=== PATIENT | female | born 2000 | race Caucasian/White ===

== ENCOUNTER 2024-09-03 05:34 | Inpatient (IN) | payer OTHER, SELFPAY ==
[2024-09-03] VITALS (189 sets, daily range): BP systolic 68–134; BP diastolic 32–85; PULSE 81–154; RESP 14; TEMP 36.2–37.7; O2SAT 88–100; BMI 32.3
--- NOTE | 2024-09-03 05:34 | LDADM ---
This patient, Veena Montalvo, was admitted to Labor/Delivery/Recovery 108 on 09/03/24 at 05:35. Plans for labor, pain management and were discussed with patient. Patient/family oriented to hospital policies and general routines including ID bracelet, bed and alarms, visiting hours, pain management, procedures, bathroom and other care routines, personal items, smoking policy, room service/diet and guest tray routines, security routines, and visiting hours. Patient/Family are encouraged to report perceived risks to care and to ask questions if they do not understand what they are told or what they should do. See OBIX for further documentation.
[2024-09-03] MEDS: LACTATED RINGERS 1,000 ML 125 ML IV CONT ×3 (06:33→13:34)
[2024-09-03 06:49] LABS: Basophils Percent Auto 0.2 % (0.2-1.2); Eosinophils Percent Auto 0.2 % (0-4.4); Hematocrit 36.1 % (37.0-47.0); Hemoglobin 12.1 g/dL (12.0-15.0); Immature Granulocyte Absolute 0.18 K/mm3 (0.00-0.031); Immature Granulocyte Percent A 1.8 % (0-0.5); Lymphocytes Absolute Auto 1.76 K/mm3 (0.9-3.2); Lymphocytes Percent Auto 17.5 % (18.3-44.2); Mean Corpuscular HGB Conc 33.5 g/dl (32-36); Mean Corpuscular Volume 92.6 fl (80-100); Mean Platelet Volume 10.4 fl (7.4-10.4); Monocytes Absolute Auto 0.6 K/mm3 (0.1-0.6); Neutrophils Absolute Auto 7.5 K/mm3 (1.3-6.7); Neutrophils Percent Auto 74.3 % (45.5-73.1); Platelet Count Result 181 k/mm3 (150-375); Red Cell Distribution Width 13.2 % (11.5-14.5); White Blood Count 10.1 K/mm3 (4.5-10.0)
[2024-09-03 07:29] LABS: Glucose 89 mg/dL (65-110)
[2024-09-03 07:57] LABS: Rapid Plasma Reagin Non-Reactive (NonReactive)
--- NOTE | 2024-09-03 08:13 | WPDANESEPP ---
Anes - Eval Pre Procedure Procedure: labor epidural Date/Time: 09/03/24 08:13 Preop Diagnosis: Pain during labor Pre Op Diagnosis: Leaking fluid Patient Data Age: 24 Gender: F Height: 1.65 m Weight: 88 kg Last Vital Signs Temp 36.2 C L 09/03/24 07:13 Pulse 97 09/03/24 08:00 BP 118/78 09/03/24 08:00 Allergies Allergy/AdvReac Type Severity Reaction Status Date / Time No Known Allergies Allergy Unverified 10/09/13 02:34 Home Medications Medication Instructions Recorded Confirmed Type No Home Medications 09/03/24 09/03/24 History Laboratory Tests 09/03/24 09/03/24 06:20 07:13 WBC 10.1 H K/mm3 (4.5-10.0) RBC 3.90 L M/mm3 (4.2-5.4) Hgb 12.1 g/dL (12.0-15.0) Hct 36.1 L % (37.0-47.0) MCV 92.6 fl (80-100) MCH 31.0 pg (26-34) MCHC 33.5 g/dl (32-36) RDW 13.2 % (11.5-14.5) Plt Count 181 k/mm3 (150-375) MPV 10.4 fl (7.4-10.4) Immature Gran % (Auto) 1.8 H % (0-0.5) Neut % (Auto) 74.3 H % (45.5-73.1) Lymph % (Auto) 17.5 L % (18.3-44.2) [place] % (Auto) 6.0 % (2.6-8.5) Eos % (Auto) 0.2 % (0-4.4) Baso % (Auto) 0.2 % (0.2-1.2) Lymph # (Auto) 1.76 K/mm3 (0.9-3.2) [place] # (Auto) 0.6 K/mm3 (0.1-0.6) Eos # (Auto) 0.0 K/mm3 (0-0.3) Baso # (Auto) 0.0 K/mm3 (0.0-0.1) Abs Immat Gran (auto) 0.18 H K/mm3 (0.00-0.031) Absolute Neuts (auto) 7.5 H K/mm3 (1.3-6.7) Absolute Nucleated RBC 0.000 K/mm3 (0.0-0.012) Nucleated RBC % 0.0 % (0.0-0.2) Glucose 89 mg/dL (65-110) RPR Non-reactive (NonReactive) HIV 1&2 Ab/P24 Ag 4thGn Pending Blood Type AB Positive Antibody Screen Negative Patient hx anesthesia problems: none Family hx anesthesia problems: none Results Review: All pre-operative results and documents have been reviewed as part of the pre-operative evaluation. [facility] Past Medical History Medical History History of miscarriage Surgical History Surgical History No history of previous surgery Social History Social History Smoking status: Never smoker Substance use: never Spiritual care concerns: No Exam Day of Procedure 09/03/24 08:13 Patient weight: obese Heart: regular rate and rhythm Lungs: clear to auscultation and normal air movement Airway: Mallampati scale class II Neurological: alert and oriented
[2024-09-03 08:18] LABS: HIV 1/2 Ab P24 Ag Result Negative (Negative)
[2024-09-03] MEDS: TERBUTALINE SULFATE 1 MG/ML VIAL 0.25 MG SUB-Q (09:15)
--- NOTE | 2024-09-03 09:21 | WPDOBADMIT ---
Obstetrics - Admit Note Admission Note: record reviewed. No pertinent additions to the history and/or any subsequent changes in the physical findings that are not consistent with the expected course of the were found. Patient presents for SROM of clear fluid at 0400. Contractions starting soon after. Good movement. Expectant management, patient desires epidural. Additions to the history and/or subsequent changes in the physical findings follow. None.
[2024-09-03 11:36] LABS: Glucose Point of Care 80 mg/dl (65-105)
[2024-09-03 13:37] LABS: Glucose Point of Care 77 mg/dl (65-105)
[2024-09-03 15:48] LABS: Glucose Point of Care 85 mg/dl (65-105)
[2024-09-03] MEDS: OXYTOCIN 30 UNITS/NS 500 ML 30 UNITS/500 ML BAG 999 UNITS IV CONT (17:13)
--- NOTE | 2024-09-03 17:19 | PM.OBPRVD ---
OB - Vaginal Delivery Note Procedure Delivery date: 09/03/24 Delivery monitor: External Uterine and Internal FHT Route of delivery: Episiotomy description: None Laceration Description: Perineal - 2nd Degree Delivery repair: vicryl Specimen: No Quantitative Blood Loss (ml): 100 Anesthesia type: Epidural Disposition: Floor Complications: No immediate complications Narrative: See H&P and notes for details on patient's admission and labor. She progressed to complete cervical dilation and at the appropriate time began pushing. With adequate expulsive efforts by the mother, the baby's head was delivered without difficulty. Nuchal cord was present x1 and was easily reduced. The baby's right shoulder was anterior and delivered under the pubic symphysis without difficulty. The posterior shoulder and the rest of the baby delivered without difficulty. The umbilical cord was doubly clamped and cut after 60 seconds of delayed cord clamping. Care of the infant was then assumed by the nursing staff. Baby Date of : 09/03/24 Gestational Age by Date: 38 gender: Male presentation: vertex position: Left Occiput Anterior Placenta delivery description: Expressed Cord Vessel Description: 3 Vessels, Nuchal Cord, Reduced and Delayed Cord Clamping
[2024-09-03] MEDS: OXYTOCIN 30 UNITS/NS 500 ML 30 UNITS/500 ML BAG 125 UNITS IV CONT (17:40)
[2024-09-03] MEDS: WITCH HAZEL 40 PADS 1 PAD TOPICAL (19:08)
[2024-09-03] MEDS: BENZOCAINE 20% AER SPR (*SP) 56 GM CAN 1 SPRAY TOPICAL (19:09)
[2024-09-03] MEDS: IBUPROFEN 600 MG TABLET PO (21:06)
[2024-09-03] MEDS: ACETAMINOPHEN 325 MG TABLET 650 MG PO (21:06)
[2024-09-04 00:11] VITALS: BP 96/54; PULSE 99; RESP 18; TEMP 36.8; O2SAT 98
[2024-09-04] MEDS: ACETAMINOPHEN 325 MG TABLET 650 MG PO ×3 (03:59→20:02)
[2024-09-04] MEDS: IBUPROFEN 600 MG TABLET PO ×3 (04:00→20:02)
[2024-09-04 04:41] LABS: Hematocrit 31.5 % (37.0-47.0); Hemoglobin 10.4 g/dL (12.0-15.0)
--- NOTE | 2024-09-04 07:20 | PC.NURSE ---
Patient visiting in first floor nursery.
--- NOTE | 2024-09-04 08:44 | P.PNOB_ITS ---
OB - PN: Subj Subjective Date/time seen: 09/04/24 08:44 Interval history: PPD#1 Doing well, pain minimal Tolerating general diet Voiding without issue Baby weaned off CPAP, watching glucose levels OB - PN: Obj Data Labs 09/04/24 03:56 09/03/24 07:13 Labs: Laboratory Results - last 24 hr 09/03/24 09/03/24 09/03/24 11:27 13:32 15:45 Hgb Hct POC Capillary Glucose 80 77 85 09/04/24 03:56 Hgb 10.4 L Hct 31.5 L POC Capillary Glucose OB - PN A/P Assessment and Plan (1) (spontaneous vaginal delivery): Code(s): O80 - Encounter for full-term uncomplicated delivery Status: Acute Plan day: 1 Plan: routine care Time Spent With Patient Time: Total time spent is greater than 50% in coordination of care (as documented) at patient's floor/unit and/or counseling patient: Review of Systems Review of Systems: All systems reviewed & are unremarkable except as noted in HPI and below Exam Const: General: comfortable and no acute distress Orien tation/consciousness: patient oriented x3 Resp: Effort & Inspection: normal respiratory effort
--- NOTE | 2024-09-04 08:45 | PC.NURSE ---
Patient downstairs in level 2 nursery with - will check back with patient once she is back on the unit. ( consult)
[2024-09-04] MEDS: DOCUSATE SODIUM 100 MG CAPSULE PO ×2 (09:59→17:34)
[2024-09-04] MEDS: MULTIVIT/MIN/PREN/FOL AC/IRON TABLET 1 TAB PO (09:59)
[2024-09-04 10:14] VITALS: BP 109/61; PULSE 89; RESP 20; TEMP 36.9; O2SAT 100
[2024-09-04 11:50] VITALS: BP 116/62; PULSE 89; RESP 16; TEMP 36.6; O2SAT 100
--- NOTE | 2024-09-04 13:14 | PC.NURSE ---
1300. Introductions were made, then consulted with patient to assess needs related to . Mother led the conversation with her?plans to feed?her infant and the?experience so far. Mother explains that she is no longer planning to breastfeed infant. She explains she changed her mind because she is going to be going back to work and it will be a lot of work for her. She plans instead to bottle feed with formula. Encouraged mom that it was her choice and we support her decision. Explained to mom to call for assistance with formula feeding if she has questions or concerns. Mom verbalized understanding. Reported to the primary RN.
[2024-09-04 20:05] VITALS: BP 92/56; PULSE 81; RESP 16; TEMP 36.6; O2SAT 99
[2024-09-05 07:25] VITALS: BP 97/54; PULSE 88; RESP 16; TEMP 36.8; O2SAT 100
[2024-09-05] MEDS: ACETAMINOPHEN 325 MG TABLET 650 MG PO (07:41)
[2024-09-05] MEDS: DOCUSATE SODIUM 100 MG CAPSULE PO (07:41)
[2024-09-05] MEDS: IBUPROFEN 600 MG TABLET PO (07:41)
--- NOTE | 2024-09-05 15:57 | PC.NURSE ---
Patient viewed the discharge video Mother & Baby Care, The First Two Weeks . Patient was given the opportunity and encouraged to ask questions. Patient verbalized understanding of information shared and has been given the mother/baby guide for home reference.
[2024-09-06 10:21] VITALS: BP 113/61; PULSE 79; RESP 16; TEMP 36.7; O2SAT 100
--- NOTE | 2024-09-10 07:14 | P.DS_ITS ---
DS: Admitting Diagnosis Discharge Date 09/05/24 Admitting Diagnosis elective induction of labor DS: Discharge Diagnosis Discharge Diagnosis (1) (spontaneous vaginal delivery): Code(s): O80 - Encounter for full-term uncomplicated delivery Status: Acute OB - DS: Summary OB Procedures : None OB Procedures Intrapartum: Spontaneous Vag Delivery OB Procedures: : None Peripartum Data Laceration Description: Perineal - 2nd Degree Episiotomy description: None Time Spent with Patient Time attestation: Total time spent providing and/or coordinating discharge services: Discharge Plan Discharge Attending physician on discharge: Mu Chavez Consulting providers: Allie Torres Discharging Clinician: Mu Chaevz Patient Disposition: Home, Self-Care Activity: may shower, as tolerated and pelvic rest Diet: as tolerated Discharge Instructions: Education: Mom and Baby Guide Given to: Mother Follow-Up: Call your delivering provider's office for an appointment to be seen in: 4 Weeks Mom and baby should come to the [facility] for the follow-up appointment. Appointment Date/Time: September 06, 2024 at 10:00 am What to expect at your follow-up visit: Blood Pressure Check Physical Assessment Call [phone] if you are unable to keep your appointment time. BREAST CARE: * Wear a snug supportive bra. * For engorgement discomfort: Bottle Feeding: * May apply ice packs PERINEAL CARE: * Until bleeding stops, use your willard bottle after urinating * Change your pad frequently throughout the day * You may take sitz baths several times a day (fill your bathtub with warm water and soak for 20 minutes.) Do NOT bathe in the water * No tub baths until seen by your physician - You may shower ACTIVITY: * Rest as much as possible. * Do not exercise or lift anything heavier than your baby (such as laundry or other children.) * Avoid stairs or driving as much as possible. * Do not put anything into the vagina. No douching, tampons, or sexual activity until seen by physician. NOTIFY PHYSICIAN IF YOU HAVE ANY QUESTIONS OR IF ANY OF THE FOLLOWING SYMPTOMS OCCUR: * If your vaginal bleeding becomes foul smelling. * If your vaginal bleeding becomes more heavy than a period or if your bleeding changes from pink to bright red. However, you may pass an occasional walnut- sized clot once or twice for the first week . * If you experience a sharp, shooting pain in your calves. * If you discover a hard, reddened area on your breast or if you experience flu- like symptoms. DIET: * Eat regular, well-balanced meals. * Drink plenty of fluids daily. Stand Alone Forms: General Discharge Information Follow-up/Referrals: Mu Chavez MD [Physician] - 4 Weeks Discharge Medications: New docusate sodium 100 mg Capsule 100 mg PO BID PRN (Reason: Constipation) Qty: 60 0RF ibuprofen 600 mg Tablet 600 mg PO Q6H PRN (Reason: Cramping) Qty: 30 0RF Date of admission: 09/03/24 05:34 Primary Care Provider: PHYSICIAN,CAMPUS COORDINATOR Admitting Provider: Mu Chavez Attending physician on admission: Mu Chavez Condition: Stable
== END 2024-09-05 18:20 | disposition home or self-care (01) | DRG 807 ==
LOC: ANHLDR 06:12 → ANHOBOP 07:33 → ANHLDR 07:34 → ANHOB2 21:35
PROVIDERS: Admitting Provider Obstetrics & Gynecology; Visit Provider Obstetrics & Gynecology
DX: O24.429 Gestational diabetes mellitus in childbirth, unspecified control (principal); Z37.0 Single live birth; O70.1 Second degree perineal laceration during delivery; O69.81X0 Labor and delivery complicated by cord around neck, without compression, not applicable or unspecified; Z3A.37 37 weeks gestation of pregnancy
CPT/HCPCS: 36415; 82947; 82948; 85014; 85018; 85025; 86592; 86703; 86850; 86900; 86901; A9270; G0432; J2590; J2795; J3105; J7120

== ENCOUNTER 2024-10-06 20:27 | Emergency (ER) | payer OTHER, SELFPAY ==
--- NOTE | ~2024-10-06 | CT_ITS ---
CT of the Abdomen and Pelvis: Indication: Gallbladder attack Technique: 2.5 mm axial scans were obtained through the abdomen and pelvis following intravenous adm inistration of 100 cc of Omnipaque 350. Dose reduction technique was used on this scan by utilizing a utomated exposure control and iterative reconstruction technique. The dose-length product (DLP) was 5 31.20 mGy-cm. Findings: Scans through the lung bases are unremarkable. The liver, spleen, pancreas, gallbladder, adrenals and kidneys are within normal limits. No evidence of aortic aneurysm. Left-sided IVC noted. No lymphadenopathy. No bowel obstruction or bowel wall thickening. There is no evidence to suggest acute appendicitis. Images through the pelvis were performed. Urinary bladder unremarkable. No pelvic mass evident. No as cites. Impression: No acute abnormality. Reviewed, dictated and finalized at [facility]. D SAW RUNNER Impression: No acute abnormality.
--- NOTE | 2024-10-06 20:32 | ECG_ITS ---
Test Date: 2024-10-06 20:42:12 Measurements Intervals [place] Rate: 90 P: 13 RI: 165 QRS: 45 QRSD: 78 T: 50 QT: 360 QTc: 441 Interpretive Statements SINUS RHYTHM LOW QRS VOLTAGE IN PRECORDIAL LEADS [QRS DEFLECTION < 1.0 mV IN CHEST LEADS] No previous ECG available for comparison Electronically Signed On 10-07-2024 08:40:54 ARCHITECTURAL REPRESENTATIVE by Sarah Pearson M.D.
[2024-10-06 20:43] VITALS: BP 138/78; PULSE 102; RESP 16; TEMP 36.9; O2SAT 97
[2024-10-06 21:07] LABS: Basophils Percent Auto 0.6 % (0.2-1.2); Eosinophils Absolute Auto 0.1 K/mm3 (0-0.3); Eosinophils Percent Auto 1.4 % (0-4.4); Hematocrit 37.5 % (37.0-47.0); Hemoglobin 12.7 g/dL (12.0-15.0); Immature Granulocyte Absolute 0.05 K/mm3 (0.00-0.031); Immature Granulocyte Percent A 0.7 % (0-0.5); Lymphocytes Absolute Auto 3.02 K/mm3 (0.9-3.2); Lymphocytes Percent Auto 43.5 % (18.3-44.2); Mean Corpuscular HGB Conc 33.9 g/dl (32-36); Mean Corpuscular Hemoglobin 30.2 pg (26-34); Mean Corpuscular Volume 89.3 fl (80-100); Mean Platelet Volume 9.7 fl (7.4-10.4); Monocytes Absolute Auto 0.5 K/mm3 (0.1-0.6); Monocytes Percent Auto 7.8 % (2.6-8.5); Neutrophils Absolute Auto 3.2 K/mm3 (1.3-6.7); Platelet Count Result 204 k/mm3 (150-375); Red Cell Distribution Width 12.7 % (11.5-14.5); White Blood Count 6.9 K/mm3 (4.5-10.0)
[2024-10-06 21:21] LABS: Alanine Aminotransferase 70 U/L (6-35); Albumin Level 4.1 g/dL (3.5-5.1); Alkaline Phosphatase 74 U/L (38-126); Anion Gap 5 mmol/L (4-12); Aspartate Amino Transferase 75 U/L (14-36); Bilirubin,Total 0.5 mg/dL (0.2-1.3); Blood Urea Nitrogen 9 mg/dL (7-17); Calcium 8.8 mg/dL (8.4-10.2); Carbon Dioxide 25 mmol/L (22-30); Chloride 106 mmol/L (98-107); Estimated Glomerular Filt Rate > 60; Glucose 103 mg/dL (65-110); Lipase 258 U/L (23-300); Potassium 4.2 mmol/L (3.4-5.0); Sodium 136 mmol/L (137-145)
--- NOTE | 2024-10-06 21:25 | ED_ITS ---
HPI - Abdominal Pain General Chief Complaint: Abdominal Pain Stated Complaint: severe pain upper abd, under chest Time Seen by Provider: 10/06/24 20:57 History of Present Illness HPI narrative: 24-year-old female who is approximately 1 month presenting to the emergency room with chief complaint of epigastric abdominal pain, back pain. Patient states that she has had 2 episodes where she has excruciating pain that came and no or and then alleviated self shortly thereafter. She states her last episode was approximately 30 minutes prior to arrival while she was in bed not doing anything exertional. Pain is not associated with eating or movement. She endorses nausea vomiting during the 1st episode but no present nauseousness or vomiting or diarrhea. Denies any fever, chills. was uncomplicated and she had normal spontaneous vaginal delivery without any hemorrhage or any concerns during the . Denies any chest pain, shortness a breath, headache, vision changes, trauma, vaginal bleeding, discharge or UTI symptoms. Related Data Allergies Allergy/AdvReac Type Severity Reaction Status Date / Time No Known Allergies Allergy Unverified 10/09/13 02:34 Review of Systems 2 Review of Systems: As reviewed above in HPI PMFSH Past Medical History Medical History History of miscarriage Surgical History Surgical History No history of previous surgery Social History Social History Smoking status: Never smoker Substance use: never Do You Feel Safe in your Home?: Yes Lack of Transportation: No Lack of Food: Never True Current Housing: I Have Housing Concerned About Future Housing: No Difficulty Paying Gas/Electric Bills: No Difficulty Paying for Meds: No Currently Unemployed: No Education: High School Diploma/GED Difficulty w/ Childcare or Family Care: No Spiritual care concerns: No Exam 2 Narrative: GENERAL: [Well-appearing, well-nourished, and in no acute distress.] HEAD: [Normocephalic, atraumatic.] EYES: [PERRLA and EOMI.] ENT: Nares clear, no rhinorrhea or epistaxis. Mucous membranes moist. NECK: Supple. CHEST: [Clear to auscultation. No respiratory distress.] HEART: [Regular rate and rhythm]. No murmur heard. [Normal peripheral pulses.] ABDOMEN: [Soft, nondistended], mild epigastric tenderness but no CVA tenderness, [No rigidity or guarding] EXTREMITIES: Normal range of motion. [No edema.] SKIN: Warm, dry, no rash. NEURO: [No focal deficits]. Alert and oriented [x3.] PSYCH: [Normal mood and affect.] Course Vital Signs Vital signs: Vital Signs Temperature 36.9 C 10/06/24 20:43 Pulse Rate 102 H 10/06/24 20:43 Respiratory Rate 16 10/06/24 20:43 Blood Pressure 138/78 10/06/24 20:43 Pulse Oximetry 97 10/06/24 20:43 Temperature 36.4 C 10/07/24 01:06 Pulse Rate 95 10/07/24 01:06 Respiratory Rate 14 10/07/24 01:06 Blood Pressure 120/65 10/07/24 01:06 Pulse Oximetry 95 10/07/24 01:06 MDM - Abdominal Pain MDM Narrative Medical decision making narrative: 24-year-old female presenting to the emergency department for evaluation of epigastric and back pain. She states that the cane comes and goes in waves and is very short-lived. No history of gallstones or appendicitis or nausea. No abdominal surgeries. She had a normal spontaneous vaginal delivery over 1 month prior without any complications during the or afterwards. Patient states that she did have an episode nausea vomiting or her last flare up of this pain a week ago but has not had any nausea vomiting or diarrhea since. She has some minimal epigastric tenderness with palpation but otherwise is well appearing without any signs of peritonitis. Vital signs are reassuring without any fever, hypoxia, significant tachycardia blood pressure concerns. Differential includes cholelithiasis, cholecystitis, renal colic, renal stones, less likely pancreatitis or urinary infection. CBC, CMP, lipase, urinalysis were obtained as well as a CT scan with IV contrast. Patient presently is feeling okay without any symptoms so will hold off on additional medications unless she has recurrence of her symptoms. Workup shows no leukocytosis or anemia. Normal platelets. Chemistry panel with normal electrolytes and normal renal function panel normal glucose. LFTs have some mild elevations in both ALT and AST but total bilirubin is normal as well as the lipase. Urinalysis has some leukocyte esterase and white blood cells as well as back area however patient has no urinary complaints whatsoever denies any burning, itchiness, discharge her other complaints in the general urinary system. Elected to not treat this as this is likely asymptomatic bacteriuria but did inform the patient that if she has any development of symptoms to seek re-evaluation for this. test negative. Her CT scan shows normal appearing appendix without any bowel findings, no hydronephrosis or nephrolithiasis and bladder appears unremarkable. Gallbladder otherwise appears unremarkable by CT scan without any biliary dilatation. Given patient's elevated LFTs and the classic signs and symptoms of biliary colic I believe she likely passed a gallbladder stone and given her resolution of symptoms without any evidence of gallbladder stones or gallbladder sludge or any acute cholecystitis I believe she can be safe for discharge home at this time. I discussed the findings with the patient as well as the plan of care going forward including low-fat diet and monitoring for any recurrence and she expressed understanding of the instructions and outpatient follow-up. She was given return precautions including any worsening pain, recurrent nausea, vomiting, any other concerns such as fever or urinary infection symptoms. Patient stable for discharge at this time. Medical Records Attestation: I reviewed the patient's medical records. Lab Data Attestation: I reviewed the patient's lab results. 10/06/24 21:01 10/06/24 21:01 Labs: Lab Results 10/06/24 10/06/24 10/06/24 Range/Units 21:01 22:44 22:47 WBC 6.9 (4.5-10.0) K/mm3 RBC 4.20 (4.2-5.4) M/mm3 Hgb 12.7 (12.0-15.0) g/dL Hct 37.5 (37.0-47.0) % MCV 89.3 (80-100) fl MCH 30.2 (26-34) pg MCHC 33.9 (32-36) g/dl RDW 12.7 (11.5-14.5) % Plt Count 204 (150-375) k/mm3 MPV 9.7 (7.4-10.4) fl Immature Gran % (Auto) 0.7 H (0-0.5) % Neut % (Auto) 46.0 (45.5-73.1) % Lymph % (Auto) 43.5 (18.3-44.2) % [place] % (Auto) 7.8 (2.6-8.5) % Eos % (Auto) 1.4 (0-4.4) % Baso % (Auto) 0.6 (0.2-1.2) % Lymph # (Auto) 3.02 (0.9-3.2) K/mm3 [place] # (Auto) 0.5 (0.1-0.6) K/mm3 Eos # (Auto) 0.1 (0-0.3) K/mm3 Baso # (Auto) 0.0 (0.0-0.1) K/mm3 Abs Immat Gran (auto) 0.05 H (0.00-0.031) K/mm3 Absolute Neuts (auto) 3.2 (1.3-6.7) K/mm3 Absolute Nucleated RBC 0.000 (0.0-0.012) K/mm3 Nucleated RBC % 0.0 (0.0-0.2) % Sodium 136 L (137-145) mmol/L Potassium 4.2 (3.4-5.0) mmol/L Chloride 106 (98-107) mmol/L Carbon Dioxide 25 (22-30) mmol/L Anion Gap 5 (4-12) mmol/L BUN 9 (7-17) mg/dL Creatinine 0.70 (0.7-1.0) mg/dL Estim Creat Clear Calc Not Reportable Estimated GFR > 60 (59 - ) Glucose 103 (65-110) mg/dL Calcium 8.8 (8.4-10.2) mg/dL Total Bilirubin 0.5 (0.2-1.3) mg/dL AST 75 H (14-36) U/L ALT 70 H (6-35) U/L Alkaline Phosphatase 74 (38-126) U/L Total Protein 7.0 (6.3-8.2) g/dL Albumin 4.1 (3.5-5.1) g/dL Lipase 258 (23-300) U/L Urine Color Yellow (Yellow) Urine Appearance Cloudy H (Clear) Urine pH 5.5 (5.0-9.0) Ur Specific [place] 1.006 (1.001-1.035) Urine Protein Negative (Negative) mg/dL Urine Glucose (UA) Negative (Negative) mg/dL Urine Ketones Negative (Negative) mg/dL Ur Blood (Man) 2+ H (Negative) Urine Nitrate Negative (Negative) Urine Bilirubin Negative (Negative) Urine Urobilinogen 0.2 (<2.0) mg/dL Add Ur Microanalysis Reviewed Leukocyte Esterase Rfl 2+ H (Negative) ENRIQUE/UL Urine RBC 6-10 H (0-2) /hpf Urine WBC 21-50 H (0-3) /hpf Ur Squamous Epith Cells Few (Few) /hpf Urine Bacteria 3+ H /hpf Urine Casts 0-2 Urine Mucus Present /lpf POC Urine HCG, Qual Negative (Negative) Imaging Data Attestation: I personally reviewed and interpreted this imaging study as follows: Discharge Plan Discharge Clinical Impression: Gallbladder attack, Abnormal LFTs (liver function tests), Asymptomatic bacteriuria Patient Disposition: Home, Self-Care Condition: Stable Instructions: Antibiotic Form, Biliary Colic (ED) Additional Instructions: Your signs and symptoms as well as her labs are very classic for was called biliary colic or gallbladder attack. There are no identifiable stones or signs of a gallbladder that needs to come out emergently and there is no infection actively. If this were to recur constantly or have worsening symptoms like persistent pain that does not go away, intractable nausea or vomiting denied would recommend you get repeat evaluation or follow-up with your regular doctor outpatient to get referred to General surgery however at this time you are safe for discharge home. Patient Language: Azeri Prescriptions: No Action docusate sodium 100 mg Capsule 100 mg PO BID PRN (Reason: Constipation) Qty: 60 0RF ibuprofen 600 mg Tablet 600 mg PO Q6H PRN (Reason: Cramping) Qty: 30 0RF Follow-up/Referrals: PHYSICIAN,MACHINE SET UP OPERATOR [employer] [Primary Care Provider] - Time of Disposition: 02:27
[2024-10-06 22:49] LABS: BEDSIDEPREGUCG Negative (Negative)
[2024-10-06 22:51] VITALS: BP 119/72; PULSE 84; RESP 16; TEMP 36.7; O2SAT 100
[2024-10-06 23:05] LABS: Add Urine Microscopic? YES; Appearance Urine Cloudy (Clear); Bacteria Urine 3+ /hpf; Bilirubin Urine Negative (Negative); Blood Urine 2+ (Negative); Color Urine Yellow (Yellow); Glucose Urine UA Negative (Negative); Ketones Urine Negative (Negative); Leukocyte Esterase Ur 2+ LEU/UL (Negative); Mucus Urine Present /lpf; Need Manual Microscopic Reviewed; Nitrate Urine Negative (Negative); Non Pathogenic Casts 0-2; Protein Urine Negative (Negative); Specific Grav Ur 1.006 (1.001-1.035); Squamous Epithelial Cell Urine Few /hpf (Few); Urobilinogen Urine 0.2 mg/dL (<2.0); WBC Urine 21-50 /hpf (0-3); pH Urine 5.5 (5.0-9.0)
[2024-10-07 01:06] VITALS: BP 120/65; PULSE 95; RESP 14; TEMP 36.4; O2SAT 95
--- OUTSIDE RECORDS SUMMARY | 2024-10-11 05:28 | XMS_ITS | Data Portability ---
Author Organization [facility] [place] Address [address] [place] [place] [address] [place] [address] Assessment No assessment recorded. Plan of Treatment Reminders Order Date Submit Date Provider Last Modified By Organization Details Last Modified Time Details Appointments POST 2024 08:30A M ROSALBA CARLSON MD Not available Not available Not available Lab None recorded . Referral None recorded . Procedures None recorded . Surgeries None recorded . Imaging US, obstetri c, follow-u p 2023 024 [address], [address], [place], [address], 08/03/2024 12:20:53 US, obstetravani c, follow-u p [email or web address] [place] [address] [facility] [address], [place], [address], 08/24/2024 12:55:57 Medication Orders None recorded . Patient TargetsNo targets recorded. Patient InstructionsNo instructions recorded. Reason for Referral None Reported. Results Created Date Observation Date Name Description Value Unit Range Abnormal Flag Note LastModifiedBy Organization Detail LastModifiedTime 07/06/20 24 07/06/2024 HEMAT OCRIT (HCT) HCT 35.9 % (based on docume nted legal sex) 34.0-4 5.0 Not Available [facility] (Lab) [address], [place], [address], 07/07/2024 10:10:44 09/13/20 24 07/06/2024 HEMOG LOBIN (HGB) HGB 11.9 g/dL (based on docume nted legal sex) 11.6-1 5.4 Not Available [facility] (Lab) [address], [place], [address], 07/07/2024 10:10:44 07/06/20 24 07/06/2024 GTT - GESTA AUTUMN L SCREE N, ACOG OB glucose, 1 hour screen 160 mg/dL 70-135 high Not Available [facility] (Lab) [address], [place], [address], 07/07/2024 10:10:45 07/06/20 24 07/06/2024 HIV 1/2 ANTIG EN/AN TIBOD Y, REFLE X CONFI RMATI ON HIV antigen/anti body Nonrea ctive nonrea ctive HIV-1 antig en and HIV-1 /HIV- 2 antib odies were not detec va. No labor atory evide nce of HIV infec tion. Not Available [facility] (Lab) [address], [place], [address], 07/07/2024 10:10:45 07/06/20 24 07/06/2024 RPR SCREE N, REFLE X TITER /CONF IRMAT ION RPR screen Nonrea ctive nonrea ctive Not Available [facility] (Lab) [address], [place], [address], 07/07/2024 10:10:46 07/13/20 24 07/13/2024 GTT - GESTA AUTUMN L, 3 HOUR, ACOG glucose, fasting acog 74 mg/dL 70-94 Fasti ng: Y Not Available [facility] (Lab) [address], [place], [address], 07/14/2024 06:32:16 07/13/20 24 07/13/2024 GTT - GESTA AUTUMN L, 3 HOUR, ACOG glucose, 1 hour acog 166 mg/dL 70-179 Fasti ng: Y Not Available [facility] (Lab) [address], [place], [address], 07/14/2024 06:32:16 07/13/20 24 07/13/2024 GTT - GESTA AUTUMN L, 3 HOUR, ACOG glucose, 2 hour acog 169 mg/dL 70-154 high Fasti ng: Y Not Available [facility] (Lab) [address], [place], [address], 07/14/2024 06:32:16 07/13/20 24 07/13/2024 GTT - GESTA AUTUMN L, 3 HOUR, ACOG glucose, 3 hour acog 148 mg/dL 70-139 high Fasti ng: Y Not Available [facility] (Lab) [address] [place], [address], 07/14/2024 06:32:16 08/31/20 24 08/31/2024 CULTU RE: GROUP B STREP SCREE N, REFLE X SUSCE PTIBI LITY result report SEE RESULT S BELOW Test: Cultu re: Group B Strep , Refle x Susce ptibi lity ([facility] ) Speci men Sourc e: Vagin a/Rec darío Speci men Type: Vagin al/Re ctal Speci men Date: 2023 1606 Resul t Date: 09/03 1404 Resul t Statu s: Final resul t Abnor mal: No Resul ting Lab: [facility] [address] [facility] [address] Tel: CULTU RE ----- ----- ----- --- No Group B strep isola va at 2 days (juanjo ctive broth enhan cemen t) Not Available [facility] (Lab) [address], [place], [address], 09/03/2024 15:07:41 08/03/20 24 08/03/2024 US, obste tric, follo w-up No observ ation record ed. [facility] [address], [place], [address], 08/03/2024 17:17:41 08/03/20 24 08/03/2024 US, obste tric, follo w-up No observ ation record ed. [email or web address] [address], [place], [address], 08/06/2024 15:39:18 08/24/2008/24/2024 US, obste tric, follo w-up No observ ation record ed. [facility] [address], [place], [address], 08/24/2024 13:56:13 08/24/2008/24/2024 US, obste tric, follo w-up No observ ation record ed. JANELL [address], [place], [address], 08/27/2024 10:28:40 Result Notes None recorded. Problems Name Problem SNOMED Code Status Onset Date Resolution Date Notes Provider Name and Address Organization Details Recorded Time Pregnanc y 23542216 Completed 202309/13/2024 Harjeet puga, [facility] 4 16:27:58 Anxiety 15273410 Completed Untreate d, possible panic attacks Nilton Rodríguez MD [address], [place], [address], [facility] 4 13:07:27 Gonorrhe a 39652610 Completed treated Nilton Rodríguez MD [address], [place], [address], [facility] 4 13:07:27 clubfoot 3853028849 9101 Completed 2023 possibly - to see [facility] 06/27 @ 1:45 Level II & OV Eun Dietrich null, [facility] 14:54:27 History of SARS-CoV -2 6203559660 75725549 Active 2023 ROSALBA CARLOSN MD [address], [place], [address], [facility] 4 11:18:44 History of SARS-CoV -2 9344921320 31721059 Completed 2023 ROSALBA CARLSON MD [address], [place], [address], [facility] 11:18:44 Gestatio nal diabetes mellitus 30781207 Completed serial growth , checking bs TINA puga, [facility] 17:55:50 Gestatio nal diabetes mellitus 62177846 Active serial growth , checking bs TINA puga, [facility] 17:55:50 Problem Notes None recorded. Procedures Surgical History None recorded. Imaging Results Imaging Date Name Status LastModified by Organiz ation Details LastModified Time 08/03/2024 US, obstetric, follow-up completed [facility] [address], [place], [address], 08/03/2024 17:17:41 08/03/2024 US, obstetric, follow-up completed [email or web address] [address], [place], [address], 08/06/2024 15:39:18 08/24/2024 US, obstetric, follow-up completed [facility] [address], [place], [address], 08/24/2024 13:56:13 08/24/2024 US, obstetric, follow-up completed JANELL [address], [place], [address], 08/27/2024 10:28:40 Procedure Notes None recorded. Medical Equipment None Reported. Allergies No known drug allergies Medications Name Sig Start Date Stop Date Status Note LastModified by Organization Details LastModified Time Zofran 4 mg tablet Take 1 tablet every 4-6 hours by oral route as needed. 07/06 completed Not Available Not Available Not Available active Not Available Not Avai lable Not Available Nexplanon 68 mg subdermal implant Insert 02/15 completed Prescribe d Elsewhere : No Locati on: [facility] Mo dify By: agustin En counter DateTime: 9 07:41:11 PM Not Available Not Available Not Available Vitals Date Recorded Body height Body mass index (BMI) Body weight Systolic blood pressure Diastolic blood pressure Provider Name and Address Organization Details Last Updated DateTime 08/07/2024 165.1 cm 32.4 kg/m2 82866.51 g 138 mm[Hg] 82 mm[Hg] [facility] 4 14:59:08 Date Recorded Body height Body mass index (BMI) Body weight Systolic blood pressure Diastolic blood pressure Provider Name and Address Organization Details Last Updated DateTime 08/24/2024 165.1 cm 32 kg/m2 44258.74 g 130 mm[Hg] 84 mm[Hg] [facility] 4 12:36:29 Date Recorded Body height Body mass index (BMI) Body weight Systolic blood pressure Diastolic blood pressure Provider Name and Address Organization Details Last Updated DateTime 08/31/2024 165.1 cm 32 kg/m2 43173.74 g 136 mm[Hg] 84 mm[Hg] [facility] 4 16:14:53 Social History Question Answer Notes LastModified by Organizat ion Details LastModified Time What Is Your Level Of Alcohol Consumption? Occasional [email or web address] Information not available 02/16/2024 How Many Years Have You Consumed Alcohol? 5 [email or web address] Information not available 02/16/2024 Are You Blind Or Do You Have Difficulty Seeing? No Information not available 02/16/2024 What Is Your Level Of Caffeine Consumption? Heavy [email or web address] Information not available 02/16/2024 How Much Tobacco Do You Chew? None [email or web address] Information not available 02/16/2024 In The 14 Days Before Symptom Onset, Have You Had Close Contact With A Laboratory-confir med COVID-19 While That Case Was Ill? No [email or web address] Information not available 02/16/2024 In The 14 Days Before Symptom Onset, Have You Had Close Contact With A Person Who Is Under Investigation For COVID-19 While That Person Was Ill? No [email or web address] Information not available 02/16/2024 Have You Been To An Area Known To Be High Risk For COVID-19? No [email or web address] Information not available 02/16/2024 Are You Currently Employed? Yes [email or web address] Information not available 03/15/2024 Are You Deaf Or Do You Have Serious Difficulty Hearing? No [email or web address] Information not available 02/16/2024 What Type Of Diet Are You Following? REGULAR [email or web address] Information not available 02/16/2024 What Is The Highest Grade Or Level Of School You Have Completed Or The Highest Degree You Have Received? HG60485-2 [email or web address] Information not available 02/16/2024 What Is Your Occupation? [employer] [email or web address] Information not available 02/16/2024 Are There Any Guns Present In Your Home? No [email or web address] Information not available 02/16/2024 Do You Use Protection During Sex? No [email or web address] Information not available 02/16/2024 Do You Use Your Seat Belt Or Car Seat Routinely? Yes [email or web address] Information not available 02/16/2024 Are You Sexually Active? Yes Information not available 03/15/2024 Do You Have Smoke And Carbon Monoxide Detectors In Your Home? Yes Information not available 02/16/2024 How Much Tobacco Do You Smoke? No [email or web address] Information not available 02/16/2024 Do You Feel Stressed (tense, Restless, Nervous, Or Anxious, Or Unable To Sleep At Night)? [id number] [email or web address] Information not available 02/16/2024 Do You Use Any Illicit Or Recreational Drugs? Yes [email or web address] Information not available 02/16/2024 Do You Use Sunscreen Routinely? No [email or web address] Information not available 02/16/2024 Have You Used IV Drugs? No [email or web address] Information not available 02/16/2024 Sex: Unknown Functional Status Question Answer Note LastModified by Organizat ion Details LastModified Time Do you have difficulty walking or climbing stairs? No [email or web address] Information not available 03/15/2024 Are you able to walk? YESWOREST [email or web address] Information not available 02/16/2024 Are you able to care for yourself? Yes [email or web address] Information not available 03/15/2024 Do you have difficulty dressing or bathing? No [email or web address] Information not available 03/15/2024 What is your exercise level? Occasional [email or web address] Information not available 02/16/2024 Mental Status None recorded. Family History Nothing Reported. Medical History Condition Response Allergies (Food, seasonal, environmental ) N Other N Drug/Latex Allergies/Reactions N Blood Transfusion N Breast Cancer N Dermatologic Disorders N Lung Disease N Defects or Inherited Disease N Breast Problem N Gestational Diabetes N Hematologic disorders N Anesthesia Complications N History of STI N Deep Vein Thrombosis N Polycystic ovary syndrome N Anxiety Disorder N Autoimmune disease N Arthritis N Polyps N Infertility N Acid Reflux (GERD) N History of abnormal pap N Cancer N Varicosities N Stroke N Neurologic/Epilepsy N Endometriosis N High Cholesterol N Fibromyalgia N Headaches N Kidney Disease N Heart Problems N Thyroid Problems N Kidney or Bladder Problems N GI Problems N Eating Disorder N Anemia N Art (IVF or FET) N Psychiatric Illness N Ovarian Cancer N Diabetes N Pulmonary (TB, Asthma) N Hepatitis/Liver Disease N No Past Medical History N Eczema N Urinary Tract Infection N Abuse/Domestic Violence N Asthma N Trauma/Violence N Depression/ depression N Heart Disease N Pre-Eclampsia N Hypertension N Osteoporosis N Thrombophilias N Gynecological History Statement/Question Response N STIs/STDs N Was last menstrual period normal Y HPV Vaccine N Duration of Flow (days) 4 Current Control Method Frequency of Cycle (Q days) 0 Sexually Active? Y Age of first menstrual cycle 15 Date of Last Pap Smear Sexual Problems? N LMP Unknown N Obstetrics History GPAL:G 3 P 1 0 2 1 Type Value Full Term 1 Spontaneous 2 Living 1 Total 3 Past Encounters Encounter ID Performer Location Encounter Start Date Encounter Closed Date Diagnosis/Indication Diagnosis SNOMED-CT Code Diagnosis ICD10 Code [id number] Lina Ardon [place] [address] [address] 02/16/2024 14:16:31 02/16/2024 14:59:03 screening 948904338 Z36.87 Z3A.08 [id number] Nilton Rodríguez MD [place] [address],[place] [address] 02/16/2024 14:18:49 02/16/2024 16:24:21 Amenorrhea 57462735 N91.2 [id number] Lina Ardon [place] [address],[place] [address] 03/15/2024 11:52:10 03/15/2024 12:37:30 screening 705862740 Z36.82 Z3A.12 [id number] Nilton Rodríguez MD [place] [address],[place] [address] 03/15/2024 11:52:27 03/15/2024 14:55:19 Routine care 637677208 Z34.91 [id number] Nilton Rodríguez MD [place] [address],[place] [address] 04/13/2024 10:24:09 04/13/2024 11:46:23 Routine care 521278270 Z34.91 [id number] [facility] [address],[place] [address] 05/11/2024 11:22:03 05/11/2024 12:25:31 screening for malformation 990555471 Z36.3 Z3A.20 [id number] Nilton Rodríguez MD [place] [address],[place] [address] 05/11/2024 11:22:58 05/11/2024 13:09:20 Routine care 097494048 Z34.91 [id number] [facility] [address] [place] [address] 06/15/2024 10:50:40 06/15/2024 12:21:12 screening 196911203 Z36.2 Z3A.25 [id number] Nilton Rodríguez MD [place] [address],[place] [address] 06/15/2024 10:50:59 06/15/2024 12:49:10 Routine care 805887368 Z34.91 [id number] Rajani Cunningham [facility] [address],[place] [address] 06/20/2024 11:57:10 06/21/2024 09:03:31 08690931 Z33.1 [id number] ROSALBA CARLSON MD [place] [address],[place] [address] 07/06/2024 10:13:34 07/06/2024 11:30:00 History of SARS-CoV-2 9718170869 66653029 Z86.16 Gestation period, 28 weeks 62990163 Z3A.28 [id number] Eun Dietrich [place] [address],[place] [address] 07/20/2024 10:50:29 07/20/2024 14:01:45 Gestational diabetes mellitus 21301779 O24.410 [id number] ROSALBA CARLSON MD [place] [address],[place] [address] 07/20/2024 10:50:58 07/20/2024 15:19:49 Gestational diabetes mellitus 80583921 O24.410 History of SARS-CoV-2 29 94013607 24309226 Z86.16 Gestation period, 30 weeks 92224280 Z3A.30 [id number] [facility] [address],[place] [address] 08/03/2024 10:22:11 08/03/2024 11:26:00 Gestational diabetes mellitus 33564587 O24.410 Z86.16 Z3A.32 [id number] ROSALBA CARLSON MD [place] [address],[place] [address] 08/07/2024 14:44:04 08/07/2024 16:05:05 Gestational diabetes mellitus 61563106 O24.410 Gestation period, 33 weeks 57742309 Z3A.33 [id number] Crissy Claudine [place] [address],[place] [address] 08/24/2024 11:27:16 08/24/2024 12:10:58 Gestational diabetes mellitus 23292333 O24.410 Z86.16 Z3A.35 [id number] ROSALBA CARLSON MD [place] [address],[place] [address] 08/24/2024 11:28:00 08/24/2024 12:53:50 Gestational diabetes mellitus 92460187 O24.410 clubfoot [id number] 1 9101 O35.HXX9 Gestation period, 35 weeks 79517014 Z3A.35 [id number] ROSALBA CARLSON MD [place] [address],[place] [address] 08/31/2024 15:57:31 09/04/2024 02:40:03 Gestational diabetes mellitus 55251389 O24.410 Gestation period, 37 weeks 70474666 Z3A.37 Health Concerns Section Related Observation LastModified by Organization Detai ls LastModified Time None Recorded Concern Status LastModified by Organization Details LastModified Time None Recorded Advance Directives Directive None Recorded Payers Encounter Date Sequence Insurance Name Policy Number Policy Cast Covered Member ID Cast Member ID Guarantor Name 08/03/2024 1 [employer] [id number] [employer] [id number] Veena Hanks 08/07/2024 1 [employer] [id number] Veena Hanks [id number] Veena Hanks 08/24/2024 1 [employer] [id number] Veena Hanks [id number] Veena Hanks 08/24/2024 1 [employer] [id number] [employer] [id number] Veena Hanks 08/31/2024 1 [employer] [id number] [employer] [id number] Veena Hanks OBGyn Episode Ob Episode Information Episode Created Date Number of Fetuses Patient Bloodtype Patient rh Status Prepregnancy Weight lbs Domestic Partner Domestic Partner Phone Father Name Carry All Driver Status 03/15/20 24 1 AB Positive 188 CLOSED Fetus Data First Name Last Name Admitted to NICU Weight (g) Sex Living Outcome Pediatric Complications Fetus ID Race Codes Race Delivery Type 3090.09 55 M true Full Term [email or web address] [id number] Vaginal Delivery Problems Problem Notes failed 1 hr - 3hr gtt 07/13Bo y,MFM Appt: 06/27 145p u/s and ov - no club foot noted on ultrasound.bg,rn Problem Name Start Date End Date Resolution Snomed Code Not e Gestational diabetes mellitus 11332166 serial joe wth , checking bs QID Anxiety 78970419 Untreated, possible panic attacks clubfoot 06/15/2024 27356809127325 possibly - to see [facility] 06/27 @ 1:45 Level II & OV History of SARS-CoV-2 07/06/2024 150014090326817632 Gonorrhea 51007556 treated José Calculation JOSÉ Calculation Method Initial José Date Initial Exam Date Initial Exam Provider Initial Ultrasound Date Last Menstrual Period Date Ultra Sound Weeks Gestation Conception by IVF Embryo Age at Transfer Date of Transfer 09/22/20 24 03/15/20 24 02/16/2024 8 Eighteen To Twenty Week José Update Ultra Sound Date Fundal Height At Umbil Quickening Date Ultra Sound Latest Weeks Gestation Final José Confirmed By Final José Confirmed Date Final José Date Ultra Sound Latest Days Gestation 0 [email or web address] 03/15/2024 09/22/20 24 0 Pre- Flowsheet Flowsheet Date 03/15/2024 Copeland Score Blood Edema Fundus Height Fundus Units Glucose Ketones Leukocytes Nitrite Labor Signs Protein Cervic Dilation Cervic Effacement Cervic Station Type Weight in lbs Pre/Post Dialysis Refused Weight 188.739700124251 BP Diastolic BP Location Tested BP Systolic BP Type 75 L arm 121 sitting Fetus Heart Rate Present A 153 Fetus Movement Comments This patient is a 23-year-ol d 3 para 745070 weeks' gestation who presents for initial care. She has a history of term vaginal births. Her medical, surgical, obstetric history is unremarkable. She is vaccinated. She was given precautions recommendations for . We talked about vaccines in . Talked about care in detail. She is having genetic testing. She had a normal 12 week ultrasound. To begin routine care. Flowsheet Date 04/13/2024 Copeland Score Blood Edema Fundus Height Fundus Units Glucose Ketones Leukocytes Nitrite Labor Signs Protein Cervic Dilation Cervic Effacement Cervic Station neg none Type Weight in lbs Pre/Post Dialysis Refused Weight 190.352579083353 BP Diastolic BP Location Tested BP Systolic BP Type 82 L arm 127 sitting Fetus Heart Rate Present A 145 Fetus Movement A No Comments reports recent chest pain, l kassandra she related to anxiety attack, she was laying down. With the tightness and shortness in her sternum help high. [place] like there was a bubble there was painful. She has had panic attacks in the past. She was offered treatment she wants to observe. Flowsheet Date 05/11/2024 Copeland Score Blood Edema Fundus Height Fundus Units Glucose Ketones Leukocytes Nitrite Labor Signs Protein Cervic Dilation Cervic Effacement Cervic Station Type Weight in lbs Pre/Post Dialysis Refused BP Diastolic BP Location Tested BP Systolic BP Type Fetus Heart Rate Present Fetus Movement Comments Flowsheet Date 05/11/2024 Copeland Score Blood Edema Fundus Height Fundus Units Glucose Ketones Leukocytes Nitrite Labor Signs Protein Cervic Dilation Cervic Effacement Cervic Station Type Weight in lbs Pre/Post Dialysis Refused Weight 190.786591534270 BP Diastolic BP Location Tested BP Systolic BP Type 77 L arm 118 sitting Fetus Heart Rate Present A 139 Fetus Movement Comments no complaints, no problems, routine care, anatomy ultrasound today, incomplete Flowsheet Date 06/15/2024 Copeland Score Blood Edema Fundus Height Fundus Units Glucose Ketones Leukocytes Nitrite Labor Signs Protein Cervic Dilation Cervic Effacement Cervic Station Type Weight in lbs Pre/Post Dialysis Refused BP Diastolic BP Location Tested BP Systolic BP Type Fetus Heart Rate Present Fetus Movement Comments Flowsheet Date 06/15/2024 Copeland Score Blood Edema Fundus Height Fundus Units Glucose Ketones Leukocytes Nitrite Labor Signs Protein Cervic Dilation Cervic Effacement Cervic Station 26 cm Type Weight in lbs Pre/Post Dialysis Refused 195.537503647896 BP Diastolic BP Location Tested BP Systolic BP Type 82 L arm 138 sitting Fetus Heart Rate Present A 141 Fetus Movement A Yes Comments no complaints, no problems, routine care, no contractions, no vaginal bleeding, no loss of fluid, no cramping Discussed possible clubfoot -to see [facility] Flowsheet Date 06/20/2024 Copeland Score Blood Edema Fundus Height Fundus Units Glucose Ketones Leukocytes Nitrite Labor Signs Protein Cervic Dilation Cervic Effacement Cervic Station Type Weight in lbs Pre/Post Dialysis Refused BP Diastolic BP Location Tested BP Systolic BP Type 89 138 Fetus Heart Rate Present Fetus Movement Comments Pt here to doppler hea rt tones due to decreased movement. heart tones 147-164. Pt informed of acceleration noted while listening for full minute. Pt reassured. Rajani Dozier RN Flowsheet Date 07/06/2024 Copeland Score Blood Edema Fundus Height Fundus Units Glucose Ketones Leukocytes Nitrite Labor Signs Protein Cervic Dilation Cervic Effacement Cervic Station neg none trace neg Type Weight in lbs Pre/Post Dialysis Refused Weight 193.532947186446 BP Diastolic BP Location Tested BP Systolic BP Type 83 L arm 125 sitting Fetus Heart Rate Present A 140 Fetus Movement A Yes Comments Doing better, had COVID last week. Still having fatigue. Discussed bASA ppx. Good movement. No cramping or bleeding. Was seen by MFM, no evidence of clubfoot. Will repeat growth US at 32 weeks due to hx of COVID. GCT and labs today. RTC 2 weeks. Flowsheet Date 07/20/2024 Copeland Score Blood Edema Fundus Height Fundus Units Glucose Ketones Leukocytes Nitrite Labor Signs Protein Cervic Dilation Cervic Effacement Cervic Station Type Weight in lbs Pre/Post Dialysis Refused BP Diastolic BP Location Tested BP Systolic BP Type Fetus Heart Rate Present Fetus Movement Comments Flowsheet Date 07/20/2024 Copeland Score Blood Edema Fundus Height Fundus Units Glucose Ketones Leukocytes Nitrite Labor Signs Protein Cervic Dilation Cervic Effacement Cervic Station neg none none trace Type Weight in lbs Pre/Post Dialysis Refused 192.644610184019 BP Diastolic BP Location Tested BP Systolic BP Type 72 L arm 112 sitting Fetus Heart Rate Present A 145 Fetus Movement A Yes Comments Good movement. No cram ping or bleeding. Diet teaching done today. Discussed risks of gestational diabetes for both patient and baby. Discussed trial of diet control, otherwise would recommend insulin as first line treatment. Growth US scheduled for next visit. RTC 2 weeks. Flowsheet Date 08/03/2024 Copeland Score Blood Edema Fundus Height Fundus Units Glucose Ketones Leukocytes Nitrite Labor Signs Protein Cervic Dilation Cervic Effacement Cervic Station Type Weight in lbs Pre/Post Dialysis Refused BP Diastolic BP Location Tested BP Systolic BP Type Fetus Heart Rate Present Fetus Movement Comments Flowsheet Date 08/07/2024 Copeland Score Blood Edema Fundus Height Fundus Units Glucose Ketones Leukocytes Nitrite Labor Signs Protein Cervic Dilation Cervic Effacement Cervic Station neg none none trace Type Weight in lbs Pre/Post Dialysis Refused Weight 195.243413131367 BP Diastolic BP Location Tested BP Systolic BP Type 82 L arm 138 sitting Fetus Heart Rate Present A 130 Fetus Movement A Yes Comments Patient c/o of side pains, u sually in the mornings. Growth US 08/03, EFW 36%. vertex. Patient reports good glycemic control. Good movement. No cramping or bleeding. Some BH contractions. Dsicussed RSV and tdap vaccines. RTC 2 weeks. Flowsheet Date 08/24/2024 Copeland Score Blood Edema Fundus Height Fundus Units Glucose Ketones Leukocytes Nitrite Labor Signs Protein Cervic Dilation Cervic Effacement Cervic Station Type Weight in lbs Pre/Post Dialysis Refused BP Diastolic BP Location Tested BP Systolic BP Type Fetus Heart Rate Present Fetus Movement Comments Flowsheet Date 08/24/2024 Copeland Score Blood Edema Fundus Height Fundus Units Glucose Ketones Leukocytes Nitrite Labor Signs Protein Cervic Dilation Cervic Effacement Cervic Station none neg Type Weight in lbs Pre/Post Dialysis Refused Weight 192.864409989771 BP Diastolic BP Location Tested BP Systolic BP Type 84 L arm 130 sitting Fetus Heart Rate Present A 127 Fetus Movement A Yes Comments Patient c/o of [place] . Good movement. No bleeding or LOF. Discussed MIL vs spontaneous labor, would not want to go past due date per patient. Will discuss next week. EFW 44%, has not been checking sugars, encouraged patient to restart. GBS next visit. RTC 1 week. Flowsheet Date 08/31/2024 Copeland Score Blood Edema Fundus Height Fundus Units Glucose Ketones Leukocytes Nitrite Labor Signs Protein Cervic Dilation Cervic Effacement Cervic Station neg none none trace Type Weight in lbs Pre/Post Dialysis Refused Weight 192.277728866991 BP Diastolic BP Location Tested BP Systolic BP Type 84 L arm 136 sitting Fetus Heart Rate Present A 135 Fetus Movement A Yes Comments Doing well, no issues. Good movement. No cramping or bleeding. GBS collected today. Labor precautions reviewed. RTC 1 week. Menstrual History Last Menstrual Date Menses Monthly On Bcp Conception Prior Menses Frequency Hcg Plus Date Menarche Onset Age Genetic Screening And Infection History Question Response Note Mental Retardation/Autism false Patient's Age Will Be 35 Years Or Older At Estim ated Date of Delivery false Thalassemia (Tamazight, Luxembourgish, Mediterranean, Or Background): MCV < 80 false Neural Tube Defect (Meningomyelocele, Spina Bifi da, Or Anencephaly) false Congenital Heart Defect false Down Syndrome false Boris-Sachs (eg, Restoration, Cajun, Lithuanian-Swiss) f alse Edward Disease false Sickle Cell Disease Or Trait () false Hemophilia Or Other Blood Disorders false Muscular Dystrophy false Cystic Fibrosis false Orwell's Chorea false Intellectual Disability/Autism false If Yes, Was Person Tested For Fragile X? false Other Inherited Genetic Or Chromosomal Disorder false Maternal Metabolic Disorder (eg, Type 1 Diabetes , PKU) false Patient Or Baby's Father Had A Child With Defects Not Listed Above false Recurrent Loss, Or A Stillbirth false Medications (including Suppl ements, Vitamins, Herbs, OTC Drugs), Illicit/Recreational Drugs, Alcohol false If Yes, Agent(s) And Strength/Dosage false Any Other Genetic History false Live With Someone With TB Or Exposed To TB false Patient Or Partner Has History Of Genital Herpes false Rash Or Viral Illness Since Last Menstrual Perio d false History Of STD, Gonorrhea, Chlamydia, HPV, Syphi lis false Other Infection History false History of HIV false History of Hepatitis false Prior GBS-infected child false Hemoglobinopathy Or Carrier false Other Structural Defect false Recent Travel History Outside of Country false Delivery Information Delivery Date Delivery Type Labor Anesthesia Weeks Gestation Incision Type Labor Labor Length Hrs Delivered By Post Complications Tubal Sterilization Discharge Date Comments 4 Sponta neous Regional-Ep idural 37.2 false Rosalba Carlson MD Anxiety,F etal clubfoot, Gestation al diabetes mellitus, Gonorrhea ,History of SARS-CoV- 2 Discharge Information Feeding Method Contraceptive Method Maternal HG B and HCT Levels
--- OUTSIDE RECORDS SUMMARY | 2024-10-11 05:28 | XMS_ITS | Continuity of Care Document ---
Author Organization [facility] [place] Address [address] [place] [address] Assessment No assessment recorded. Plan of Treatment Reminders Order Date Submit Date Provider Last Modified By Organization Details Last Modified Time Details Appointments POST 2024 08:30A M ROSALBA CHAVEZ MD Not available Not available Not available Lab None recorded . Referral None recorded . Procedures None recorded . Surgeries None recorded . Imaging None recorded . Medication Orders None recorded . Patient TargetsNo targets recorded. Patient InstructionsNo instructions recorded. Reason for Referral None Reported. Results Created Date Observation Date Name Description Value Unit Range Abnormal Flag Note LastModifiedBy Organization Detail LastModifiedTime 03/15/20 24 03/15/2024 US, obste tric, nucha l trans lucen cy No observ ation record ed. [email or web address] [place] [address], [place], [address], 03/15/2024 13:14:11 03/15/20 24 03/15/2024 US, obste tric, nucha l trans lucen cy No observ ation record ed. [email or web address] [place] [address], [place], [address], 03/15/2024 19:37:42 05/11/2005/11/2024 US, obste tric, 2nd or 3rd trime ster No observ ation record ed. [email or web address] [address], [place], [address], 05/11/2024 13:43:07 05/11/20 24 05/11/2024 US, obste tric, 2nd or 3rd trime ster No observ ation record ed. [email or web address] [address], [place], [address], 05/14/2024 11:07:43 05/11/20 24 05/11/2024 US, obste tric, 2nd or 3rd trime ster No observ ation record ed. [email or web address] [place] [address], [place], [address], 05/14/2024 11:05:54 06/15/20 24 06/15/2024 US, obste tric, follo w-up No observ ation record ed. [facility] [address], [place], [address], 06/15/2024 17:26:20 06/15/20 24 06/15/2024 US, obste tric, follo w-up No observ ation record ed. JANELL [place] [address], [place], [address], 06/20/2024 10:48:00 06/27/20 24 06/27/2024 US, obste tric, follo w-up No observ ation record ed. [email or web address] [facility] [address] [place], [address], 07/16/2024 17:57:03 08/03/20 24 08/03/2024 US, obste tric, follo w-up No observ ation record ed. [facility] [address], [place], [address], 08/03/2024 17:17:41 08/03/20 24 08/03/2024 US, obste tric, follo w-up No observ ation record ed. [email or web address] [address], [place], [address], 08/06/2024 15:39:18 08/24/20 24 08/24/2024 US, obste tric, follo w-up No observ ation record ed. [email or web address] [place] [address], [place], [address], 08/24/2024 13:56:13 08/24/20 24 08/24/2024 US, obste tric, follo w-up No observ ation record ed. JANELL [address], [place], [address], 08/27/2024 10:28:40 Result Notes None recorded. Problems Name Problem SNOMED Code Status Onset Date Resolution Date Notes Provider Name and Address Organization Details Recorded Time Pregnanc y 08872660 Completed 202309/13/2024 Harjeet puga, [facility] 4 16:27:58 Anxiety 15388858 Completed Untreate d, possible panic attacks Nilton Rodríguez MD [address], [place], [address], [facility] 4 13:07:27 Gonorrhe a 94711802 Completed treated Nilton Rodríguez MD [address], [place], [address], [facility] 4 13:07:27 clubfoot 0465363979 9101 Completed 2023 [facility] - [facility] @ 1:45 Level II & OV Eun puga, [facility] 4 14:54:27 History of SARS-CoV -2 9117221032 33452821 Active 2023 ROSALBA CHAVEZ MD [address], [place], [address], [facility] 4 11:18:44 History of SARS-CoV -2 4827663892 96356314 Completed 2023 ROSALBA CHAVEZ MD [address], [place], [address], [facility] 4 11:18:44 Gestatio nal diabetes mellitus 52094510 Completed serial growth , checking bs TINA Fishman null, [facility] 4 17:55:50 Gestatio nal diabetes mellitus 42061167 Active serial growth , checking bs QID Anu Fishman null, [facility] 4 17:55:50 Problem Notes None recorded. Medical Equipment None Reported. [...] Prescribe d Elsewhere : No Locati on: [facility] Mo keeley By: [email or web address] En counter DateTime: 9 07:41:11 PM Not Available Not Available Not Available Vitals Date Recorded Body height Body mass index (BMI) Body weight Systolic blood pressure Diastolic blood pressure Provider Name and Address Organization Details Last Updated DateTime 08/24/2024 165.1 cm 32 kg/m2 74949.74 g 130 mm[Hg] 84 mm[Hg] Jenny Mccarty [facility] 4 12:36:29 Social History Question Answer Notes LastModified by Organizat ion Details LastModified Time What Is Your Level Of Alcohol Consumption? Occasional [email or web address] Information not available 02/16/2024 How Many Years Have You Consumed Alcohol? 5 [email or web address] Information not available 02/16/2024 Are You Blind Or Do You Have Difficulty Seeing? No [email or web address] Information not available 02/16/2024 What Is Your Level Of Caffeine Consumption? Heavy [email or web address] Information not available 02/16/2024 How Much Tobacco Do You Chew? None [email or web address] Information not available 02/16/2024 In The 14 Days Before Symptom Onset, Have You Had Close Contact With A Laboratory-confir med COVID-19 While That Case Was Ill? No [email or web address] Information not available 02/16/2024 In The 14 Days Before Symptom Onset, Have You Had Close Contact With A Person Who Is Under Investigation For COVID-19 While That Person Was Ill? No [email or web address] Information not available 02/16/2024 Have You Been To An Area Known To Be High Risk For COVID-19? No [email or web address] Information not available 02/16/2024 Are You Currently Employed? Yes Information not available 03/15/2024 Are You Deaf Or Do You Have Serious Difficulty Hearing? No [email or web address] Information not available 02/16/2024 What Type Of Diet Are You Following? REGULAR [email or web address] Information not available 02/16/2024 What Is The Highest Grade Or Level Of School You Have Completed Or The Highest Degree You Have Received? UL40375-3 [email or web address] Information not available 02/16/2024 What Is Your Occupation? [employer] [email or web address] Information not available 02/16/2024 Are There Any Guns Present In Your Home? No [email or web address] Information not available 02/16/2024 Do You Use Protection During Sex? No [email or web address] Information not available 02/16/2024 Do You Use Your Seat Belt Or Car Seat Routinely? Yes [email or web address] Information not available 02/16/2024 Are You Sexually Active? Yes [email or web address] Information not available 03/15/2024 Do You Have Smoke And Carbon Monoxide Detectors In Your Home? Yes Information not available 02/16/2024 How Much Tobacco Do You Smoke? No [email or web address] Information not available 02/16/2024 Do You Feel Stressed (tense, Restless, Nervous, Or Anxious, Or Unable To Sleep At Night)? [id number] [email or web address] Information not available 02/16/2024 Do You Use Any Illicit Or Recreational Drugs? Yes [email or web address] Information not available 02/16/2024 Do You Use Sunscreen Routinely? No Information not available 02/16/2024 Have You Used IV Drugs? No Information not available 02/16/2024 Sex: Unknown Functional Status Question Answer Note LastModified by Organizat ion Details LastModified Time Do you have difficulty walking or climbing stairs? No [email or web address] Information not available 03/15/2024 Are you able to walk? YESWOREST [email or web address] Information not available 02/16/2024 Are you able to care for yourself? Yes Information not available 03/15/2024 Do you have difficulty dressing or bathing? No [email or web address] Information not available 03/15/2024 What is your exercise level? Occasional [email or web address] Information not available 02/16/2024 Mental Status None [...] Diagnosis/Indication Diagnosis SNOMED-CT Code Diagnosis ICD10 Code [id number] [facility] [address],[place] [address] 08/03/2024 10:22:11 08/03/2024 11:26:00 Gestational diabetes mellitus 89747615 O24.410 Z86.16 Z3A.32 [id number] ROSALBA CHAVEZ MD [place] [address],[place] [address] 08/07/2024 14:44:04 08/07/2024 16:05:05 Gestational diabetes mellitus 13122267 O24.410 Gestation period, 33 weeks 81534723 Z3A.33 [id number] Crissy [facility] [address],[place] [address] 08/24/2024 11:27:16 08/24/2024 12:10:58 Gestational diabetes mellitus 54416780 O24.410 Z86.16 Z3A.35 [id number] ROSALBA CHAVEZ MD [place] [address],[place] [address] 08/24/2024 11:28:00 08/24/2024 12:53:50 Gestational diabetes mellitus 70005424 O24.410 clubfoot 900342306 1 9101 O35.HXX9 Gestation period, 35 weeks 69433716 Z3A.35 Health Concerns Section Related Observation LastModified by Organization Detai ls LastModified Time None Recorded Concern Status LastModified by Organization Details LastModified Time None Recorded Payers Encounter Date Sequence Insurance Name Policy Number Policy Cast Covered Member ID Cast Member ID Guarantor Name 08/24/2024 1 [employer] [id number] Veena Montalvo [id number] Veena Montalvo OBGyn Episode Ob Episode Information Episode Created Date Number of Fetuses Patient Bloodtype Patient rh Status Prepregnancy Weight lbs Domestic Partner Domestic Partner Phone Father 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 Status 03/15/20 24 1 AB Positive 188 CLOSED Fetus Data First Name Last Name Admitted to NICU Weight (g) Sex Living Outcome Pediatric Complications Fetus ID Race Codes Race Delivery Type 3090.09 53 M true Full Term [email or web address] [id number] Vaginal Delivery Problems Problem Notes failed 1 hr - 3hr gtt 07/13Bo y,MFM Appt: 06/27 145p u/s and ov - no club foot noted on ultrasound.bg,rn Problem Name Start Date End Date Resolution Snomed Code Not e Gestational diabetes mellitus 88206337 serial joe wth , checking bs QID Anxiety 21370307 Untreated, possible panic attacks clubfoot 06/15/2024 77112028146234 possibly - to see [facility] 06/27 @ 1:45 Level II & OV History of SARS-CoV-2 07/06/2024 498223749755535643 Gonorrhea [id number] treated José Calculation JOSÉ Calculation Method Initial [...] Weight in lbs Pre/Post Dialysis Refused Weight 188.448486310458 BP Diastolic BP Location Tested BP Systolic BP Type 75 L arm 121 sitting Fetus Heart Rate Present A 153 Fetus Movement Comments This patient is a 23-year-ol d 3 para 986876 weeks' gestation who presents for initial care. [...] Weight in lbs Pre/Post Dialysis Refused Weight 190.877512682832 BP Diastolic BP Location Tested BP Systolic BP Type 82 L arm 127 sitting Fetus Heart Rate Present A 145 Fetus Movement A No Comments reports recent chest pain, l ikely she related to anxiety attack, she was laying down. With the tightness and shortness in her sternum help high. [place] like there was a bubble there was [...] Weight in lbs Pre/Post Dialysis Refused Weight 190.918257154173 BP Diastolic BP Location Tested BP Systolic [...] Type Weight in lbs Pre/Post Dialysis Refused 195.724006554919 BP Diastolic BP Location Tested BP Systolic BP Type 82 L arm 138 sitting Fetus Heart Rate Present A 141 Fetus Movement A Yes Comments no complaints, no problems, routine care, no contractions, no vaginal bleeding, no loss of fluid, no cramping Discussed possible clubfoot -to see [facility] Flowsheet Date 06/20/2024 Copeland Score Blood [...] Weight in lbs Pre/Post Dialysis Refused Weight 193.790646751078 BP Diastolic BP Location Tested BP Systolic [...] Type Weight in lbs Pre/Post Dialysis Refused 192.832609204556 BP Diastolic BP Location Tested BP Systolic [...] Weight in lbs Pre/Post Dialysis Refused Weight 195.524717653972 BP Diastolic BP Location Tested BP Systolic [...] Weight in lbs Pre/Post Dialysis Refused Weight 192.071451979911 BP Diastolic BP Location Tested BP Systolic BP Type 84 L arm 130 sitting Fetus Heart Rate Present A 127 Fetus Movement A Yes Comments Patient c/o of [place] Callahan . Good movement. No bleeding or [...] Weight in lbs Pre/Post Dialysis Refused Weight 192.326354443145 BP Diastolic BP Location Tested BP Systolic [...] Estim ated Date of Delivery false Thalassemia (Norwegian, Togolese, Mediterranean, Or Background): MCV < 80 false Neural Tube Defect (Meningomyelocele, Spina Bifi da, Or Anencephaly) false Congenital Heart Defect false Down Syndrome false Boris-Sachs (eg, Zoroastrianism, Cajun, Pakistani-Bahraini) f alse Edward Disease false Sickle Cell Disease Or Trait () false Hemophilia Or Other Blood Disorders false Muscular Dystrophy false Cystic Fibrosis false Roebling's Chorea false Intellectual Disability/Autism false If Yes, [...] Sponta neous Regional-Ep idural 37.2 false Rosalba Chavez MD Anxiety,F etal clubfoot, Gestation al diabetes mellitus, Gonorrhea ,History of SARS-CoV- 2 Discharge Information Feeding Method Contraceptive Method Maternal HG B and HCT Levels
--- OUTSIDE RECORDS SUMMARY | 2024-10-11 05:28 | XMS_ITS | Continuity of Care Document ---
Author Organization [facility] [place] Address [address] [place] [address] [place] [address] Assessment No assessment recorded. Plan of Treatment Reminders Order Date Submit Date Provider Last Modified By Organization Details Last Modified Time Details Appointments POST 2024 08:30A M ROSALBA CARLSON MD Not available Not available Not available Lab None recorded . Referral None recorded . Procedures None recorded . Surgeries None recorded . Imaging US, obstetri c, follow-u p 2023 024 [address], [address], [place], [address], 08/24/2024 12:55:57 Medication Orders None recorded . Patient TargetsNo targets recorded. Patient InstructionsNo instructions recorded. Reason for Referral None Reported. Results Created Date Observation Date Name Description Value Unit Range Abnormal Flag Note LastModifiedBy Organization Detail LastModifiedTime 03/15/2003/15/2024 US, obste tric, nucha l trans lucen cy No observ ation record ed. [email or web address] [facility] [address], [place], [address], 03/15/2024 13:14:11 03/15/20 24 03/15/2024 US, obste tric, nucha l trans lucen cy No observ ation record ed. [email or web address] [address], [place], [address], 03/15/2024 19:37:42 05/11/20 24 05/11/2024 US, obste tric, 2nd or 3rd trime ster No observ ation record ed. [facility] [address], [place], [address], 05/11/2024 13:43:07 05/11/20 24 05/11/2024 US, obste tric, 2nd or 3rd trime ster No observ ation record ed. [email or web address] [address], [place], [address], 05/14/2024 11:07:43 05/11/20 24 05/11/2024 US, obste tric, 2nd or 3rd trime ster No observ ation record ed. [email or web address] [address], [place], [address], 05/14/2024 11:05:54 06/15/20 24 06/15/2024 US, obste tric, follo w-up No observ ation record ed. [facility] [address], [place], [address], 06/15/2024 17:26:20 06/15/20 24 06/15/2024 US, obste tric, follo w-up No observ ation record ed. JANELL [address], [place], [address], 06/20/2024 10:48:00 06/27/20 24 06/27/2024 US, obste tric, follo w-up No observ ation record ed. [email or web address] [facility] [address] [place], [address], 07/16/2024 17:57:03 08/03/20 24 08/03/2024 US, obste tric, follo w-up No observ ation record ed. [facility] [address], [place], [address], 08/03/2024 17:17:41 08/03/2008/03/2024 US, obste tric, follo w-up No observ ation record ed. [email or web address] [address], [place], [address], 08/06/2024 15:39:18 08/24/20 24 08/24/2024 US, obste tric, follo w-up No observ ation record ed. [facility] [address], [place], [address], 08/24/2024 13:56:13 08/24/2008/24/2024 US, obste tric, follo w-up No observ ation record ed. JANELL [address], [place], [address], 08/27/2024 10:28:40 Result Notes None recorded. Problems Name Problem SNOMED Code Status Onset Date Resolution Date Notes Provider Name and Address Organization Details Recorded Time Pregnanc y 81176623 Completed 202309/13/2024 Harjeet puga [facility] 4 16:27:58 Anxiety 99870781 Completed Untreate d, possible panic attacks Nilton Rodríguez MD [address], [place], [address], [facility] 4 13:07:27 Gonorrhe a 07323417 Completed treated Nilton Rodríguez MD [address], [place], [address], [facility] 4 13:07:27 clubfoot 7370000477 9101 Completed 2023 [facility] - [email or web address] 06/27 @ 1:45 Level II & OV Eun puga [facility] 4 14:54:27 History of SARS-CoV -2 8116626976 55970447 Active 2023 ROSALBA CARLSON MD [address], [place], [address], [facility] 4 11:18:44 History of SARS-CoV -2 5872363590 65813199 Completed 2023 ROSALBA CARLSON MD [address], [place], [address], [facility] 4 11:18:44 Gestatio nal diabetes mellitus 92660485 Completed serial growth , checking bs QILionel Fishman null, [facility] 4 17:55:50 Gestatio nal diabetes mellitus 41768354 Active serial growth , checking bs QID Anu Fishman null, [facility] 17:55:50 Problem Notes None recorded. Procedures Surgical History None recorded. Imaging Results Imaging Date Name Status LastModified by Organiz ation Details LastModified Time 08/24/2024 US, obstetric, follow-up completed [facility] [address], [place], [address], 08/24/2024 13:56:13 08/24/2024 US, obstetric, follow-up completed [place] [address] [facility], [place], [address], 08/27/2024 10:28:40 Procedure Notes None recorded. Medical [...] Prescribe d Elsewhere : No Locati on: [facility] Mo dify By: [email or web address] En counter DateTime: 07:41:11 PM Not Available Not Available Not Available Vitals Date Recorded Body height Body mass index (BMI) Body weight Systolic blood pressure Diastolic blood pressure Provider Name and Address Organization Details Last Updated DateTime 08/24/2024 165.1 cm 32 kg/m2 03053.74 g 130 mm[Hg] 84 mm[Hg] Jenny Mccarty [place] - [facility] 12:36:29 Social History Question Answer Notes LastModified by Organizat ion Details LastModified Time What Is Your Level Of Alcohol Consumption? Occasional [email or web address] Information not available 02/16/2024 How Many Years Have You Consumed Alcohol? 5 [email or web address] Information not available 02/16/2024 Are You Blind Or Do You Have Difficulty Seeing? No [email or web address] Information not available 02/16/2024 What Is Your Level Of Caffeine Consumption? Heavy Information not available 02/16/2024 How Much Tobacco Do You Chew? None [email or web address] Information not available 02/16/2024 In The 14 Days Before Symptom Onset, Have You Had Close Contact With A Laboratory-confir med COVID-19 While That Case Was Ill? No [email or web address] Information not available 02/16/2024 In The 14 Days Before Symptom Onset, Have You Had Close Contact With A Person Who Is Under Investigation For COVID-19 While That Person Was Ill? No [email or web address] Information not available 02/16/2024 Have You Been To An Area Known To Be High Risk For COVID-19? No [email or web address] Information not available 02/16/2024 Are You Currently Employed? Yes [email or web address] Information not available 03/15/2024 Are You Deaf Or Do You Have Serious Difficulty Hearing? No [email or web address] Information not available 02/16/2024 What Type Of Diet Are You Following? REGULAR [email or web address] Information not available 02/16/2024 What Is The Highest Grade Or Level Of School You Have Completed Or The Highest Degree You Have Received? [id number] Information not available 02/16/2024 What Is Your Occupation? [employer] [email or web address] Information not available 02/16/2024 Are There Any Guns Present In Your Home? No [email or web address] Information not available 02/16/2024 Do You Use Protection During Sex? No [email or web address] Information not available 02/16/2024 Do You Use Your Seat Belt Or Car Seat Routinely? Yes [email or web address] Information not available 02/16/2024 Are You Sexually Active? Yes Information not available 03/15/2024 Do You Have Smoke And Carbon Monoxide Detectors In Your Home? Yes [email or web address] Information not available 02/16/2024 How Much Tobacco Do You Smoke? No [email or web address] Information not available 02/16/2024 Do You Feel Stressed (tense, Restless, Nervous, Or Anxious, Or Unable To Sleep At Night)? QU0292-4 Information not available 02/16/2024 Do You Use Any Illicit Or Recreational Drugs? Yes [email or web address] Information not available 02/16/2024 Do You Use Sunscreen Routinely? No Information not available 02/16/2024 Have You Used IV Drugs? No [email or web address] Information not available 02/16/2024 Sex: Unknown Functional Status Question Answer Note LastModified by Organizat ion Details LastModified Time Do you have difficulty walking or climbing stairs? No [email or web address] Information not available 03/15/2024 Are you able to walk? [email or web address] Information not available 02/16/2024 Are you able to care for yourself? Yes Information not available 03/15/2024 Do you have difficulty dressing or bathing? No [email or web address] Information not available 03/15/2024 What is your exercise level? Occasional [email or web address] Information not available 02/16/2024 Mental Status None [...] Diagnosis/Indication Diagnosis SNOMED-CT Code Diagnosis ICD10 Code [id number] [facility] [place] [address] [address] 08/03/2024 10:22:11 08/03/2024 11:26:00 Gestational diabetes mellitus 37614351 O24.410 Z86.16 Z3A.32 [id number] ROSALBA CARLSON MD [facility] [address] [place] [address] 08/07/2024 14:44:04 08/07/2024 16:05:05 Gestational diabetes mellitus 91964854 O24.410 Gestation period, 33 weeks 73254873 Z3A.33 [id number] [facility] [place] [address] [place] [address] 08/24/2024 11:27:16 08/24/2024 12:10:58 Gestational diabetes mellitus 62705722 O24.410 Z86.16 Z3A.35 [id number] ROSALBA CARLSON MD [facility] [address] [place] [address] 08/24/2024 11:28:00 08/24/2024 12:53:50 Gestational diabetes mellitus 77604305 O24.410 clubfoot 485172329 1 9101 O35.HXX9 Gestation period, 35 weeks 37489370 Z3A.35 Health Concerns Section Related Observation LastModified by Organization Detai ls LastModified Time None Recorded Concern Status LastModified by Organization Details LastModified Time None Recorded Payers Encounter Date Sequence Insurance Name Policy Number Policy Cast Covered Member ID Cast Member ID Guarantor Name 08/24/2024 1 [employer] [id number] Veena Montalvo [id number] Veena Montalvo OBGyn Episode Ob Episode Information Episode Created Date Number of Fetuses Patient Bloodtype Patient rh Status Prepregnancy Weight lbs Domestic Partner Domestic Partner Phone Father Name Supervisor [employer] Status 03/15/20 24 1 AB Positive 188 CLOSED Fetus Data First Name Last Name Admitted to NICU Weight (g) Sex Living Outcome Pediatric Complications Fetus ID Race Codes Race Delivery Type 3090.09 55 M true Full Term [email or web address] [id number] Vaginal Delivery Problems Problem Notes failed 1 hr - 3hr gtt 07/13Bo y,MFM Appt: 06/27 145p u/s and ov - no club foot noted on ultrasound.bg,rn Problem Name Start Date End Date Resolution Snomed Code Not e Gestational diabetes mellitus 52651652 serial joe wth , checking bs QID Anxiety 40790058 Untreated, possible panic attacks clubfoot 06/15/2024 [id number] possibly - to see [facility] 06/27 @ 1:45 Level II & OV History of SARS-CoV-2 07/06/2024 344783251622720173 Gonorrhea 60893497 treated José Calculation JOSÉ Calculation Method Initial [...] Gestation 0 [email or web address] 03/15/2024 09/22/20 24 0 Pre-kailyn Flowsheet Flowsheet Date 03/15/2024 Copeland Score Blood Edema Fundus Height Fundus Units Glucose Ketones Leukocytes Nitrite Labor Signs Protein Cervic Dilation Cervic Effacement Cervic Station Type Weight in lbs Pre/Post Dialysis Refused Weight 188.120690844656 BP Diastolic BP Location Tested BP Systolic BP Type 75 L arm 121 sitting Fetus Heart Rate Present A 153 Fetus Movement Comments This patient is a 23-year-ol d 3 para 508319 weeks' gestation who presents for initial care. [...] Weight in lbs Pre/Post Dialysis Refused Weight 190.061200310009 BP Diastolic BP Location Tested BP Systolic BP Type 82 L arm 127 sitting Fetus Heart Rate Present A 145 Fetus Movement A No Comments reports recent chest pain, l ikely she related to anxiety attack, she was laying down. With the tightness and shortness in her sternum help high. [place] like there was a bubble there was [...] Weight in lbs Pre/Post Dialysis Refused Weight 190.297493621235 BP Diastolic BP Location Tested BP Systolic [...] Type Weight in lbs Pre/Post Dialysis Refused 195.271579328696 BP Diastolic BP Location Tested BP Systolic BP Type 82 L arm 138 sitting Fetus Heart Rate Present A 141 Fetus Movement A Yes Comments no complaints, no problems, routine care, no contractions, no vaginal bleeding, no loss of fluid, no cramping Discussed possible clubfoot -to see MFM Flowsheet Date 06/20/2024 Copeland Score Blood Edema [...] Weight in lbs Pre/Post Dialysis Refused Weight 193.260416419372 BP Diastolic BP Location Tested BP Systolic [...] Type Weight in lbs Pre/Post Dialysis Refused 192.114824383960 BP Diastolic BP Location Tested BP Systolic [...] Weight in lbs Pre/Post Dialysis Refused Weight 195.562248970003 BP Diastolic BP Location Tested BP Systolic [...] Weight in lbs Pre/Post Dialysis Refused Weight 192.110906632366 BP Diastolic BP Location Tested BP Systolic BP Type 84 L arm 130 sitting Fetus Heart Rate Present A 127 Fetus Movement A Yes Comments Patient c/o of [place] . Good movement. No bleeding or [...] Weight in lbs Pre/Post Dialysis Refused Weight 192.901943004414 BP Diastolic BP Location Tested BP Systolic [...] Estim ated Date of Delivery false Thalassemia (Kazakh, Iraqi, Mediterranean, Or Background): MCV < 80 false Neural Tube Defect (Meningomyelocele, Spina Bifi da, Or Anencephaly) false Congenital Heart Defect false Down Syndrome false Boris-Sachs (eg, Congregational, Cajun, Botswanan-Kenyan) f alse Edward Disease false Sickle Cell Disease Or Trait () false Hemophilia Or Other Blood Disorders false Muscular Dystrophy false Cystic Fibrosis false Taylor's Chorea false Intellectual Disability/Autism false If Yes, [...]
--- OUTSIDE RECORDS SUMMARY | 2024-10-11 05:28 | XMS_ITS | Continuity of Care Document ---
Author Organization [facility] [place] Address [address] [place] [address] Assessment No assessment recorded. Plan of Treatment [...] cy No observ ation record ed. [email or web address] [place] [address], [place], [address], 03/15/2024 13:14:11 03/15/20 24 03/15/2024 US, obste tric, nucha l trans lucen cy No observ ation record ed. [email or web address] [address], [place], [address], 03/15/2024 19:37:42 05/11/2005/11/2024 US, obste tric, 2nd or 3rd trime ster No observ [facility]ion [facility] ed[facility] [address], [place], [address], 05/11/2024 13:43:07 05/11/20 24 05/11/2024 US, obste tric, 2nd or 3rd trime ster No observ ation record ed. [email or web address] [address], [place], [address], 05/14/2024 11:07:43 05/11/20 24 05/11/2024 US, obste tric, 2nd or 3rd trime ster No observ ation record ed. [email or web address] [address], [place], [address], 05/14/2024 11:05:54 06/15/20 24 06/15/2024 US, obste tric, follo w-up No observ ation record ed. [facility] [address], [place], [address], 06/15/2024 17:26:20 06/15/20 24 06/15/2024 US, obste tric, follo w-up No observ ation record ed. JANELL [address], [place], [address], 06/20/2024 10:48:00 06/27/20 24 06/27/2024 US, obste tric, follo w-up No observ ation record ed. [email or web address] [facility] [address] [place], [address], 07/16/2024 17:57:03 08/03/20 24 08/03/2024 US, obste tric, follo w-up No observ ation record ed. [facility] [address], [place], [address], 08/03/2024 17:17:41 08/03/20 24 08/03/2024 US, obste tric, follo w-up No observ ation record ed. [email or web address] [address], [place], [address], 08/06/2024 15:39:18 08/24/20 24 08/24/2024 US, obste tric, follo w-up No observ ation record ed. [email or web address] [place] [address], [place], [address], 08/24/2024 13:56:13 08/24/20 24 08/24/2024 US, obste tric, follo w-up No observ ation record ed. JANELL [address], [place], [address], 08/27/2024 10:28:40 Result Notes None recorded. Problems Name Problem SNOMED Code Status Onset Date Resolution Date Notes Provider Name and Address Organization Details Recorded Time Pregnanc y 39718281 Completed 202309/13/2024 Harjeet puga, [facility] 4 16:27:58 Anxiety 46044372 Completed Untreate d, possible panic attacks Nilton Rodríguez MD [address], [place], [address], [facility] 4 13:07:27 Gonorrhe a 82396857 Completed treated Nilton Rodríguez MD [address], [place], [address], [facility] 4 13:07:27 clubfoot 3355820657 9101 Completed 2023 [facility] - [facility]/27 @ 1:45 Level II & OV Eun puga, [facility] 4 14:54:27 History of SARS-CoV -2 5433732293 41684389 Active 2023 ROSALBA CHAVEZ MD [address], [place], [address], [facility] 4 11:18:44 History of SARS-CoV -2 9792904560 49196431 Completed 2023 ROSALBA CHAVEZ MD [address], [place], [address], [facility] 4 11:18:44 Gestatio nal diabetes mellitus 70926805 Completed serial growth , checking bs TINA Fishman null, [facility] 4 17:55:50 Gestatio nal diabetes mellitus 41358074 Active serial growth , checking bs QID Anu Fishman null, [facility] 4 17:55:50 Problem Notes None [...] Prescribe d Elsewhere : No Locati on: [facility] keeley By: [email or web address] En counter DateTime: 9 07:41:11 PM Not Available Not Available Not Available Vitals Date Recorded Body height Body mass index (BMI) Body weight Systolic blood pressure Diastolic blood pressure Provider Name and Address Organization Details Last Updated DateTime 08/31/2024 165.1 cm 32 kg/m2 58871.74 g 136 mm[Hg] 84 mm[Hg] Jenny Mccarty [facility] 4 16:14:53 Social History Question Answer Notes LastModified by Organizat ion Details LastModified Time What Is Your Level Of Alcohol Consumption? Occasional [email or web address] Information not available 02/16/2024 How Many Years Have You Consumed Alcohol? 5 [email or web address] Information not available 02/16/2024 Are You Blind Or Do You Have Difficulty Seeing? No [email or web address] Information not available 02/16/2024 What Is Your Level Of Caffeine Consumption? Heavy [email or web address] Information not available 02/16/2024 How Much Tobacco Do You Chew? None [email or web address] Information not available 02/16/2024 In The 14 Days Before Symptom Onset, Have You Had Close Contact With A Laboratory-confir med COVID-19 While That Case Was Ill? No [email or web address] Information not available 02/16/2024 In The 14 Days Before Symptom Onset, Have You Had Close Contact With A Person Who Is Under Investigation For COVID-19 While That Person Was Ill? No Information not available 02/16/2024 Have You Been To An Area Known To Be High Risk For COVID-19? No [email or web address] Information not available 02/16/2024 Are You Currently Employed? Yes Information not available 03/15/2024 Are You Deaf Or Do You Have Serious Difficulty Hearing? No [email or web address] Information not available 02/16/2024 What Type Of Diet Are You Following? REGULAR [email or web address] Information not available 02/16/2024 What Is The Highest Grade Or Level Of School You Have Completed Or The Highest Degree You Have Received? [id number] [email or web address] Information not available 02/16/2024 What Is Your Occupation? [employer] [place] [employer] [email or web address] Information not available 02/16/2024 Are There Any Guns Present In Your Home? No [email or web address] Information not available 02/16/2024 Do You Use Protection During Sex? No Information not available 02/16/2024 Do You Use Your Seat Belt Or Car Seat Routinely? Yes Information not available 02/16/2024 Are You Sexually Active? Yes [email or web address] Information not available 03/15/2024 Do You Have Smoke And Carbon Monoxide Detectors In Your Home? Yes [email or web address] Information not available 02/16/2024 How Much Tobacco Do You Smoke? No [email or web address] Information not available 02/16/2024 Do You Feel Stressed (tense, Restless, Nervous, Or Anxious, Or Unable To Sleep At Night)? [id number] Information not available 02/16/2024 Do You Use Any Illicit Or Recreational Drugs? Yes [email or web address] Information not available 02/16/2024 Do You Use Sunscreen Routinely? No [email or web address] Information not available 02/16/2024 Have You Used IV Drugs? No [email or web address] Information not available 02/16/2024 Sex: Unknown Functional Status Question Answer Note LastModified by Organizat ion Details LastModified Time Do you have difficulty walking or climbing stairs? No [email or web address] Information not available 03/15/2024 Are you able to walk? [email or web address] Information not available 02/16/2024 Are you able to care for yourself? Yes [email or web address] Information not available 03/15/2024 Do you have difficulty dressing or bathing? No [email or web address] Information not available 03/15/2024 What is your exercise level? Occasional [email or web address] Information not available 02/16/2024 Mental Status None recorded. Family History Nothing Reported. Medical History Condition Response Allergies (Food, seasonal, environmental ) N Other N Drug/Latex Allergies/Reactions N Breast Cancer N Blood Transfusion N Dermatologic Disorders N Lung Disease N [...] Diagnosis/Indication Diagnosis SNOMED-CT Code Diagnosis ICD10 Code 215033 [facility] [address],[place] [address] 08/03/2024 10:22:11 08/03/2024 11:26:00 Gestational diabetes mellitus 26062660 O24.410 Z86.16 Z3A.32 [id number] ROSALBA CHAVEZ MD [place] [address],[place] [address] 08/07/2024 14:44:04 08/07/2024 16:05:05 Gestational diabetes mellitus 84371587 O24.410 Gestation period, 33 weeks 97616450 Z3A.33 [id number] [facility] [address],[place] [address] 08/24/2024 11:27:16 08/24/2024 12:10:58 Gestational diabetes mellitus 41929926 O24.410 Z86.16 Z3A.35 [id number] ROSALBA CHAVEZ MD [place] [address],[place] [address] 08/24/2024 11:28:00 08/24/2024 12:53:50 Gestational diabetes mellitus 51806291 O24.410 clubfoot 885046116 1 9101 O35.HXX9 Gestation period, 35 weeks 79437740 Z3A.35 [id number] ROSALBA CHAVEZ MD [place] [address],[place] [address] 08/31/2024 15:57:31 09/04/2024 02:40:03 Gestational diabetes mellitus 46518921 O24.410 Gestation period, 37 weeks 12046377 Z3A.37 Health Concerns Section Related Observation LastModified by Organization Detai ls LastModified Time None Recorded Concern Status LastModified by Organization Details LastModified Time None Recorded Payers Encounter Date Sequence Insurance Name Policy Number Policy Cast Covered Member ID Cast Member ID Guarantor Name 08/31/2024 1 [employer] [id number] Veena Montalvo [id number] Veena Montalvo OBGyn Episode Ob Episode Information Episode Created Date Number of Fetuses Patient Bloodtype Patient rh Status Prepregnancy Weight lbs Domestic Partner Domestic Partner Phone Father Name Journeyman Millwright Status 03/15/20 24 1 AB Positive 188 CLOSED Fetus Data First Name Last Name Admitted to NICU Weight (g) Sex Living Outcome Pediatric Complications Fetus ID Race Codes Race Delivery Type 3090.09 53 M true Full Term [email or web address] [id number] Vaginal Delivery Problems Problem Notes failed 1 hr - 3hr gtt 07/13Bo y,MFM Appt: 06/27 145p u/s and ov - no club foot noted on ultrasound.bg,rn Problem Name Start Date End Date Resolution Snomed Code Not e Gestational diabetes mellitus 74512735 serial joe wth , checking bs QID Anxiety 93331680 Untreated, possible panic attacks clubfoot 06/15/2024 19375983367698 possibly - to see mfm - schd 06/27 @ 1:45 Level II & OV History of SARS-CoV-2 07/06/2024 762035250389523390 Gonorrhea 00252544 treated José Calculation JOSÉ Calculation Method Initial [...] Weight in lbs Pre/Post Dialysis Refused Weight 188.684324799982 BP Diastolic BP Location Tested BP Systolic BP Type 75 L arm 121 sitting Fetus Heart Rate Present A 153 Fetus Movement Comments This patient is a 23-year-ol d 3 para 526327 weeks' gestation who presents for initial care. [...] Weight in lbs Pre/Post Dialysis Refused Weight 190.203900342985 BP Diastolic BP Location Tested BP Systolic BP Type 82 L arm 127 sitting Fetus Heart Rate Present A 145 Fetus Movement A No Comments reports recent chest pain, l kassandra she related to anxiety attack, she was laying down. With the tightness and shortness in her sternum help high. [place] like there was a bubble there was [...] Weight in lbs Pre/Post Dialysis Refused Weight 190.195067109929 BP Diastolic BP Location Tested BP Systolic [...] Type Weight in lbs Pre/Post Dialysis Refused 195.630074540763 BP Diastolic BP Location Tested BP Systolic BP Type 82 L arm 138 sitting Fetus Heart Rate Present A 141 Fetus Movement A Yes Comments no complaints, no problems, routine care, no contractions, no vaginal bleeding, no loss of fluid, no cramping Discussed possible clubfoot -to see [facility] Flowsheet Date 06/20/2024 [place] Score Blood [...] Weight in lbs Pre/Post Dialysis Refused Weight 193.772778363915 BP Diastolic BP Location Tested BP Systolic [...] Type Weight in lbs Pre/Post Dialysis Refused 192.039765871326 BP Diastolic BP Location Tested BP Systolic [...] Weight in lbs Pre/Post Dialysis Refused Weight 195.575899074984 BP Diastolic BP Location Tested BP Systolic [...] Weight in lbs Pre/Post Dialysis Refused Weight 192.795984653552 BP Diastolic BP Location Tested BP Systolic [...] Weight in lbs Pre/Post Dialysis Refused Weight 192.413461469225 BP Diastolic BP Location Tested BP Systolic [...] Estim ated Date of Delivery false Thalassemia ([place], Czech, Mediterranean, Or Background): MCV < 80 false Neural Tube Defect (Meningomyelocele, Spina Bifi da, Or Anencephaly) false Congenital Heart Defect false Down Syndrome false Boris-Sachs (eg, Advent, Cajun, [place]ian[place]) f alse Edward Disease false Sickle Cell [...]
--- OUTSIDE RECORDS SUMMARY | 2024-10-11 05:29 | XMS_ITS | Encounter Summary ---
Author Organization [facility] Address [address] [place] [address] Care Team Providers Care Floor Layer Tile Name Role Phone Unavailable Primary Care Provider Unavailabl e Reason for Referral * (Routine) - Open Specialty Diagnoses / Procedures Referred By Contac t Referred To Contact Diagnoses Club foot of fetus affecting antepartum care of mother, single or unspecified fetus (HCC) Encounter for anatomic survey (HCC) Procedures SONOGRAM - COMPLETE Carlyle Rodríguez MD [address] [place] [address] Referral ID Status Reason Start Date Expiration Date Visits Re quested Visits Authorized [id number] Open 06/18/2024 06/18/2025 1 1 * Consultation (Routine) - Open Specialty Diagnoses / Procedures Referred By Contac t Referred To Contact Diagnoses Club foot of fetus affecting antepartum care of mother, single or unspecified fetus (HCC) Encounter for anatomic survey (HCC) Carlyle Rodríguez MD [address] [place] [address] Referral ID Status Reason Start Date Expiration Date V isits Requested Visits Authorized [id number] Open Specialty Services Required 06/18/2024 06/18/2025 3 3 Reason for Visit * Reason Comments Ultrasound Maternal Medicine Consultation Encounter Details Date Type Department Care Team (Latest Contact Info) Description 06/27/2024 1:39 PM CDT - 06/27/2024 11:59 PM CDT Hospital Encounter [facility] Maternal & Care [address] [phone] Escobar Diaz MD [address] [phone] Discharge Disposition: Home or Self Care Social History Tobacco Use Types Packs/Day Years Used Date Smoking Tobacco: Former Cigarettes Smokeless Tobacco: Never Tobacco Cessation:Counseling Given: Not Answered Alcohol Use Standard Drinks/Week Comments Not Currently 0 (1 standard drink = 0.6 oz pur e alcohol) Estimated Date of Delivery Comme nts Yes 09/22/2024 Based on Ultraso und Sex and Gender Information Value Date Recorded Sex Assigned at Not on file Gender Identity Not on file Sexual Orientation Not on file documented as of this encounter Last Filed Vital Signs Vital Sign Reading Time Taken Comments Blood Pressure 116/62 06/27/2024 2:37 PM CDT Pulse 92 06/27/2024 2:37 PM CDT Temperature - - Respiratory Rate - - Oxygen Saturation - - Inhaled Oxygen Concentration - - Weight 86.6 kg (191 lb) 06/27/2024 2:37 PM CDT Height 167.6 cm (5' 6 ) 06/27/2024 2:37 PM CDT Body Mass Index 30.83 06/27/2024 2:37 PM CDT documented in this encounter Progress Notes * Janet Xiao RN - 06/27/2024 2:35 PM CDT Patient here w/ sig. Other, Alfredo for provider visit and ultrasound . Denies contractions, denies bleeding, leakage of fluid, and reports good movement. RN reviewed preeclampsia precautions. Patient reports headaches once a week or so. If more severe patient states she takes tylenol. Cats in home. Alfredo changes litter box. Patient works FT in [employer] industry and is on her feet a lot. Urine dip today shows +1 protein, negative ketones, glucose and blood. Patient has no concerns today other than ultrasound in regards to club foot. aJnet Xiao RN 06/27/2024 2:41 PM documented in this encounter Consult Notes * Escobar Diaz MD - 06/27/2024 3:11 PM CDT MFM CONSULT * Burger IUP at 27 weeks of gestation by stated EDC * Referred to [facility] for obstetrical U/S & request for consult secondary to: Suspected unilateral clubfoot on prior outside U/S * Today's ultrasound (U/S) findings: Living burger intrauterine fetus growth is in the normal range Amniotic fluid volume appears normal Placenta location appears normal Comprehensive anatomic survey appears normal, but is incomplete There is NO conclusive evidence of clubfoot on today's exam Please see table for suboptimally viewed features PAST MEDICAL & OBSTETRICAL HISTORY * Medications: none * Past Medical History (PMH): No CHTN, no DM, no thyroidopathy, no asthma, no VTE, no SLE Pre- obesity Class I, BMI = 30.0-34.9 * Past Surgical History: none * Past Obstetrical History: G1: SAB early G2: SAB early G3: Current * Family history of anomalies, syndromes or MR: MOB half-brother CP * Social History: former smoker * Physical Examination: BP = 116/62 mmHg, P = 92 bpm, BMI = 30.8 * Laboratory data: cf-DNA non-invasive screen (NIPS) was low-risk for aneuploidy Maternal limited carrier screening (CF, SMA, Hemoglobinopathies) was negative ASSESSMENT Burger IUP at 27 weeks of gestation by stated EDC No conclusive evidence of clubfoot on U/S today COUNSELING & RECOMMENDATIONS (PLEASE SEE FULL CONSULT IN EPIC) * Today on U/S anatomy appears normal & I do not identify a limb abnormality I tried to reassure the patient that clubfoot probably does not exist However, a milder condition such as metatarsus adductus might In the event clubfoot should prove to exist, we discussed some of the general concerns below At present she declines follow-up U/S in attempt to clear the remaining anatomy COMMENTS * Thank you very much for requesting [facility] participation in her obstetrical care * Findings were explained & questions were addressed & precautions were given to patient * U/S does not detect all structural, genetic & functional gmtcsddc-uvwjx-[id number] abnormalities * Telemedicine services were performed for this U/S examination & MFM consultation Patient's identity was confirmed at the [facility] office Appropriateness of the telehealth consult was confirmed Informed consent for telemedicine services was obtained & scanned into EMR Modality was secure interactive audio-video session using [email or web address] Patient site location was [facility] & nurse presenter was Salome Xiao Distant site provider was Escobar Diaz MD & location was home office Others present at the patient site included the patient's spouse Consult = 30 minutes total time, including record review & counseling & coordination of care GENERAL NOTES REGARDING CLINICAL CONDITIONS * Talipes equinovarus, 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 The most common positional deformities of the feet include: Metatarsus adductus Positional calcaneovalgus feet Talipes equinovarus Clubfoot can be classified as idiopathic (congenital), syndromic, or positional: Idiopathic (congenital) clubfoot Affects the bones, muscles, tendons, & blood vessels of one or both feet It is an isolated anomaly in an otherwise healthy Is the most common type of clubfoot Syndromic clubfoot Associated with additional anatomic anomalies +/or chromosomal or genetic abnormalities Positional clubfoot Results from the fetus's position in the uterus Associated with a restrictive uterine environment (oligohydramnios, uterine anomalies) Clubfoot is a structural deformity of the foot & ankle with: Hindfoot equinus (plantar flexion) Varus of the heel (inward rotation) Supination & adduction of the forefoot (plantar cavus) prevalence of clubfoot varies among different ethnic groups Asians 0.57 per 1,000 live births Caucasians 1-3 per 1,000 live births Polynesians 7 per 1,000 live births Occurs twice as often in male fetuses Unilateral in 30-40% & bilateral in 60-70% of cases Isolated malformation in 50-70% versus complex in 30-50% of cases Complex cases are associated with other structural or genetic anomalies Intrinsic: chromosomal or syndromic Extrinsic: intrauterine crowding, malposition Over 50 syndromes include clubfoot as a reported finding Most common associated malformations include: Central nervous system and spinal anomalies 52% Other musculoskeletal anomalies 28% Thoracic anomalies 12% Aneuploidy risk depends upon presence of other anomalies Clubfoot without other anomalies = 2% Clubfoot with other anomalies = 30% Reported intrinsic factors include: Chromosomal anomalies: Trisomy 18, 13, 21 Deletion syndromes 4p, 18q, 22q11.2 Sex chromosome abnormalities Microdeletions & duplications Genetic syndromes: Hook; Uzair; PierreRobin; Lozoya-Shokeir; Meckel-Blake Aasta-Ebjso-Qzfda; Cox; Lambert TARP (Talipes equinovarus, ASD, Aaron sequence, Persistence of left SVC) Skeletal dysplasias: Ocampo van Creveld, diastrophic dysplasia, chondrodysplasia punctata Camptomelic dysplasia, atelosteogenesis, mesomelic dysplasia Neuromuscular conditions: Arthrogryposis multiplex congenita Myotonic dystrophy, and spinal muscular atrophy Other neurologic abnormalities: Neural tube defects Holoprosencephaly, hydranencephaly Prognosis does not differ whether bilateral or unilateral Polyhydramnios would raise concern for a neuromuscular disorder At about 10% of cases are found to have associated disorders Options for genetic screening & testing: Screening: Multiple marker screen (MMS) or cf-DNA non-invasive screen (NIPS) Testing: amniocentesis for karyotype & microarray A negative genetic screen (e.g. MMS, NIPS) decreases aneuploidy risk, but not to 0 Uncomplicated isolated clubfoot does not alter delivery timing, location or mode About 70-75% of isolated cases are confirmed at delivery (false-positive rate = 10-20%) treatments include: Physiotherapy, splinting, taping, casting (Ponseti method) Surgical interventions Transverse Achilles Lengthening (DANNY) in 80-90% Reconstructive surgery age 1-2 years in 10-20% management is best addressed by Pediatric Orthopedics Recurrence risk of clubfoot is dependent upon multiple factors: Whether etiology is known versus idiopathic gender of affected child (2% male & 5% female) Family history: higher with multiple affected members If both a parent & a child affected, then recurrence risk as high as 25% References cited above The 2019 [facility] Anomalies Consult Series #2: Extremities Escobar Diaz MD Can Reforming Machine Operator, HAZMAT TRUCK DRIVER [facility] Medicine documented in this encounter Plan of Treatment Scheduled Referrals Name Type Priority Associated Diagnoses Orde r Schedule AMB REFERRAL TO MATERNAL- MEDICINE Outpatient Referral Routine Club foot of fetus affecting antepartum care of mother, single or unspecified fetus (HCC) Encounter for anatomic survey (HCC) 1 Occurrences starting 06/18/2024 until 06/18/2025 documented as of this encounter Results * SONOGRAM - COMPLETE (06/27/2024 1:48 PM CDT) Anatomical Region Laterality Modality Other 06/27/2024 1:48 PM CDT Narrative 06/27/2024 3:21 PM CDT ? [facility][NOTE 3] ?Maternal and Care Center ?PHONE: ??FAX: Pat. Name: ?DAVID SUH Pat. No: ?[id number] Study Date: ?? 06/27/2024 ??1:48pm , Age: ? 2000, 24 Pregnancies: ?? 3, Para 0020 Height: ? 65 in Weight: ? 195 lb LMP: ?Unknown GA by US: ? 29w3d ?? JOSÉ: 09/09/2024 GA Selected: ??27w4d (From Known E) JOSÉ: ?09/22/2024 Referring MD: Nilton Rodríguez MD Apron Cleaner: ??Malika Tapia RDMS CPT4: ? 91376 BMI: ?32.45 Hist/Ind: ? Suspected clubfoot on outside U/S ?Low-risk cf-DNA & limited carrier screen ?Class I obesity MEASUREMENTS & AGE ? GROWTH EVALUATION Measurement ??GA ? Range ? Srce %for GA Ratios ----- ---- ------- BPD ??7.6 cm 30w2d (54n9x-48w5o) Hadl BPD 97% FL/BPD 0.71 (0.71 - 0.87) HC ??27.3 cm 29w5d (43y4y-08u4p) Hadl HC ??85% FL/AC ??0.22 (0.20 - 0.24) AC ??24.5 cm 28w5d (26v4y-51n0q) Hadl AC ??77% HC/AC ??1.11 (1.00 - 1.18) FL ?? 5.4 cm 28w4d (96l8h-55n0i) Hadl FL ??65% CI ? 0.79 (0.70 - 0.86) HL ?? 4.7 cm 27w4d (58r3d-12u5o) Landry HL ??51% Cere 3.2 cm 27w3d (69h8n-87t0o) Hill Cere46% GA for sonogram 29w3d (37v0i-02r6f) ?? Weight Estimate: based on (BPD,HC,AC,FL) Avg ?Weight: 1303 gm (1113-1494gm) Had ? : 2lbs, 13oz ? Normal: 1144 gm (858- 1430gm) Hadl ? Wt% ? 86% for 27w4d Heart Rate: 144 bpm Amniotic Fluid Index: 05.2cm (Deepest Pocket) PROCEDURE, TECHNIQUE Technique: transabdominal EVAL, PLACENTA Presentation: cephalic Placenta: posterior Heart Rate: 144 bpm Amniotic Fluid Volume: normal Anatomy!Normal!Abnormal!Suboptimal!Prev. Seen!Comments Cranium ?! ?? x ??! ?! ?! ?! Mdl (CSP/Thal! ?? x ??! ?! ?! ?! Ventricles ?? ! ?? x ??! ?! ?! ?! Choroid Plexu! ?? x ??! ?! ?! ?! Cerebellum ?? ! ?? x ??! ?! ?! ?! Cisterna M. ??! ?? x ??! ?! ?! ?! Orbits ? ! ?! ?! ? x ?! ?! Profile ?! ?? x ??! ?! ?! ?! Nasal Bone ?? ! ?? x ??! ?! ?! ?! Lip ?! ?! ?! ? x ?! ?! Spine ?! ?? x ??! ?! ?! ?! Lungs ?! ?? x ??! ?! ?! ?! 4 Chamber Hea! ?? x ??! ?! ?! ?! LVOT ? ! ?? x ??! ?! ?! ?! RVOT ? ! ?? x ??! ?! ?! ?! 3 Vessel View! ?? x ??! ?! ?! ?! 3 Vessel Trac! ?! ?! ? x ?! ?! Cross-over ?? ! ?? x ??! ?! ?! ?! Ductal Arch ??! ?! ?! ? x ?! ?! Aortic Arch ??! ?! ?! ? x ?! ?! Caval View ?? ! ?! ?! ? x ?! ?! Situs ?! ?? x ??! ?! ?! ?! Diaphragm ?! ?? x ??! ?! ?! ?! Stomach ?! ?? x ??! ?! ?! ?! Bowel ?! ?? x ??! ?! ?! ?! Kidneys ?! ?? x ??! ?! ?! ?! Bladder ?! ?? x ??! ?! ?! ?! 3 Vessel Cord! ?! ?! ? x ?! ?! Cord In! ?! ?! ? x ?! ?! Upper Extremi! ?! ?! ? x ?! ?!unremarkable ?right, suboptimal ?left Hands ?! ?! ?! ? x ?! ?!unremarkable ?right, suboptimal ?left Lower Extremi! ?? x ??! ?! ?! ?! Feet ? ! ?! ?! ? x ?! ?! External Ingrid! ?! ?! ? x ?! ?! Placental Cor! ?? x ??! ?! ?! ?! Maternal Adne! ?? x ??! ?! ?! ?! CLINICAL SUMMARY * Burger IUP at 27 weeks of gestation by stated EDC * Referred to [facility] for obstetrical U/S & request for consult secondary to: ? Suspected unilateral clubfoot on prior outside U/S * Today's ultrasound (U/S) findings: ? Living burger intrauterine fetus ? growth is in the normal range ? Amniotic fluid volume appears normal ? Placenta location appears normal ? Comprehensive anatomic survey appears normal, but is incomplete ?There is NO conclusive evidence of clubfoot on today's exam ?Please see table for suboptimally viewed features ? COUNSELING & RECOMMENDATIONS (PLEASE SEE FULL CONSULT IN EPIC) * Today on U/S anatomy appears normal & I do not identify a limb abnormality ? I tried to reassure the patient that clubfoot probably does not exist ? However, a milder condition such as metatarsus adductus might ? In the event clubfoot should exist, we discussed some of the general concerns (see consult in [facility]) ? At present she declines follow-up U/S in attempt to clear the remaining anatomy Escobar Diaz MD <Electronic Signature> ??06/27/2024 03:18pm R Jaylan Rodríguez MD [facility] ORDERABLES documented in this encounter Visit Diagnoses Diagnosis 27 weeks gestation of (HCC)- Primary state, incidental Club foot of fetus affecting antepartum care of mother, single or unspecified fetus (HCC) Encounter for anatomic survey ([facility]) Encounter for anatomic survey Club foot of fetus affecting antepartum care of mother, single or unspecified fetus (HCC)- Primary Encounter for anatomic survey (HCC) Encounter for anatomic survey documented in this encounter
--- OUTSIDE RECORDS SUMMARY | 2024-10-11 05:29 | XMS_ITS | Encounter Summary ---
Author Organization [facility] Address [address] [place] [address] Care Team Providers Care Designer Architect Name Role Phone Unavailable Primary Care Provider Unavailabl e Reason for Visit * Reason Onset Date Comments Appointment 06/18/2024 LM for pt to C/S appt Encounter Details Date Type Department Care Team (Late st Contact Info) Description 06/18/2024 Telephone [facility] Women's Health Maternal & Care [address] [place] [phone] Estephanie Prince Appointment (LM for pt to C/S appt) Social History Tobacco Use Types Packs/Day Years Used Date Smoking Tobacco: Never Assessed Estimated Date of Delivery Comme nts Yes 09/22/2024 Based on Ultraso und Sex and Gender Information Value Date Recorded Sex Assigned at Not on file Gender Identity Not on file Sexual Orientation Not on file documented as of this encounter Plan of Treatment Not on file documented as of this encounter Visit Diagnoses Not on filedocumented in this encounter
--- OUTSIDE RECORDS SUMMARY | 2024-10-11 05:29 | XMS_ITS | Continuity of Care Document ---
Author Organization [facility] [place] Address [address] [place] [address] Assessment No assessment recorded. Plan of Treatment [...] cy No observ ation record ed. [email or web address] [place] [address], [place], [address], 03/15/2024 13:14:11 03/15/20 24 03/15/2024 US, obste tric, nucha l trans lucen cy No observ ation record ed. [email or web address] [address], [place], [address], 03/15/2024 19:37:42 05/11/2005/11/2024 US, obste tric, 2nd or 3rd trime ster No observ ation record ed. [facility] [address], [place], [address], 05/11/2024 13:43:07 05/11/20 24 05/11/2024 US, obste tric, 2nd or 3rd trime ster No observ ation record ed. [email or web address] [address], [place], [address], 05/14/2024 11:07:43 05/11/20 24 05/11/2024 US, obste tric, 2nd or 3rd trime ster No observ ation record ed. [email or web address] [facility] [address], [place], [address], 05/14/2024 11:05:54 06/15/20 24 06/15/2024 US, obste tric, follo w-up No observ ation record ed. [facility] [address], [place], [address], 06/15/2024 17:26:20 06/15/20 24 06/15/2024 US, obste tric, follo w-up No observ ation record ed. JANELL [address], [place], [address], 06/20/2024 10:48:00 06/27/20 24 06/27/2024 US, obste tric, follo w-up No observ ation record ed. [email or web address] [facility] [address] [place], [address], 07/16/2024 17:57:03 08/03/20 24 08/03/2024 US, obste tric, follo w-up No observ ation record ed. [facility] [address], [place], [address], 08/03/2024 17:17:41 08/03/20 24 08/03/2024 US, obste tric, follo w-up No observ ation record ed. [address], [place], [address], 08/06/2024 15:39:18 08/24/20 24 08/24/2024 US, obste tric, follo w-up No observ ation record ed. [email or web address] [place] [address], [place], [address], 08/24/2024 13:56:13 08/24/20 24 08/24/2024 US, obste tric, follo w-up No observ ation record ed. JANELL [address], [place], [address], 08/27/2024 10:28:40 Result Notes None recorded. Problems Name Problem SNOMED Code Status Onset Date Resolution Date Notes Provider Name and Address Organization Details Recorded Time Pregnanc y 32261460 Completed 202309/13/2024 Harjeet puga, [facility] 4 16:27:58 Anxiety 35234471 Completed Untreate d, possible panic attacks Nilton Rodríguez MD [address], [place], [address], [facility] 4 13:07:27 Gonorrhe a 27075636 Completed treated Nilton Rodríguez MD [address], [place], [address], [facility] 4 13:07:27 clubfoot 7703241411 9101 Completed 2023 possibly - [facility] 06/27 @ 1:45 Level II & OV Eun puga, [facility] 4 14:54:27 History of SARS-CoV -2 4612382153 47115549 Active 2023 ROSALBA CARLSON MD [address], [place], [address], [facility] 4 11:18:44 History of SARS-CoV -2 5316026983 29052216 Completed 2023 ROSALBA CARLSON MD [address], [place], [address], [place] [facility] 4 11:18:44 Gestatio nal diabetes mellitus 02887461 Completed serial growth , checking bs TINA Fishman null, [facility] 4 17:55:50 Gestatio nal diabetes mellitus 81757128 Active serial growth , checking bs QID Anu Fishman null, [facility] 4 17:55:50 Problem Notes None [...] Prescribe d Elsewhere : No Locati on: [facility] By: agustin En counter DateTime: 9 07:41:11 PM Not Available Not Available Not Available Vitals Date Recorded Body height Body mass index (BMI) Body weight Systolic blood pressure Diastolic blood pressure Provider Name and Address Organization Details Last Updated DateTime 08/07/2024 165.1 cm 32.4 kg/m2 30826.51 g 138 mm[Hg] 82 mm[Hg] Jenny Mccarty [facility] 4 14:59:08 Social History Question Answer Notes LastModified by Organizat ion Details LastModified Time What Is Your Level Of Alcohol Consumption? Occasional [email or web address] Information not available 02/16/2024 How Many Years Have You Consumed Alcohol? 5 [email or web address] Information not available 02/16/2024 Are You Blind Or Do You Have Difficulty Seeing? No [email or web address] Information not available 02/16/2024 What Is Your Level Of Caffeine Consumption? Heavy Information not available 02/16/2024 How Much Tobacco Do You Chew? None [email or web address] Information not available 02/16/2024 In The 14 Days Before Symptom Onset, Have You Had Close Contact With A Laboratory-confir med COVID-19 While That Case Was Ill? No [email or web address] Information not available 02/16/2024 In The 14 Days Before Symptom Onset, Have You Had Close Contact With A Person Who Is Under Investigation For COVID-19 While That Person Was Ill? No [email or web address] Information not available 02/16/2024 Have You Been To An Area Known To Be High Risk For COVID-19? No [email or web address] Information not available 02/16/2024 Are You Currently Employed? Yes [email or web address] Information not available 03/15/2024 Are You Deaf Or Do You Have Serious Difficulty Hearing? No [email or web address] Information not available 02/16/2024 What Type Of Diet Are You Following? REGULAR [email or web address] Information not available 02/16/2024 What Is The Highest Grade Or Level Of School You Have Completed Or The Highest Degree You Have Received? VY73925-2 [email or web address] Information not available 02/16/2024 What Is Your Occupation? [employer] [email or web address] Information not available 02/16/2024 Are There Any Guns Present In Your Home? No [email or web address] Information not available 02/16/2024 Do You Use Protection During Sex? No [email or web address] Information not available 02/16/2024 Do You Use Your Seat Belt Or Car Seat Routinely? Yes [email or web address] Information not available 02/16/2024 Are You Sexually Active? Yes [email or web address] Information not available 03/15/2024 Do You Have Smoke And Carbon Monoxide Detectors In Your Home? Yes [email or web address] Information not available 02/16/2024 How Much Tobacco Do You Smoke? No [email or web address] Information not available 02/16/2024 Do You Feel Stressed (tense, Restless, Nervous, Or Anxious, Or Unable To Sleep At Night)? CX7135-5 Information not available 02/16/2024 Do You Use Any Illicit Or Recreational Drugs? Yes [email or web address] Information not available 02/16/2024 Do You Use Sunscreen Routinely? No [email or web address] Information not available 02/16/2024 Have You Used IV Drugs? No [email or web address] Information not available 02/16/2024 Sex: Unknown Functional Status Question Answer Note LastModified by Organizat ion Details LastModified Time Do you have difficulty walking or climbing stairs? No [email or web address] Information not available 03/15/2024 Are you able to walk? YESWOREST [email or web address] Information not available 02/16/2024 Are you able to care for yourself? Yes [email or web address] Information not available 03/15/2024 Do you have difficulty dressing or bathing? No [email or web address] Information not available 03/15/2024 What is your exercise level? Occasional [email or web address] Information not available 02/16/2024 Mental Status None [...] Diagnosis/Indication Diagnosis SNOMED-CT Code Diagnosis ICD10 Code 764060 [facility] [address] [address] 07/20/2024 10:50:29 07/20/2024 14:01:45 Gestational diabetes mellitus 35994346 O24.410 [id number] ROSALBA CARLSON MD [place] [address],[place] [address] 07/20/2024 10:50:58 07/20/2024 15:19:49 Gestational diabetes mellitus 45105628 O24.410 History of SARS-CoV-2 29 28844802 03944807 Z86.16 Gestation period, 30 weeks 59978413 Z3A.30 [id number] [facility] [address],[place] [address] 08/03/2024 10:22:11 08/03/2024 11:26:00 Gestational diabetes mellitus 07374703 O24.410 Z86.16 Z3A.32 [id number] ROSALBA CARLSON MD [place] [address] [address] 08/07/2024 14:44:04 08/07/2024 16:05:05 Gestational diabetes mellitus 03708936 O24.410 Gestation period, 33 weeks 05044628 Z3A.33 Health Concerns Section Related Observation LastModified by Organization Detai ls LastModified Time None Recorded Concern Status LastModified by Organization Details LastModified Time None Recorded Payers Encounter Date Sequence Insurance Name Policy Number Policy Cast Covered Member ID Cast Member ID Guarantor Name 08/07/2024 1 [employer] [id number] Veena Montalvo [id number] Veena Montalvo OBGyn Episode Ob Episode Information Episode Created Date Number of Fetuses Patient Bloodtype Patient rh Status Prepregnancy Weight lbs Domestic Partner Domestic Partner Phone Father Name Purchasing Supervisor Status 03/15/20 24 1 AB Positive 188 CLOSED Fetus Data First Name Last Name Admitted to NICU Weight (g) Sex Living Outcome Pediatric Complications Fetus ID Race Codes Race Delivery Type 3090.09 55 M true Full Term [email or web address] [id number] Vaginal Delivery Problems Problem Notes failed 1 hr - 3hr gtt 07/13Bo y,MFM Appt: 06/27 145p u/s and ov - no club foot noted on ultrasound.bg,rn Problem Name Start Date End Date Resolution Snomed Code Not e Gestational diabetes mellitus 02474452 serial joe wth , checking bs QID Anxiety 32667132 Untreated, possible panic attacks clubfoot 06/15/2024 20354435390253 possibly - to see [facility] 06/27 @ 1:45 Level II & OV History of SARS-CoV-2 07/06/2024 547082031536720876 Gonorrhea 90254636 treated José Calculation JOSÉ Calculation Method Initial [...] Weight in lbs Pre/Post Dialysis Refused Weight 188.485590216113 BP Diastolic BP Location Tested BP Systolic BP Type 75 L arm 121 sitting Fetus Heart Rate Present A 153 Fetus Movement Comments This patient is a 23-year-ol d 3 para 997416 weeks' gestation who presents for initial care. [...] Weight in lbs Pre/Post Dialysis Refused Weight 190.385744204274 BP Diastolic BP Location Tested BP Systolic BP Type 82 L arm 127 sitting Fetus Heart Rate Present A 145 Fetus Movement A No Comments reports recent chest pain, l ikely she related to anxiety attack, she was laying down. With the tightness and shortness in her sternum help high. [place] like there was a bubble there was [...] Weight in lbs Pre/Post Dialysis Refused Weight 190.072617137035 BP Diastolic BP Location Tested BP Systolic [...] Type Weight in lbs Pre/Post Dialysis Refused 195.917111513341 BP Diastolic BP Location Tested BP Systolic [...] Weight in lbs Pre/Post Dialysis Refused Weight 193.409389351278 BP Diastolic BP Location Tested BP Systolic [...] Type Weight in lbs Pre/Post Dialysis Refused 192.448296936210 BP Diastolic BP Location Tested BP Systolic [...] Weight in lbs Pre/Post Dialysis Refused Weight 195.820810183360 BP Diastolic BP Location Tested BP Systolic [...] Weight in lbs Pre/Post Dialysis Refused Weight 192.458893195310 BP Diastolic BP Location Tested BP Systolic BP Type 84 L arm 130 sitting Fetus Heart Rate Present A 127 Fetus Movement A Yes Comments Patient c/o of [place] . Good movement. No bleeding or [...] Weight in lbs Pre/Post Dialysis Refused Weight 192.106896175462 BP Diastolic BP Location Tested BP Systolic [...] Estim ated Date of Delivery false Thalassemia (Bulgarian, Ethiopian, Mediterranean, Or Background): MCV < 80 false Neural Tube Defect (Meningomyelocele, Spina Bifi da, Or Anencephaly) false Congenital Heart Defect false Down Syndrome false Boris-Sachs (eg, Taoist, Cajun, Thai-[place] Citizen) f alse Edward Disease false Sickle Cell [...]
--- OUTSIDE RECORDS SUMMARY | 2024-10-11 05:29 | XMS_ITS | Referral Summary ---
Author Organization [id number] Address [address] [place] [address] Care Team Providers Care Transplanter Name Role Phone Unavailable Primary Care Provider Unavailabl e Source Comments [facility],non-owned Affiliates and Associated Physician Practices is amultiple site organization consisting of ambulatory clinics and hospital sitesin [place], [place], [place] and [place]. This disclosure is being madepursuant to the Care Everywhere program and may not contain all information available regarding this patient. Last updated 18.[id number] Allergies No known active allergies Medications Be aware that medications may not be up to date on this document. Always verify current medications with the patient. No known medications Social History Tobacco Use Types Packs/Day Years [...] on file Sexual Orientation Not on file Last Filed Vital Signs Vital Sign Reading [...] [place] Index 30.83 06/27/2024 2:37 PM CDT Plan of Treatment Not on file
--- OUTSIDE RECORDS SUMMARY | 2024-10-11 05:29 | XMS_ITS | Continuity of Care Document ---
Author Organization [facility] [place] Address [address] [place] [address] [place] [address] Assessment No assessment recorded. Plan of Treatment Reminders Order Date Submit Date Provider Last Modified By Organization Details Last Modified Time Details Appointments POST 2024 08:30A M ROSALBA CARLSON MD Not available Not available Not available Lab None recorded . Referral None recorded . Procedures None recorded . Surgeries None recorded . Imaging US, obstetri c, follow-u p 2023 024 [email or web address] [facility], [address], [place], [address], 08/03/2024 12:20:53 Medication Orders None recorded . Patient TargetsNo targets recorded. Patient InstructionsNo instructions recorded. Reason for Referral None Reported. Results Created Date Observation Date Name Description Value Unit Range Abnormal Flag Note LastModifiedBy Organization Detail LastModifiedTime 03/15/2003/15/2024 US, obste tric, nucha l trans lucen cy No observ ation record ed. [email or web address] [facility] [address], [place], [address], 03/15/2024 13:14:11 03/15/20 24 03/15/2024 US, obste tric, nucha l trans lucen cy No observ ation record ed. [email or web address] [facility] [address], [place], [address], 03/15/2024 19:37:42 05/11/20 24 05/11/2024 US, obste tric, 2nd or 3rd trime ster No observ ation record ed. [facility] [address], [place], [address], 05/11/2024 13:43:07 05/11/20 24 05/11/2024 US, obste tric, 2nd or 3rd trime ster No observ ation record ed. [email or web address] [facility] [address], [place], [address], 05/14/2024 11:07:43 05/11/20 24 05/11/2024 US, obste tric, 2nd or 3rd trime ster No observ ation record ed. [email or web address] [facility] [address], [place], [address], 05/14/2024 11:05:54 06/15/20 24 06/15/2024 US, obste tric, follo w-up No observ ation record ed. [facility] [address], [place], [address], 06/15/2024 17:26:20 06/15/20 24 06/15/2024 US, obste tric, follo w-up No observ ation record ed. JANELL [address], [place], [address], 06/20/2024 10:48:00 06/27/20 24 06/27/2024 US, obste tric, follo w-up No observ ation record ed. [email or web address] [facility] [address] [place], [address], 07/16/2024 17:57:03 08/03/20 24 08/03/2024 US, obste tric, follo w-up No observ ation record ed. [facility] [address], [place], [address], 08/03/2024 17:17:41 08/03/2008/03/2024 US, obste tric, follo w-up No observ ation record ed. [email or web address] [address], [place], [address], 08/06/2024 15:39:18 08/24/20 24 08/24/2024 US, obste tric, follo w-up No observ ation record ed. [facility] [address], [place], [address], 08/24/2024 13:56:13 08/24/2008/24/2024 US, obste tric, follo w-up No observ ation record ed. JANELL [address], [place], [address], 08/27/2024 10:28:40 Result Notes None recorded. Problems Name Problem SNOMED Code Status Onset Date Resolution Date Notes Provider Name and Address Organization Details Recorded Time Pregnanc y 15450280 Completed 202309/13/2024 Harjeet puga [facility] 4 16:27:58 Anxiety 32229772 Completed Untreate d, possible panic attacks Nilton Rodríguez MD [address], [place], [address], [facility] 4 13:07:27 Gonorrhe a 48682987 Completed treated Nilton Rodríguez MD [address], [place], [address], [facility] 4 13:07:27 clubfoot 3688782744 9101 Completed 2023 [facility] - [facility] 06/27 @ 1:45 Level II & OV Eun puga [facility] 4 14:54:27 History of SARS-CoV -2 4418139019 50544240 Active 2023 ROSALBA CARLSON MD [address], [place], [address], [facility] 4 11:18:44 History of SARS-CoV -2 8620306060 47512798 Completed 2023 ROSALBA CARLSON MD [address], [place], [address], [facility] 4 11:18:44 Gestatio nal diabetes mellitus 83884279 Completed serial growth , checking bs QID Anu Fishman null, [facility] 4 17:55:50 Gestatio nal diabetes mellitus 49468707 Active serial growth , checking bs QID Anu Fishman null, [facility] 17:55:50 Problem Notes None recorded. Procedures Surgical History None recorded. Imaging Results Imaging Date Name Status LastModified by Organiz ation Details LastModified Time 08/03/2024 US, obstetric, follow-up completed [facility] [address], [place], [address], 08/03/2024 17:17:41 08/03/2024 US, obstetric, follow-up completed [email or web address] [address], [place], [address], 08/06/2024 15:39:18 Procedure Notes None recorded. Medical Equipment None [...] Prescribe d Elsewhere : No Locati on: [facility] Fer mina By: agustin Fowler counter DateTime: 9 07:41:11 PM Not Available Not Available Not Available Vitals None Recorded Social History Question Answer Notes LastModified by Organizat ion Details LastModified Time What Is Your Level Of Alcohol Consumption? Occasional Information not available 02/16/2024 How Many Years Have You Consumed Alcohol? 5 [email or web address] Information not available 02/16/2024 Are You Blind Or Do You Have Difficulty Seeing? No [email or web address] Information not available 02/16/2024 What Is Your Level Of Caffeine Consumption? Heavy [email or web address] Information not available 02/16/2024 How Much Tobacco Do You Chew? None [email or web address] Information not available 02/16/2024 In The 14 Days Before Symptom Onset, Have You Had Close Contact With A Laboratory-confir med COVID-19 While That Case Was Ill? No Information not available 02/16/2024 In The 14 Days Before Symptom Onset, Have You Had Close Contact With A Person Who Is Under Investigation For COVID-19 While That Person Was Ill? No [email or web address] Information not available 02/16/2024 Have You Been To An Area Known To Be High Risk For COVID-19? No [email or web address] Information not available 02/16/2024 Are You Currently Employed? Yes Information not available 03/15/2024 Are You Deaf Or Do You Have Serious Difficulty Hearing? No [email or web address] Information not available 02/16/2024 What Type Of Diet Are You Following? REGULAR [email or web address] Information not available 02/16/2024 What Is The Highest Grade Or Level Of School You Have Completed Or The Highest Degree You Have Received? [id number] [email or web address] Information not available 02/16/2024 What Is Your Occupation? [employer] [email or web address] Information not available 02/16/2024 Are There Any Guns Present In Your Home? No [email or web address] Information not available 02/16/2024 Do You Use Protection During Sex? No [email or web address] Information not available 02/16/2024 Do You Use Your Seat Belt Or Car Seat Routinely? Yes [email or web address] Information not available 02/16/2024 Are You Sexually Active? Yes [email or web address] Information not available 03/15/2024 Do You Have Smoke And Carbon Monoxide Detectors In Your Home? Yes [email or web address] Information not available 02/16/2024 How Much Tobacco Do You Smoke? No [email or web address] Information not available 02/16/2024 Do You Feel Stressed (tense, Restless, Nervous, Or Anxious, Or Unable To Sleep At Night)? DD8124-6 [email or web address] Information not available 02/16/2024 Do You Use Any Illicit Or Recreational Drugs? Yes [email or web address] Information not available 02/16/2024 Do You Use Sunscreen Routinely? No [email or web address] Information not available 02/16/2024 Have You Used IV Drugs? No [email or web address] Information not available 02/16/2024 Sex: Unknown Functional Status Question Answer Note LastModified by Organizat ion Details LastModified Time Do you have difficulty walking or climbing stairs? No [email or web address] Information not available 03/15/2024 Are you able to walk? YESWOREST [email or web address] Information not available 02/16/2024 Are you able to care for yourself? Yes [email or web address] Information not available 03/15/2024 Do you have difficulty dressing or bathing? No Information not available 03/15/2024 What is your exercise level? Occasional [email or web address] Information not available 02/16/2024 Mental Status None [...] Diagnosis/Indication Diagnosis SNOMED-CT Code Diagnosis ICD10 Code [id number] ROSALBA CARLSON MD [facility] [address],[place] [address] 07/06/2024 10:13:34 07/06/2024 11:30:00 History of SARS-CoV-2 0261039766 47295572 Z86.16 Gestation period, 28 weeks 76671753 Z3A.28 888124 Eun Dietrich [facility] [address],[place] [address] 07/20/2024 10:50:29 07/20/2024 14:01:45 Gestational diabetes mellitus 08854365 O24.410 [id number] ROSALBA CARLSON MD [facility] [address],[place] [address] 07/20/2024 10:50:58 07/20/2024 15:19:49 Gestational diabetes mellitus 55808956 O24.410 History of SARS-CoV-2 29 45190171 33083436 Z86.16 Gestation period, 30 weeks 24330258 Z3A.30 248138 [facility] [address],[place] [address] 08/03/2024 10:22:11 08/03/2024 11:26:00 Gestational diabetes mellitus 28689474 O24.410 Z86.16 Z3A.32 Health Concerns Section Related Observation LastModified by Organization Detai ls LastModified Time None Recorded Concern Status LastModified by Organization Details LastModified Time None Recorded Payers Encounter Date Sequence Insurance Name Policy Number Policy Cast Covered Member ID Cast Member ID Guarantor Name 08/03/2024 1 [employer] [id number] Veena Montalvo [id number] Veena Montalvo OBGyn Episode Ob Episode Information Episode Created Date Number of Fetuses Patient Bloodtype Patient rh Status Prepregnancy Weight lbs Domestic Partner Domestic Partner Phone Father Name Business 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 Consultant Status 03/15/20 24 1 AB Positive 188 CLOSED Fetus Data First Name Last Name Admitted to NICU Weight (g) Sex Living Outcome Pediatric Complications Fetus ID Race Codes Race Delivery Type 3090.09 55 M true Full Term [email or web address] [id number] Vaginal Delivery Problems Problem Notes failed 1 hr - 3hr gtt 07/13Bo y,MFM Appt: 06/27 145p u/s and ov - no club foot noted on ultrasound.bg,rn Problem Name Start Date End Date Resolution Snomed Code Not e Gestational diabetes mellitus 69203013 serial joe wth , checking bs QID Anxiety 32558115 Untreated, possible panic attacks clubfoot 06/15/2024 78993429879598 possibly - to see mf - schd 06/27 @ 1:45 Level II & OV History of SARS-CoV-2 07/06/2024 251404229123403559 Gonorrhea 57643308 treated José Calculation JOSÉ Calculation Method Initial [...] Weight in lbs Pre/Post Dialysis Refused Weight 188.459466317257 BP Diastolic BP Location Tested BP Systolic BP Type 75 L arm 121 sitting Fetus Heart Rate Present A 153 Fetus Movement Comments This patient is a 23-year-ol d 3 para 385269 weeks' gestation who presents for initial care. [...] Weight in lbs Pre/Post Dialysis Refused Weight 190.892123178921 BP Diastolic BP Location Tested BP Systolic BP Type 82 L arm 127 sitting Fetus Heart Rate Present A 145 Fetus Movement A No Comments reports recent chest pain, l ikely she related to anxiety attack, she was laying down. With the tightness and shortness in her sternum help high. [place] like there was a bubble there was [...] Weight in lbs Pre/Post Dialysis Refused Weight 190.115111620323 BP Diastolic BP Location Tested BP Systolic [...] Type Weight in lbs Pre/Post Dialysis Refused 195.133655429887 BP Diastolic BP Location Tested BP Systolic [...] Weight in lbs Pre/Post Dialysis Refused Weight 193.151881067208 BP Diastolic BP Location Tested BP Systolic [...] Type Weight in lbs Pre/Post Dialysis Refused 192.836043531223 BP Diastolic BP Location Tested BP Systolic [...] Weight in lbs Pre/Post Dialysis Refused Weight 195.308249968974 BP Diastolic BP Location Tested BP Systolic [...] Weight in lbs Pre/Post Dialysis Refused Weight 192.338844910218 BP Diastolic BP Location Tested BP Systolic BP Type 84 L arm 130 sitting Fetus Heart Rate Present A 127 Fetus Movement A Yes Comments Patient c/o of Weakley Callahan . Good movement. No bleeding or [...] Weight in lbs Pre/Post Dialysis Refused Weight 192.831159189015 BP Diastolic BP Location Tested BP Systolic [...] Estim ated Date of Delivery false Thalassemia ([place] Citizen, Yi, Mediterranean, Or Background): MCV < 80 false Neural Tube Defect (Meningomyelocele, Spina Bifi da, Or Anencephaly) false Congenital Heart Defect false Down Syndrome false Boris-Sachs (eg, Oriental Orthodox, Cajun, Moz[place]ican-[place]cadine) f alse Edward Disease false Sickle Cell [...]
--- OUTSIDE RECORDS SUMMARY | 2024-10-11 05:29 | XMS_ITS | Patient Health Summary ---
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 This disclosure is being madepursuant to the Care Everywhere program and may not contain all information available regarding this patient. Last updated 18.[facility] Allergies No known active allergies Medications Be [...] Mass Index 30.83 06/27/2024 2:37 PM CDT Procedures * SONOGRAM - COMPLETE(Performed 06/27/2024) Performed for Club foot of fetus affecting antepartum care of mother, single or unspecified fetus (HCC), Encounter for anatomic survey ([facility]) Results * SONOGRAM - COMPLETE (06/27/2024 1:48 PM CDT) Anatomical Region Laterality Modality Other 06/27/2024 1:48 PM CDT Narrative 06/27/2024 3:21 PM CDT ? [facility] ?Maternal and Care Center ?PHONE: ??FAX: Pat. Name: ?VEENA SUH Pat. No: ?[id number] Study Date: ?? 06/27/2024 ??1:48pm , Age: ? 2000, 24 Pregnancies: ?? 3, Para 0020 Height: ? 65 in Weight: ? 195 lb LMP: ?Unknown GA by US: ? 29w3d ?? JOSÉ: 09/09/2024 GA Selected: ??27w4d (From Known E) JOSÉ: ?09/22/2024 Referring MD: Nilton Rodríguez MD Family Day Carer: ??Malika Tapia RDMS CPT4: ? 01774 BMI: ?32.45 Hist/Ind: ? Suspected clubfoot on outside U/S ?Low-risk cf-DNA & limited carrier screen ?Class I obesity MEASUREMENTS & AGE ? GROWTH EVALUATION Measurement ??GA ? Range ? Srce %for GA Ratios ----- ---- ------- BPD ??7.6 cm 30w2d (02p8a-06b4w) Hadl BPD 97% FL/BPD 0.71 (0.71 - 0.87) HC ??27.3 cm 29w5d (08x7x-74c1j) Hadl HC ??85% FL/AC ??0.22 (0.20 - 0.24) AC ??24.5 cm 28w5d (10s7g-92i3h) Hadl AC ??77% HC/AC ??1.11 (1.00 - 1.18) FL ?? 5.4 cm 28w4d (00w1q-72t6z) Hadl FL ??65% CI ? 0.79 (0.70 - 0.86) HL ?? 4.7 cm 27w4d (71l5t-74g7m) Landry HL ??51% Cere 3.2 cm 27w3d (87h1n-33c8g) Hill Cere46% GA for sonogram 29w3d (10h3d-81v5j) ?? Weight Estimate: based on (BPD,HC,AC,FL) Avg [...] gestation by stated EDC * Referred to [facility] for obstetrical U/S & request for consult [...] of the general concerns (see consult in Epic) ? At present she declines follow-up U/S in attempt to clear the remaining anatomy Escobar Diaz MD <Electronic Signature> ??06/27/2024 03:18pm R Jaylan Rodríguez MD [facility] ORDERABLES
--- OUTSIDE RECORDS SUMMARY | 2024-10-11 05:29 | XMS_ITS | Encounter Summary ---
Author Organization [facility] Address [address] [place] [address] Care Team Providers Care Underwriter Solicitation Director Name Role Phone Unavailable Primary Care Provider Unavailabl e Reason for Referral * (Routine) - Open Specialty Diagnoses / Procedures Referred By Contac t Referred To Contact Diagnoses Club foot of fetus affecting antepartum care of mother, single or unspecified fetus (HCC) Encounter for anatomic survey (HCC) Procedures SONOGRAM - COMPLETE Carlyle Rodríguez MD [address] [place] [address] Referral ID Status Reason Start Date Expiration Date Visits Re quested Visits Authorized [id number] Open 06/18/2024 06/18/2025 1 1 Encounter Details Date Type Department Care Team (Latest Contact Info) Description 06/27/2024 1:38 PM CDT Hospital Encounter [facility] [address] [place] [address] Escobar Diaz MD [address] [place] [address] Discharge Disposition: Home or Self Care Social History Tobacco Use Types Packs/Day Years Used Date Smoking Tobacco: Former Cigarettes Smokeless Tobacco: Never Alcohol Use Standard Drinks/Week Comments Not Currently [...] on file documented as of this encounter Procedures Procedure Name Priority Date/Time Associated Diagnosis Comments SONOGRAM - COMPLETE Routine 06/27/2024 1 :48 PM CDT Club foot of fetus affecting antepartum care of mother, single or unspecified fetus (HCC) Encounter for anatomic survey (HCC) documented in this encounter Results * SONOGRAM - COMPLETE (06/27/2024 1:48 PM CDT) Anatomical Region Laterality Modality Other 06/27/2024 1:48 PM CDT Narrative 06/27/2024 3:21 PM CDT ? [facility] ?M[facility] Care Center ?PHONE: ??FAX: Pat. Name: ?VEENA SUH Pat. No: ?[id number] Study Date: ?? 06/27/2024 ??1:48pm , Age: ? 2000, 24 Pregnancies: ?? 3, Para 0020 Height: ? 65 in Weight: ? 195 lb LMP: ?Unknown GA by US: ? 29w3d ?? JOSÉ: 09/09/2024 GA Selected: ??27w4d (From Known E) JOSÉ: ?09/22/2024 Referring MD: Nilton Rodríguez MD Cloth Dyeing Range Tender: ??Malika Tapia RDMS CPT4: ? 48791 BMI: ?32.45 Hist/Ind: ? Suspected clubfoot on outside U/S ?Low-risk cf-DNA & limited carrier screen ?Class I obesity MEASUREMENTS & AGE ? GROWTH EVALUATION Measurement ??GA ? Range ? Srce %for GA Ratios ----- ---- ------- BPD ??7.6 cm 30w2d (13r2e-19j7o) Hadl BPD 97% FL/BPD 0.71 (0.71 - 0.87) HC ??27.3 cm 29w5d (17k1y-86y2w) Hadl HC ??85% FL/AC ??0.22 (0.20 - 0.24) AC ??24.5 cm 28w5d (23k4r-83y0k) Hadl AC ??77% HC/AC ??1.11 (1.00 - 1.18) FL ?? 5.4 cm 28w4d (44b2l-24b3p) Hadl FL ??65% CI ? 0.79 (0.70 - 0.86) HL ?? 4.7 cm 27w4d (09n3w-48g3t) Landry HL ??51% Cere 3.2 cm 27w3d (57s9p-98c8r) Hill Cere46% GA for sonogram 29w3d (84f6b-76x9u) ?? Weight Estimate: based on (BPD,HC,AC,FL) Avg [...] gestation by stated EDC * Referred to [facility] for obstetrical U/S & request for consult [...] Signature> ??06/27/2024 03:18pm R Jaylan Rodríguez MD [facility] ORDERABLES documented in this encounter Visit Diagnoses Diagnosis 27 weeks gestation of ([facility])- Primary state, incidental Club foot of fetus affecting antepartum care of mother, single or unspecified fetus ([facility]) Encounter for anatomic survey ([facility]) Encounter for anatomic survey documented in this encounter
--- OUTSIDE RECORDS SUMMARY | 2024-10-11 05:29 | XMS_ITS | Continuity of Care Document ---
Author Organization [facility] [place] Address [address] [place] [address] Assessment No assessment recorded. Plan of Treatment [...] cy No observ ation record ed. [email or web address] [place] [address], [place], [address], 03/15/2024 13:14:11 03/15/20 24 03/15/2024 US, obste tric, nucha l trans lucen cy No observ ation record ed. [email or web address] [address], [place], [address], 03/15/2024 19:37:42 05/11/2005/11/2024 US, obste tric, 2nd or 3rd trime ster No observ ation record ed. [facility] [address], [place], [address], 05/11/2024 13:43:07 05/11/20 24 05/11/2024 US, obste tric, 2nd or 3rd trime ster No observ ation record ed. [email or web address] [address], [place], [address], 05/14/2024 11:07:43 05/11/20 24 05/11/2024 US, obste tric, 2nd or 3rd trime ster No observ ation record ed. [email or web address] [address], [place], [address], 05/14/2024 11:05:54 06/15/20 24 06/15/2024 US, obste tric, follo w-up No observ ation record ed. [facility] [address], [place], [address], 06/15/2024 17:26:20 06/15/20 24 06/15/2024 US, obste tric, follo w-up No observ ation record ed. JANELL [address], [place], [address], 06/20/2024 10:48:00 06/27/20 24 06/27/2024 US, obste tric, follo w-up No observ ation record ed. [email or web address] [facility] [address] [place], [address], 07/16/2024 17:57:03 08/03/20 24 08/03/2024 US, obste tric, follo w-up No observ ation record ed. [facility] [address], [place], [address], 08/03/2024 17:17:41 08/03/20 24 08/03/2024 US, obste tric, follo w-up No observ ation record ed. [email or web address] [address], [place], [address], 08/06/2024 15:39:18 08/24/20 24 08/24/2024 US, obste tric, follo w-up No observ ation record ed. [email or web address] [place] [address], [place], [address], 08/24/2024 13:56:13 08/24/20 24 08/24/2024 US, obste tric, follo w-up No observ ation record ed. JANELL [address], [place], [address], 08/27/2024 10:28:40 Result Notes None recorded. Problems Name Problem SNOMED Code Status Onset Date Resolution Date Notes Provider Name and Address Organization Details Recorded Time Pregnanc y 67111110 Completed 202309/13/2024 Harjeet puga, [facility] 4 16:27:58 Anxiety 76715800 Completed Untreate d, possible panic attacks Nilton Rodríguez MD [address], [place], [address], , P[facility] 4 13:07:27 Gonorrhe a 09152808 Completed treated Nilton Rodríguez MD [address], [place], [address], , P.C[facility] 4 13:07:27 clubfoot 0587520155 9101 Completed 2023 possibly - [facility] 06/27 @ 1:45 Level II & OV Eun puga, [facility] 4 14:54:27 History of SARS-CoV -2 1326818104 62837094 Active 2023 ROSALBA CHAVEZ MD [address], [place], [address], , P.C. 4 11:18:44 History of SARS-CoV -2 5094916949 55137221 Completed 2023 ROSALBA CHAVEZ MD [address], [place], [address], , P.C. 4 11:18:44 Gestatio nal diabetes mellitus 90491553 Completed serial growth , checking bs TINA Fishman null, [facility] 4 17:55:50 Gestatio nal diabetes mellitus 10948940 Active serial growth , checking bs QID Anu Fishman null, [facility] 4 17:55:50 Problem Notes None [...] Prescribe d Elsewhere : No Locati on: [facility] Mo keeley By: [email or web address] En counter DateTime: 9 07:41:11 PM Not Available Not Available Not Available Vitals Date Recorded Body height Body mass index (BMI) Body weight Systolic blood pressure Diastolic blood pressure Provider Name and Address Organization Details Last Updated DateTime 07/20/2024 165.1 cm 32 kg/m2 31386.73 504 g 112 mm[Hg] 72 mm[Hg] Jenny Mccarty [facility] 4 12:00:54 Social History Question Answer Notes LastModified by Organizat ion Details LastModified Time What Is Your Level Of Alcohol Consumption? Occasional Information not available 02/16/2024 How Many Years Have You Consumed Alcohol? 5 [email or web address] Information not available 02/16/2024 Are You Blind Or Do You Have Difficulty Seeing? No [email or web address] Information not available 02/16/2024 What Is Your Level Of Caffeine Consumption? Heavy [email or web address] Information not available 02/16/2024 How Much Tobacco Do You Chew? None [email or web address] Information not available 02/16/2024 In The 14 Days Before Symptom Onset, Have You Had Close Contact With A Laboratory-confir med COVID-19 While That Case Was Ill? No [email or web address] Information not available 02/16/2024 In The 14 Days Before Symptom Onset, Have You Had Close Contact With A Person Who Is Under Investigation For COVID-19 While That Person Was Ill? No [email or web address] Information not available 02/16/2024 Have You Been To An Area Known To Be High Risk For COVID-19? No Information not available 02/16/2024 Are You Currently Employed? Yes [email or web address] Information not available 03/15/2024 Are You Deaf Or Do You Have Serious Difficulty Hearing? No [email or web address] Information not available 02/16/2024 What Type Of Diet Are You Following? REGULAR [email or web address] Information not available 02/16/2024 What Is The Highest Grade Or Level Of School You Have Completed Or The Highest Degree You Have Received? ZI76788-5 [email or web address] Information not available 02/16/2024 What Is Your Occupation? Dun[employer] [email or web address] Information not available 02/16/2024 Are There Any Guns Present In Your Home? No [email or web address] Information not available 02/16/2024 Do You Use Protection During Sex? No [email or web address] Information not available 02/16/2024 Do You Use Your Seat Belt Or Car Seat Routinely? Yes [email or web address] Information not available 02/16/2024 Are You Sexually Active? Yes [email or web address] Information not available 03/15/2024 Do You Have Smoke And Carbon Monoxide Detectors In Your Home? Yes [email or web address] Information not available 02/16/2024 How Much Tobacco Do You Smoke? No [email or web address] Information not available 02/16/2024 Do You Feel Stressed (tense, Restless, Nervous, Or Anxious, Or Unable To Sleep At Night)? HD5049-6 Information not available 02/16/2024 Do You Use Any Illicit Or Recreational Drugs? Yes [email or web address] Information not available 02/16/2024 Do You Use Sunscreen Routinely? No [email or web address] Information not available 02/16/2024 Have You Used IV Drugs? No [email or web address] Information not available 02/16/2024 Sex: Unknown Functional Status Question Answer Note LastModified by Organizat ion Details LastModified Time Do you have difficulty walking or climbing stairs? No Information not available 03/15/2024 Are you able to walk? YESWOREST [email or web address] Information not available 02/16/2024 Are you able to care for yourself? Yes [email or web address] Information not available 03/15/2024 Do you have difficulty dressing or bathing? No [email or web address] Information not available 03/15/2024 What is your exercise level? Occasional [email or web address] Information not available 02/16/2024 Mental Status None recorded. Family History Nothing Reported. Medical History Condition Response Allergies (Food, seasonal, environmental ) N Other N Breast Cancer N Drug/Latex Allergies/Reactions N Blood Transfusion N Dermatologic Disorders N Lung Disease N Defects or Inherited Disease N Breast Problem N Gestational Diabetes N Hematologic disorders N Anesthesia Complications N History of STI N Deep Vein Thrombosis N Polycystic ovary syndrome N Anxiety Disorder N Autoimmune disease N Arthritis N Infertility N Polyps N Acid Reflux (GERD) N History of abnormal pap N Cancer N Stroke N Varicosities N Neurologic/Epilepsy N Endometriosis N High Cholesterol N Headaches N Fibromyalgia N Kidney Disease N Heart Problems N Kidney or Bladder Problems N Thyroid Problems N GI Problems N Eating Disorder [...] Diagnosis/Indication Diagnosis SNOMED-CT Code Diagnosis ICD10 Code [id number] Rajani Octavio [facility] [address],[place] [address] 06/20/2024 11:57:10 06/21/2024 09:03:31 02443380 Z33.1 [id number] ROSALBA CHAVEZ MD [place] [address],[place] [address] 07/06/2024 10:13:34 07/06/2024 11:30:00 History of SARS-CoV-2 3451514148 88968038 Z86.16 Gestation period, 28 weeks 11181377 Z3A.28 [id number] Eun Dietrich [place] [address],[place] [address] 07/20/2024 10:50:29 07/20/2024 14:01:45 Gestational diabetes mellitus 77590029 O24.410 [id number] ROSALBA CHAVEZ MD [place] [address],[place] [address] 07/20/2024 10:50:58 07/20/2024 15:19:49 Gestational diabetes mellitus 12563993 O24.410 History of SARS-CoV-2 29 33100943 24166833 Z86.16 Gestation period, 30 weeks 54716332 Z3A.30 Health Concerns Section Related Observation LastModified by Organization Detai ls LastModified Time None Recorded Concern Status LastModified by Organization Details LastModified Time None Recorded Payers Encounter Date Sequence Insurance Name Policy Number Policy Cast Covered Member ID Cast Member ID Guarantor Name 07/20/2024 1 [employer] [id number] Veena Montalvo [id number] Veena Montalvo OBGyn Episode Ob Episode Information Episode Created Date Number of Fetuses Patient Bloodtype Patient rh Status Prepregnancy Weight lbs Domestic Partner Domestic Partner Phone Father Name Payroll Officer Status 03/15/20 24 1 AB Positive 188 CLOSED Fetus Data First Name Last Name Admitted to NICU Weight (g) Sex Living Outcome Pediatric Complications Fetus ID Race Codes Race Delivery Type 3090.09 55 M true Full Term [email or web address] [id number] Vaginal Delivery Problems Problem Notes failed 1 hr - 3hr gtt 07/13Bo y,MFM Appt: 06/27 145p u/s and ov - no club foot noted on ultrasound.bg,rn Problem Name Start Date End Date Resolution Snomed Code Not e Gestational diabetes mellitus 10068403 serial joe wth , checking bs QID Anxiety 54577951 Untreated, possible panic attacks clubfoot 06/15/2024 13809640662527 possibly - to see [facility] 06/27 @ 1:45 Level II & OV History of SARS-CoV-2 07/06/2024 244183188508567710 Gonorrhea 46648831 treated José Calculation JOSÉ Calculation Method Initial [...] Weight in lbs Pre/Post Dialysis Refused Weight 188.209632334128 BP Diastolic BP Location Tested BP Systolic BP Type 75 L arm 121 sitting Fetus Heart Rate Present A 153 Fetus Movement Comments This patient is a 23-year-ol d 3 para 832385 weeks' gestation who presents for initial care. [...] Weight in lbs Pre/Post Dialysis Refused Weight 190.336805774227 BP Diastolic BP Location Tested BP Systolic BP Type 82 L arm 127 sitting Fetus Heart Rate Present A 145 Fetus Movement A No Comments reports recent chest pain, l ikely she related to anxiety attack, she was laying down. With the tightness and shortness in her sternum help high. [place] like there was a bubble there was [...] Weight in lbs Pre/Post Dialysis Refused Weight 190.241157938088 BP Diastolic BP Location Tested BP Systolic [...] Type Weight in lbs Pre/Post Dialysis Refused 195.051143275292 BP Diastolic BP Location Tested BP Systolic BP Type 82 L arm 138 sitting Fetus Heart Rate Present A 141 Fetus Movement A Yes Comments no complaints, no problems, routine care, no contractions, no vaginal bleeding, no loss of fluid, no cramping Discussed possible clubfoot -to see [facility] Flowsheet Date 06/20/2024 [place] Score Blood [...] Weight in lbs Pre/Post Dialysis Refused Weight 193.731439975750 BP Diastolic BP Location Tested BP Systolic [...] Type Weight in lbs Pre/Post Dialysis Refused 192.084452155494 BP Diastolic BP Location Tested BP Systolic [...] Weight in lbs Pre/Post Dialysis Refused Weight 195.574919772381 BP Diastolic BP Location Tested BP Systolic [...] Weight in lbs Pre/Post Dialysis Refused Weight 192.830101173413 BP Diastolic BP Location Tested BP Systolic BP Type 84 L arm 130 sitting Fetus Heart Rate Present A 127 Fetus Movement A Yes Comments Patient c/o of Mathews Callahan . Good movement. No bleeding or [...] Weight in lbs Pre/Post Dialysis Refused Weight 192.823981068674 BP Diastolic BP Location Tested BP Systolic [...] Estim ated Date of Delivery false Thalassemia (Arabic, Kazakh, Mediterranean, Or Background): MCV < 80 false Neural Tube Defect (Meningomyelocele, Spina Bifi da, Or Anencephaly) false Congenital Heart Defect false Down Syndrome false Boris-Sachs (eg, Roman Catholic, Cajun, Slovenian-Gosper) f alse Edward Disease false Sickle Cell Disease Or Trait () false Hemophilia Or Other Blood Disorders false Muscular Dystrophy false Cystic Fibrosis false Dryden's Chorea false Intellectual Disability/Autism false If Yes, [...]
--- OUTSIDE RECORDS SUMMARY | 2024-10-11 05:29 | XMS_ITS | Continuity of Care Document ---
Author Organization [facility] [place] Address [address] [place] [address] Assessment No assessment recorded. Plan of Treatment [...] cy No observ ation record ed. [email or web address] [place] [address], [place], [address], 03/15/2024 13:14:11 03/15/20 24 03/15/2024 US, obste tric, nucha l trans lucen cy No observ ation record ed. [email or web address] [address], [place], [address], 03/15/2024 19:37:42 05/11/2005/11/2024 US, obste tric, 2nd or 3rd trime ster No observ ation record ed. [email or web address] [address], [place], [address], 05/11/2024 13:43:07 05/11/20 24 05/11/2024 US, obste tric, 2nd or 3rd trime ster No observ ation record ed. [email or web address] [address], [place], [address], 05/14/2024 11:07:43 05/11/20 24 05/11/2024 US, obste tric, 2nd or 3rd trime ster No observ ation record ed. [email or web address] [address], [place], [address], 05/14/2024 11:05:54 06/15/20 24 06/15/2024 US, obste tric, follo w-up No observ ation record ed. [facility] [address], [place], [address], 06/15/2024 17:26:20 06/15/20 24 06/15/2024 US, obste tric, follo w-up No observ ation record ed. JANELL [address], [place], [address], 06/20/2024 10:48:00 06/27/20 24 06/27/2024 US, obste tric, follo w-up No observ ation record ed. [facility] [address] [place], [address], 07/16/2024 17:57:03 08/03/20 24 08/03/2024 US, obste tric, follo w-up No observ ation record ed. [facility] [address], [place], [address], 08/03/2024 17:17:41 08/03/20 24 08/03/2024 US, obste tric, follo w-up No observ ation record ed. [email or web address] [address], [place], [address], 08/06/2024 15:39:18 08/24/20 24 08/24/2024 US, obste tric, follo w-up No observ ation record ed. [email or web address] [place] [address], [place], [address], 08/24/2024 13:56:13 08/24/20 24 08/24/2024 US, obste tric, follo w-up No observ ation record ed. JANELL [address], [place], [address], 08/27/2024 10:28:40 Result Notes None recorded. Problems Name Problem SNOMED Code Status Onset Date Resolution Date Notes Provider Name and Address Organization Details Recorded Time Pregnanc y 21915916 Completed 202309/13/2024 Harjeet puga, [facility] 4 16:27:58 Anxiety 02447393 Completed Untreate d, possible panic attacks Nilton Rodríguez MD [address], [place], [address], [facility] 4 13:07:27 Gonorrhe a 19675889 Completed treated Nilton Rodríguez MD [address], [place], [address], [facility] 4 13:07:27 clubfoot 7514043607 9101 Completed 2023 [facility] 06/27 @ 1:45 Level II & OV Eun puga, [facility] 4 14:54:27 History of SARS-CoV -2 1269567545 12775561 Active 2023 ROSALBA CHAVEZ MD [address], [place], [address], [facility] 4 11:18:44 History of SARS-CoV -2 3331991117 61697661 Completed 2023 ROSALBA CHAVEZ MD [address], [place], [address], [facility] 4 11:18:44 Gestatio nal diabetes mellitus 21237359 Completed serial growth , checking bs TINA Fishman null, [facility] 4 17:55:50 Gestatio nal diabetes mellitus 48476917 Active serial growth , checking bs QID [...] Prescribe d Elsewhere : No Locati on: [facility] Mo keeley By: agustin En counter DateTime: 9 07:41:11 PM Not Available Not Available Not Available Vitals Date Recorded Body height Body mass index (BMI) Body weight Systolic blood pressure Diastolic blood pressure Provider Name and Address Organization Details Last Updated DateTime 07/20/2024 165.1 cm 32 kg/m2 08284.73 504 g 112 mm[Hg] 72 mm[Hg] Jenny Mccarty [facility] 4 12:00:54 Social History Question Answer Notes LastModified by Organizat ion Details LastModified Time What Is Your Level Of Alcohol Consumption? Occasional [email or web address] Information not available 02/16/2024 How Many Years Have You Consumed Alcohol? 5 [email or web address] Information not available 02/16/2024 Are You Blind Or Do You Have Difficulty Seeing? No [email or web address] Information not available 02/16/2024 What Is Your Level Of Caffeine Consumption? Heavy Information not available 02/16/2024 How Much Tobacco Do You Chew? None [email or web address] Information not available 02/16/2024 In The 14 Days Before Symptom Onset, Have You Had Close Contact With A Laboratory-confir med COVID-19 While That Case Was Ill? No [email or web address] Information not available 02/16/2024 In The 14 Days Before Symptom Onset, Have You Had Close Contact With A Person Who Is Under Investigation For COVID-19 While That Person Was Ill? No [email or web address] Information not available 02/16/2024 Have You Been To An Area Known To Be High Risk For COVID-19? No [email or web address] Information not available 02/16/2024 Are You Currently Employed? Yes [email or web address] Information not available 03/15/2024 Are You Deaf Or Do You Have Serious Difficulty Hearing? No [email or web address] Information not available 02/16/2024 What Type Of Diet Are You Following? REGULAR [email or web address] Information not available 02/16/2024 What Is The Highest Grade Or Level Of School You Have Completed Or The Highest Degree You Have Received? EO93142-1 [email or web address] Information not available 02/16/2024 What Is Your Occupation? [place] [employer] [email or web address] Information not available 02/16/2024 Are There Any Guns Present In Your Home? No [email or web address] Information not available 02/16/2024 Do You Use Protection During Sex? No [email or web address] Information not available 02/16/2024 Do You Use Your Seat Belt Or Car Seat Routinely? Yes [email or web address] Information not available 02/16/2024 Are You Sexually Active? Yes [email or web address] Information not available 03/15/2024 Do You Have Smoke And Carbon Monoxide Detectors In Your Home? Yes [email or web address] Information not available 02/16/2024 How Much Tobacco Do You Smoke? No [email or web address] Information not available 02/16/2024 Do You Feel Stressed (tense, Restless, Nervous, Or Anxious, Or Unable To Sleep At Night)? BN9760-1 [email or web address] Information not available 02/16/2024 Do You Use Any Illicit Or Recreational Drugs? Yes [email or web address] Information not available 02/16/2024 Do You Use Sunscreen Routinely? No Information not available 02/16/2024 Have You Used IV Drugs? No [email or web address] Information not available 02/16/2024 Sex: Unknown Functional Status Question Answer Note LastModified by Organizat ion Details LastModified Time Do you have difficulty walking or climbing stairs? No Information not available 03/15/2024 Are you able to walk? YESWOREST [email or web address] Information not available 02/16/2024 Are you able to care for yourself? Yes Information not available 03/15/2024 Do you have difficulty dressing or bathing? No Information not available 03/15/2024 What is your exercise level? Occasional [email or web address] Information not available 02/16/2024 Mental Status None [...] Diagnosis/Indication Diagnosis SNOMED-CT Code Diagnosis ICD10 Code 099599 Rajani Octavio [facility] [address],[place] [address] 06/20/2024 11:57:10 06/21/2024 09:03:31 05136412 Z33.1 [id number] ROSALBA CHAVEZ MD [place] [address],[place] [address] 07/06/2024 10:13:34 07/06/2024 11:30:00 History of SARS-CoV-2 7517481923 10483601 Z86.16 Gestation period, 28 weeks 18906464 Z3A.28 [id number] Eun Dietrich [place] [address] [address] 07/20/2024 10:50:29 07/20/2024 14:01:45 Gestational diabetes mellitus 10074773 O24.410 [id number] ROSALBA CHAVEZ MD [place] [address],[place] [address] 07/20/2024 10:50:58 07/20/2024 15:19:49 Gestational diabetes mellitus 71279157 O24.410 History of SARS-CoV-2 29 91789938 89810833 Z86.16 Gestation period, 30 weeks 23470540 Z3A.30 Health Concerns Section Related Observation LastModified by Organization Detai ls LastModified Time None Recorded Concern Status LastModified by Organization Details LastModified Time None Recorded Payers Encounter Date Sequence Insurance Name Policy Number Policy Cast Covered Member ID Cast Member ID Guarantor Name 07/20/2024 1 PREETHI SPark! [id number] Veena Montalvo [id number] Veena Montalvo OBGyn Episode Ob Episode Information Episode Created Date Number of Fetuses Patient Bloodtype Patient rh Status Prepregnancy Weight lbs Domestic Partner Domestic Partner Phone Father Name Felled Seam Operator Status 03/15/20 24 1 AB Positive 188 CLOSED Fetus Data First Name Last Name Admitted to NICU Weight (g) Sex Living Outcome Pediatric Complications Fetus ID Race Codes Race Delivery Type 3090.09 55 M true Full Term [email or web address] [id number] Vaginal Delivery Problems Problem Notes failed 1 hr - 3hr gtt 07/13Bo y,MFM Appt: 06/27 145p u/s and ov - no club foot noted on ultrasound.bg,rn Problem Name Start Date End Date Resolution Snomed Code Not e Gestational diabetes mellitus 80784907 serial joe wth , checking bs QID Anxiety 96068139 Untreated, possible panic attacks clubfoot 06/15/2024 59506856429155 possibly - to see [facility] 06/27 @ 1:45 Level II & OV History of SARS-CoV-2 07/06/2024 494292111242724748 Gonorrhea 21815765 treated José Calculation JOSÉ Calculation Method Initial [...] Weight in lbs Pre/Post Dialysis Refused Weight 188.478536011245 BP Diastolic BP Location Tested BP Systolic BP Type 75 L arm 121 sitting Fetus Heart Rate Present A 153 Fetus Movement Comments This patient is a 23-year-ol d 3 para 805654 weeks' gestation who presents for initial care. [...] Weight in lbs Pre/Post Dialysis Refused Weight 190.038281791967 BP Diastolic BP Location Tested BP Systolic BP Type 82 L arm 127 sitting Fetus Heart Rate Present A 145 Fetus Movement A No Comments reports recent chest pain, l ikely she related to anxiety attack, she was laying down. With the tightness and shortness in her sternum help high. [place] like there was a bubble there was [...] Weight in lbs Pre/Post Dialysis Refused Weight 190.110954580298 BP Diastolic BP Location Tested BP Systolic [...] Type Weight in lbs Pre/Post Dialysis Refused 195.175722130545 BP Diastolic BP Location Tested BP Systolic BP Type 82 L arm 138 sitting Fetus Heart Rate Present A 141 Fetus Movement A Yes Comments no complaints, no problems, routine care, no contractions, no vaginal bleeding, no loss of fluid, no cramping Discussed possible clubfoot -to see [facility] Flowsheet Date 06/20/2024 Copeland Score Blood [...] Weight in lbs Pre/Post Dialysis Refused Weight 193.995090058162 BP Diastolic BP Location Tested BP Systolic [...] Type Weight in lbs Pre/Post Dialysis Refused 192.622948107856 BP Diastolic BP Location Tested BP Systolic [...] Weight in lbs Pre/Post Dialysis Refused Weight 195.991057326890 BP Diastolic BP Location Tested BP Systolic [...] Weight in lbs Pre/Post Dialysis Refused Weight 192.355113994192 BP Diastolic BP Location Tested BP Systolic BP Type 84 L arm 130 sitting Fetus Heart Rate Present A 127 Fetus Movement A Yes Comments Patient c/o of [place]ahan . Good movement. No bleeding or [...] Weight in lbs Pre/Post Dialysis Refused Weight 192.272148506529 BP Diastolic BP Location Tested BP Systolic [...] Estim ated Date of Delivery false Thalassemia (Greek, Polish, Mediterranean, Or Background): MCV < 80 false Neural Tube Defect (Meningomyelocele, Spina Bifi da, Or Anencephaly) false Congenital Heart Defect false Down Syndrome false Boris-Sachs (eg, Yarsani, Cajun, Omani-Hendricks) f alse Edward Disease false Sickle Cell Disease Or Trait () false Hemophilia Or Other Blood Disorders false Muscular Dystrophy false Cystic Fibrosis false Tad's Chorea false Intellectual Disability/Autism false If Yes, [...]
--- OUTSIDE RECORDS SUMMARY | 2024-10-11 05:29 | XMS_ITS | Clinical Summary ---
Author Organization [facility] [employer] Address [address] [place] [address] Care Team Providers Care Lawn Mower Repairer Name Role Phone Unavailable Primary Care Provider Unavailabl e Source Comments [facility] [employer],non-owned Affiliates and Associated Physician Practices is amultiple site organization consisting of ambulatory clinics and hospital sitesin [place], [place], [place] and [place]. This disclosure is being madepursuant to the Care Everywhere program and may not contain all information available regarding this patient. Last updated 18.[facility] [employer] Allergies No known active allergies Medications Be [...] 06/27/2024 2:37 PM CDT Plan of Treatment Health Maintenance Due Date Last Done Comments PAP SMEAR 1998 HIV SCREENING 2013 HPV VACCINE (1 - 3-dose series) 2013 HEPATITIS C SCREENING 05/21/2016 DTAP/TDAP/TD VACCINES (1 - Tdap) 2017 HEPATITIS B VACCINE (1 of 3 - 19+ 3-dose series) 2017 DEPRESSION SCREENING 10/24/2023 OB-ONE HOUR GLUCOSE 06/16/2024 OB-TDAP CURRENT 06/23/2024 COVID-19 VACCINE (1 - 2023-2 5 season) 2024 INFLUENZA VACCINE (#1) 2024 OB-RHOGAM INJECTION 06/30/2024 OB-GROUP B STREP SCREEN 08/18/2024 ZOSTER VACCINE (1 of 2) 2048 HIB VACCINE Aged Out No longer eligi ble based on patient's age to complete this topic MENINGOCOCCAL VACCINE Aged Out No linda stanley eligible based on patient's age to complete this topic PNEUMOCOCCAL VACCINE Aged Out No long er eligible based on patient's age to complete this topic Respiratory Syncytial Virus (RSV) Vaccine Pt: or over 60 yrs (No Doses Required) Completed
--- OUTSIDE RECORDS SUMMARY | 2024-10-11 09:18 | XMS_ITS | Clinical Summary ---
Author Organization [facility] [employer] Address [address] [place] [address] Care Team Providers Care Trim Sawyer Name Role Phone Unavailable Primary Care Provider Unavailabl e Source Comments [facility] [employer],non-owned Affiliates and Associated Physician Practices is amultiple site organization consisting of ambulatory clinics and hospital sitesin [place], [place], [place]. This disclosure is being madepursuant to the Care Everywhere program and may not contain all information available regarding this patient. Last updated 18.[facility] [employer] Allergies No known active allergies Medications Be [...]
--- OUTSIDE RECORDS SUMMARY | 2024-10-11 09:18 | XMS_ITS | Referral Summary ---
Author Organization [facility] [employer] Address [address] [place] [address] Care Team Providers Care Incoming Inspector Name Role Phone Unavailable Primary Care Provider Unavailabl e Source Comments [facility] [employer],non-owned Affiliates and Associated Physician Practices is amultiple site organization consisting of ambulatory clinics and hospital sitesin [place], [place], [place] and [place]. This disclosure is being madepursuant to the Care Everywhere program and may not contain all information available regarding this patient. Last updated 18.[facility] [employer] Allergies No known active allergies Medications Be [...]
--- OUTSIDE RECORDS SUMMARY | 2024-10-11 09:19 | XMS_ITS | Patient Health Summary ---
Author Organization [facility] [employer] Address [address] [place] [address] Care Team Providers Care Guard Range Name Role Phone Unavailable Primary Care Provider Unavailabl e Note from [facility] [employer] [facility],non-owned Affiliates and Associated Physician Practices is amultiple site organization consisting of ambulatory clinics and hospital sitesin [place], [place], [place] and [place]. This disclosure is being madepursuant to the Care Everywhere program and may not contain all information available regarding this patient. Last updated 18.[facility] [employer] Allergies No known active allergies Medications Be [...] unspecified fetus (HCC), Encounter for anatomic survey ([facility]) Results * SONOGRAM - COMPLETE (06/27/2024 1:48 PM CDT) Anatomical Region Laterality Modality Other 06/27/2024 1:48 PM CDT Narrative 06/27/2024 3:21 PM CDT ? [facility] ?[facility] Care Center ?PHONE: ??FAX: Pat. Name: ?VEENA SUH Pat. No: ?[id number] Study Date: ?? 06/27/2024 ??1:48pm , Age: ? 2000, 24 Pregnancies: ?? 3, Para 0020 Height: ? 65 in Weight: ? 195 lb LMP: ?Unknown GA by US: ? 29w3d ?? JOSÉ: 09/09/2024 GA Selected: ??27w4d (From Known E) JOSÉ: ?09/22/2024 Referring MD: Nilton Rodríguez MD Machine I Cutter: ??Malika Tapia RDMS CPT4: ? 36890 BMI: ?32.45 Hist/Ind: ? Suspected clubfoot on outside U/S ?Low-risk cf-DNA & limited carrier screen ?Class I obesity MEASUREMENTS & AGE ? GROWTH EVALUATION Measurement ??GA ? Range ? Srce %for GA Ratios ----- ---- ------- BPD ??7.6 cm 30w2d (33l0w-17r5p) Hadl BPD 97% FL/BPD 0.71 (0.71 - 0.87) HC ??27.3 cm 29w5d (88m4s-36g4v) Hadl HC ??85% FL/AC ??0.22 (0.20 - 0.24) AC ??24.5 cm 28w5d (61v1k-82r1k) Hadl AC ??77% HC/AC ??1.11 (1.00 - 1.18) FL ?? 5.4 cm 28w4d (25t3m-27z5a) Hadl FL ??65% CI ? 0.79 (0.70 - 0.86) HL ?? 4.7 cm 27w4d (66b4k-40p2b) Landry HL ??51% Cere 3.2 cm 27w3d (00y2o-78p9k) Hill Cere46% GA for sonogram 29w3d (49w8w-07q2j) ?? Weight Estimate: based on (BPD,HC,AC,FL) Avg [...] gestation by stated EDC * Referred to [facility] for obstetrical U/S & request for [...] Signature> ??06/27/2024 03:18pm R Jaylan Rodríguez MD [facility] ORDERABLES
--- OUTSIDE RECORDS SUMMARY | 2024-10-11 09:19 | XMS_ITS | Encounter Summary ---
Author Organization [facility] Address [address] [place] [address] Care Team Providers Care Machine Accountant Name Role Phone Unavailable Primary Care Provider Unavailabl e Reason for Visit * Reason Onset Date Comments Appointment 06/18/2024 LM for pt to C/S appt Encounter Details Date Type Department Care Team (Late st Contact Info) Description 06/18/2024 Telephone [facility] Women's Health Maternal & Care [address] [place] [id number] Estephanie Prince Appointment (LM for pt [...]
--- OUTSIDE RECORDS SUMMARY | 2024-10-11 09:19 | XMS_ITS | Encounter Summary ---
Author Organization [facility] Address [address] [place] [address] Care Team Providers Care Primary Care Nurse Practitioner Name Role Phone Unavailable Primary Care Provider Unavailabl e Reason for Referral * (Routine) - Open Specialty Diagnoses / Procedures Referred By Contac t Referred To Contact Diagnoses Club foot of fetus affecting antepartum care of mother, single or unspecified fetus (HCC) Encounter for anatomic survey (HCC) Procedures SONOGRAM - COMPLETE Carlyle Rodríguez MD [address] [place] [address] Referral ID Status Reason Start Date Expiration Date Visits Re quested Visits Authorized [id number] Open 06/18/2024 06/18/2025 1 1 * Consultation (Routine) - Open Specialty Diagnoses / Procedures Referred By Contac t Referred To Contact Diagnoses Club foot of fetus affecting antepartum care of mother, single or unspecified fetus (HCC) Encounter for anatomic survey (HCC) Carlyle Rodríguez MD [address] [place] [address] Referral ID Status Reason Start Date Expiration Date V isits Requested Visits Authorized [id number] Open Specialty Services Required 06/18/2024 06/18/2025 3 3 Reason for Visit * Reason Comments Ultrasound Maternal Medicine Consultation Encounter Details Date Type Department Care Team (Latest Contact Info) Description 06/27/2024 1:39 PM CDT - 06/27/2024 11:59 PM CDT Hospital Encounter [facility]aternal & Care [address] [id number] Escobar Diaz MD [address] [phone] Discharge Disposition: Home or Self Care Social [...] changes litter box. Patient works FT in [employer] and is on her feet a lot. Urine dip today shows +1 protein, negative ketones, glucose and blood. Patient has no concerns today other than ultrasound in regards to club foot. Janet Xiao RN 06/27/2024 2:41 PM documented in this encounter Consult Notes * Escobar Diaz MD - 06/27/2024 3:11 PM CDT MFM CONSULT * Burger IUP at 27 weeks of gestation by stated EDC * Referred to [facility] for obstetrical U/S & request for [...] * Thank you very much for requesting [facility] participation in her obstetrical care * Findings were explained & questions were addressed & precautions were given to patient * U/S does not detect all structural, genetic & functional kwbgzkbt-ruhqi-acjpdhcll abnormalities * Telemedicine services were performed for this U/S examination & MFM consultation Patient's identity was confirmed at the [facility] office Appropriateness of the telehealth consult was confirmed Informed consent for telemedicine services was obtained & scanned into EMR Modality was secure interactive audio-video session using Nirvaha/Quora Patient site location was [facility] & nurse presenter was [...] Genetic syndromes: Hook; Uzair; PierreRobin; Lozoya-Shokeir; Meckel-Blake Urzxu-Mttvy-Sbnmg; Cox; Lambert TARP (Talipes equinovarus, ASD, Aaron [...] as 25% References cited above [facility] Anomalies Consult Series #2: Extremities Escobar Diaz MD Assistant Chief Train Dispatcher, M[employer] INSTRUCTOR [facility] Medicine documented in this encounter Plan [...] CDT Narrative 06/27/2024 3:21 PM CDT ? [facility] Center ?PHONE: ??FAX: Pat. Name: ?DAVID SUH Pat. No: ?[id number] Study Date: ?? 06/27/2024 ??1:48pm , Age: ? 2000, 24 Pregnancies: ?? 3, Para 0020 Height: ? 65 in Weight: ? 195 lb LMP: ?Unknown GA by US: ? 29w3d ?? JOSÉ: 09/09/2024 GA Selected: ??27w4d (From Known E) JOSÉ: ?09/22/2024 Referring MD: Nilton Rodríguez MD Publicity Consultant: ??Malika Tapia RDMS CPT4: ? 68566 BMI: ?32.45 Hist/Ind: ? Suspected clubfoot on outside U/S ?Low-risk cf-DNA & limited carrier screen ?Class I obesity MEASUREMENTS & AGE ? GROWTH EVALUATION Measurement ??GA ? Range ? Srce %for GA Ratios ----- ---- ------- BPD ??7.6 cm 30w2d (53p2q-81n8k) Hadl BPD 97% FL/BPD 0.71 (0.71 - 0.87) HC ??27.3 cm 29w5d (83m7f-24s1w) Hadl HC ??85% FL/AC ??0.22 (0.20 - 0.24) AC ??24.5 cm 28w5d (28m8s-46l2k) Hadl AC ??77% HC/AC ??1.11 (1.00 - 1.18) FL ?? 5.4 cm 28w4d (10y9j-12i5m) Hadl FL ??65% CI ? 0.79 (0.70 - 0.86) HL ?? 4.7 cm 27w4d (56z5r-80v9b) Landry HL ??51% Cere 3.2 cm 27w3d (35p9x-76r3w) Hill Cere46% GA for sonogram 29w3d (43r4p-23b6f) ?? Weight Estimate: based on (BPD,HC,AC,FL) Avg [...] gestation by stated EDC * Referred to [facility] for obstetrical U/S & request for [...] of the general concerns (see consult in [facility]) ? At present she declines follow-up U/S in attempt to clear the remaining anatomy Escobar Diaz MD <Electronic Signature> ??06/27/2024 03:18pm R Jaylan Rodríguez MD [facility] ORDERABLES documented in this encounter Visit Diagnoses Diagnosis 27 weeks gestation of (HCC)- Primary state, incidental Club foot of fetus affecting antepartum care of mother, single or unspecified fetus (HCC) Encounter for anatomic survey ([facility]) Encounter for anatomic survey Club foot of fetus affecting antepartum care of mother, single or unspecified fetus (HCC)- Primary Encounter for anatomic survey (HCC) Encounter for anatomic survey documented in this encounter
--- OUTSIDE RECORDS SUMMARY | 2024-10-11 09:19 | XMS_ITS | Encounter Summary ---
Author Organization [facility], 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, single or unspecified fetus (HCC) Encounter for anatomic survey (HCC) Procedures SONOGRAM - COMPLETE Carlyle Rodríguez MD [address] [place] [address] Referral ID Status Reason Start Date Expiration Date Visits Re quested Visits Authorized [id number] Open 06/18/2024 06/18/2025 1 1 Encounter Details Date Type Department Care Team (Latest Contact Info) Description 06/27/2024 1:38 PM CDT Hospital Encounter [facility] [address] [place] [address] Escobar Diaz MD [address] [facility] [address] [place] [address] Discharge Disposition: Home or Self [...] Narrative 06/27/2024 3:21 PM CDT ? [facility] ?Maternal and Care Center ?PHONE: ??FAX: Pat. Name: ?VEENA SUH Pat. No: ?[id number] Study Date: ?? 06/27/2024 ??1:48pm , Age: ? 2000, 24 Pregnancies: ?? 3, Para 0020 Height: ? 65 in Weight: ? 195 lb LMP: ?Unknown GA by US: ? 29w3d ?? JOSÉ: 09/09/2024 GA Selected: ??27w4d (From Known E) JOSÉ: ?09/22/2024 Referring MD: Nilton Rodríguez MD Dope Firer: ??Malika Tapia RDMS CPT4: ? 62147 BMI: ?32.45 Hist/Ind: ? Suspected clubfoot on outside U/S ?Low-risk cf-DNA & limited carrier screen ?Class I obesity MEASUREMENTS & AGE ? GROWTH EVALUATION Measurement ??GA ? Range ? Srce %for GA Ratios ----- ---- ------- BPD ??7.6 cm 30w2d (57n9n-74q7w) Hadl BPD 97% FL/BPD 0.71 (0.71 - 0.87) HC ??27.3 cm 29w5d (20r6z-90q7l) Hadl HC ??85% FL/AC ??0.22 (0.20 - 0.24) AC ??24.5 cm 28w5d (22q8d-01g9g) Hadl AC ??77% HC/AC ??1.11 (1.00 - 1.18) FL ?? 5.4 cm 28w4d (18b6u-10p1u) Hadl FL ??65% CI ? 0.79 (0.70 - 0.86) HL ?? 4.7 cm 27w4d (23u0y-18s1g) Landry HL ??51% Cere 3.2 cm 27w3d (55i3q-45y5a) Hill Cere46% GA for sonogram 29w3d (93m2d-37c4o) ?? 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
== END 2024-10-07 02:36 | disposition home or self-care (01) ==
PROVIDERS: Emergency Provider Student in an Organized Health Care Education/Training Program
DX: K82.9 Disease of gallbladder, unspecified (principal); R94.5 Abnormal results of liver function studies; R82.71 Bacteriuria
CPT/HCPCS: 36415; 74177; 80053; 81001; 81025; 83690; 85025; 87086; 93005; 99284; Q9967

== ENCOUNTER 2025-05-06 21:59 | Emergency (ER) | payer OTHER, SELFPAY ==
[2025-05-06 22:00] VITALS: BP 122/79; PULSE 90; RESP 19; TEMP 36.5; O2SAT 100
--- OUTSIDE RECORDS SUMMARY | 2025-05-06 22:01 | XMS_ITS | Clinical Summary ---
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 This disclosure is being madepursuant to the Care Everywhere program and may not contain all information available regarding this patient. Last updated 18.[facility] Allergies No known active allergies Medications * Be aware that medications may not be up to date on this document. Alwaysverify current medications with the patient. 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 Gender Identity Not on file Sexual Orientation Not on file Last Filed Vital Signs Vital Sign Reading Time Taken Comments Blood Pressure 116/62 06/27/2024 2:37 PM CDT Pulse 92 06/27/2024 2:37 PM CDT Temperature - - Respiratory Rate - - Oxygen Saturation - - Inhaled Oxygen Concentration - - Weight 86.6 kg (191 lb) 06/27/2024 2:37 PM CDT Height 167.6 cm (5' 6) 06/27/2024 2:37 PM CDT Body Mass Index 30.83 06/27/2024 2:37 PM CDT Plan of Treatment Health Maintenance Due Date Last Done Comments HIV SCREENING 2013 HPV VACCINE (1 - 3-dose series) 2013 HEPATITIS C SCREENING 05/21/2016 DTAP/TDAP/TD VACCINES (1 - Tdap) 2017 HEPATITIS B VACCINE (1 of 3 - 19+ 3-dose series) 2017 PAP SMEAR 2019 COVID-19 VACCINE (1 - 2023-2 5 season) 2024 DEPRESSION SCREENING 10/24/2024 INFLUENZA VACCINE (#1) 2025 ZOSTER VACCINE (1 of 2) 2048 HIB VACCINE Aged Out No longer eligi ble based on patient's age to complete this topic MENINGOCOCCAL (Group B) VACC INE SHARED DECISION-MAKING Aged Out No longer eligibl e based on patient's age to complete this topic MENINGOCOCCAL GROUPS A/C/Y/W VACCINE Aged Out No longer eligible b ased on patient's age to complete this topic PNEUMOCOCCAL VACCINE Aged Out No long er eligible based on patient's age to complete this topic
--- OUTSIDE RECORDS SUMMARY | 2025-05-06 22:01 | XMS_ITS | Clinical Summary ---
Author Organization [facility] [address] Address [address] [place] [address] Care Team Providers Care Rn Telephone Triage Name Role Phone Unavailable Primary Care Provider Unavailabl e Allergies No known active allergies Medications No known medications Social History Tobacco Use Types Packs/Day Years Used Date Smoking Tobacco: Never Assessed Comments Unknown Sex and Gender Information Value Date Recorded Sex Assigned at Not on file Legal Sex Female 10:03 AM CDT Gender Identity Not on file Sexual Orientation Not on file Last Filed Vital Signs Vital Sign Reading Time Taken Comments Blood Pressure 138/76 01/21/2025 1:54 PM CDT Pulse - - Temperature 37.1 C (98.7 F) 01/21/2025 1:54 PM CDT Respiratory Rate 20 01/21/2025 1:54 PM CDT Oxygen Saturation 100% 01/21/2025 1:54 PM CDT Inhaled Oxygen Concentration - - Weight - - Height - - Body Mass Index - - Plan of Treatment Health Maintenance Due Date Last Done Comments HPV VACCINES (1 - 3-dose series) 2013 DTAP/TDAP/TD VACCINES (1 - Tdap) 2017 HEPATITIS B VACCINES (1 of 3 - 19+ 3-dose series) 12/2016 CERVICAL CANCER SCREENING 2019 HPV/Cotest (21-29) 2019 PAP SMEAR 2019 INFLUENZA VACCINE (#1) 2025
--- OUTSIDE RECORDS SUMMARY | 2025-05-06 22:02 | XMS_ITS | Data Portability ---
Author Organization [facility] [place] Address [address] [place] [address] [place] [address] Assessment No assessment recorded. Plan of Treatment Reminders Order Date Submit Date Provider Last Modified By Organization Details Last Modified Time Details Appointments None recorded. Lab None recorded. Referral None recorded. Procedures None recorded. Surgeries None recorded. Imaging US, obstetric, follow-up 2023 024 [email or web address] 4 [place] [facility] [address], [place], [address], 4 12:55:57 Medication Orders Xulane 150 mcg-35 mcg/24 hr transdermal patch 2024 025 [id number], [address], [place], [place], [id number], 12:06:19 Patient TargetsNo targets recorded. Patient InstructionsNo instructions recorded. Reason for Referral None Reported. Results Created Date Observation Date Name Description Value Unit Range Abnormal Flag Note LastModifiedBy Organization Detail LastModifiedTime 07/13/2007/13/2024 GTT - GESTA AUTUMN L, 3 HOUR, ACOG glucose, fasting acog 74 mg/dL 70-94 Fasti ng: Y Not Available [facility] (Lab) [address], [place], [address], 07/14/2024 06:32:16 07/13/20 24 07/13/2024 GTT - GESTA AUTUMN L, 3 HOUR, ACOG glucose, 1 hour acog 166 mg/dL 70-179 Fasti ng: Y Not Available [facility] (Lab) [address] [place], [address], 07/14/2024 06:32:16 07/13/20 24 07/13/2024 GTT - GESTA AUTUMN L, 3 HOUR, ACOG glucose, 2 hour acog 169 mg/dL 70-154 high Fasti ng: Y Not Available [facility] (Lab) [address] [place], [address], 07/14/2024 06:32:16 07/13/20 24 07/13/2024 GTT - GESTA AUTUMN L, 3 HOUR, ACOG glucose, 3 hour acog 148 mg/dL 70-139 high Fasti ng: Y Not Available [facility] (Lab) [address] [place], [address], 07/14/2024 06:32:16 08/31/20 24 08/31/2024 CULTU RE: GROUP B STREP SCREE N, REFLE X SUSCE PTIBI LITY result report SEE RESULT S BELOW Test: Cultu re: Group B Strep , Refle x Susce ptibi lity ([facility] ) Speci men Sourc e: Vagin a/Rec darío Speci men Type: Vagin al/Re ctal Speci men Date: 2023 1606 Resul t Date: 09/03 1404 Resul t Statu s: Final resul t Abnor mal: No Resul ting Lab: [facility] [address] [facility] [address] Tel: CULTU RE ----- ----- ----- --- No Group B strep isola va at 2 days (juanjo ctive broth enhan cemen t) Not Available [facility] (Lab) [address] [place], [address], 09/03/2024 15:07:41 08/03/20 24 08/03/2024 US, obste tric, follo w-up No observ ation record ed. [facility] [address], [place], [address], 08/03/2024 17:17:41 08/03/20 24 08/03/2024 US, obste tric, follo w-up No observ ation record ed. [email or web address] [address], [place], [address], 08/06/2024 15:39:18 08/24/20 24 08/24/2024 US, obste tric, follo w-up No observ ation record ed. [facility] [address], [place], [address], 08/24/2024 13:56:13 08/24/20 24 08/24/2024 US, obste tric, follo w-up No observ ation record ed. JANELL [place] [address], [place], [address], 08/27/2024 10:28:40 Result Notes None recorded. Problems Name Problem SNOMED Code Status Onset Date Resolution Date Notes Provider Name and Address Organization Details Recorded Time Pregnanc y 00636254 Completed 202309/13/2024 Harjeet puga, [facility] 4 16:27:58 Anxiety 81316732 Completed Untreate d, possible panic attacks Nilton Rodríguez MD [address], [place], [address], [place] [facility] 4 13:07:27 Gonorrhe a 82139127 Completed treated Nilton Rodríguez MD [address], [place], [address], [facility] 4 13:07:27 clubfoot [id number] 9101 Completed 2023 possibly - [facility] 4 @ 1:45 Level II & OV Eun puga, [facility] 4 14:54:27 History of SARS-CoV -2 3680861610 35797094 Active 2023 ROSALBA CHAVEZ MD [address], [place], [address], [facility] 4 11:18:44 History of SARS-CoV -2 4650570414 66464633 Completed 2023 ROSALBA CHAVEZ MD [address], [place], [address], [facility] 4 11:18:44 Gestatio nal diabetes mellitus 53601694 Completed serial growth , checking bs QID Anu puga, [facility] 4 17:55:50 Gestatio nal diabetes mellitus 22248828 Active serial growth , checking bs QID Anu puga, [facility] 4 17:55:50 Problem Notes None recorded. Medical Equipment None Reported. Allergies No known drug allergies Medications Name Sig Start Date Stop Date Status Note LastModified by Organization Details LastModified Time Zofran 4 mg tablet Take 1 tablet every 4-6 hours by oral route as needed. 07/06 completed Not Available Not Available Not Available 10/26 completed Not Available Not Available Not Available Nexplanon 68 mg subdermal implant Insert 02/15 completed Prescrib ed Elsewher e: No Locat ion: [place] [facility] M odify By: agustin cabrera DateTime : 01/19/20 07:41:11 PM Not Available Not Available Not Available Xulane 150 mcg-35 mcg/24 hr transderm al patch Apply 1 patch every week by transder mal route for 90 days. 2024 active Not Available Not Available Not Avai lable Vitals Date Recorded Body height Body mass index (BMI) Body weight Systolic And Diastolic Provider Name and Address Organization Details Last Updated DateTime 10/26/2024 165.1 cm 30.3 kg/m2 06280.81 g 141/84 mm[Hg] [facility] 10/26/2024 09:35:47 Date Recorded Body height Body mass index (BMI) Body weight Systolic And Diastolic Provider Name and Address Organization Details Last Updated DateTime 08/07/2024 165.1 cm 32.4 kg/m2 07676.51 g 138/82 mm[Hg] [facility] 08/07/2024 14:59:08 Date Recorded Body height Body mass index (BMI) Body weight Systolic And Diastolic Provider Name and Address Organization Details Last Updated DateTime 08/24/2024 165.1 cm 32 kg/m2 54322.74 g 130/84 mm[Hg] [facility] 08/24/2024 12:36:29 Date Recorded Body height Body mass index (BMI) Body weight Systolic And Diastolic Provider Name and Address Organization Details Last Updated DateTime 08/31/2024 165.1 cm 32 kg/m2 73735.74 g 136/84 mm[Hg] [facility] 08/31/2024 16:14:53 Social History Question Answer Notes LastModified by Organizat ion Details LastModified Time How Many Years Have You Consumed Alcohol? 5 Information not available 02/16/2024 Are You Blind Or Do You Have Difficulty Seeing? No [email or web address] Information not available 02/16/2024 What Is Your Level Of Caffeine Consumption? Heavy [email or web address] Information not available 02/16/2024 How Much Tobacco Do You Chew? None Information not available 02/16/2024 In The 14 Days Before Symptom Onset, Have You Had Close Contact With A Laboratory-confirme d COVID-19 While That Case Was Ill? No [email or web address] Information n ot available 02/16/2024 In The 14 Days Before Symptom Onset, Have You Had Close Contact With A Person Who Is Under Investigation For COVID-19 While That Person Was Ill? No [email or web address] Information not available 02/16/2024 Have You Been To An Area Known To Be High Risk For COVID-19? No Information not available 02/16/2024 Are You Deaf Or Do You Have Serious Difficulty Hearing? No [email or web address] Information not available 02/16/2024 What Type Of Diet Are You Following? REGULAR [email or web address] Information n ot available 02/16/2024 What Is The Highest Grade Or Level Of School You Have Completed Or The Highest Degree You Have Received? [id number] [email or web address] Information not available 02/16/2024 Are There Any Guns Present In Your Home? No Information not available 02/16/2024 Do You Use Protection During Sex? No [email or web address] Information not available 02/16/2024 Do You Use Your Seat Belt Or Car Seat Routinely? Yes [email or web address] Information not available 02/16/2024 Are You Sexually Active? Yes [email or web address] Information not available 03/15/2024 Do You Have Smoke And Carbon Monoxide Detectors In Your Home? Yes [email or web address] Information not available 02/16/2024 How Much Tobacco Do You Smoke? No [email or web address] Information not available 02/16/2024 Do You Use Sunscreen Routinely? No [email or web address] Information not available 02/16/2024 Have You Used IV Drugs? No [email or web address] Information not available 02/16/2024 Do You Have Difficulty Walking Or Climbing Stairs? No [email or web address] Information not available 03/15/2024 Sex: Unknown Functional Status Question Answer Note LastModified by Organizat ion Details LastModified Time Do you use any illicit or recreational drugs? Yes Information not available 02/16/2024 What is your level of alcohol consumption? Occasional Information not available 02/16/2024 Are you currently employed? Yes [email or web address] Information not available 03/15/2024 Are you able to walk? YESWOREST [email or web address] Information not available 02/16/2024 Are you able to care for yourself? Yes [email or web address] Information not available 03/15/2024 What is your occupation? [employer] pull[employer] [email or web address] Information not available 02/16/2024 Do you have difficulty dressing or bathing? No Information not available 03/15/2024 What is your exercise level? Occasional [email or web address] Information not available 02/16/2024 Mental Status Question Answer Note LastModified by Organization D etails LastModified Time Do you feel stressed (tense, restless, nervous, or anxious, or unable to sleep at night)? [id number] [email or web address] Information not available 02/16/2024 Family History Nothing Reported. Medical History Condition [...] of Flow (days) 4 Current Control Method None Frequency of Cycle (Q days) 0 Sexually [...] Diagnosis/Indication Diagnosis SNOMED-CT Code Diagnosis ICD10 Code Diagnosis Note [id number] MD Tammi Villagomez [address] [address] 02/16/2024 14:16:31 02/16/2024 14:59:03 screening 327658123 Z36.87 Z3A.08 [id number] Nilton Rodríguez MD [place] [address],[place] [address] 02/16/2024 14:18:49 02/16/2024 16:24:21 Amenorrhea 52810158 N91.2 this patient is a 23-year-ol d female who presents for amenorrhea . She is a positive test. Ultrasound revealed a 1st trimester gestation. Patient has no complaints . We talked about early care. Talked about genetic screening. We talked about her ultrasound results. We talked about the 12 week ultrasound that has genetic screening components . She was given recommenda tions on exercise, diet, over-the-c ounter medication s. We reviewed her obstetric history. We reviewed her medical history. We reviewed her social history. She will begin routine care at her next visit. [id number] Nilton Rodríguez MD [place] [address],[place] [address] 03/15/2024 11:52:10 03/15/2024 12:37:30 screening 083886394 Z36.82 Z3A.12 [id number] Nilton Rodríguez MD [place] [address],[place] [address] 03/15/2024 11:52:27 03/15/2024 14:55:19 Routine care 111988074 Z34.91 [id number] Nilton Rodríguez MD [place] [address],[place] [address] 04/13/2024 10:24:09 04/13/2024 11:46:23 Routine care 352324466 Z34.91 [id number] Nilton Rodríguez MD [place] [address],[place] [address] 05/11/2024 11:22:03 05/11/2024 12:25:31 screening for malformation 827359667 Z36.3 Z3A.20 [id number] Nilton Rodríguez MD [place] [address],[place] [address] 05/11/2024 11:22:58 05/11/2024 13:09:20 Routine care 821429125 Z34.91 [id number] Nilton Rodríguez MD [place] [address],[place] [address] 06/15/2024 10:50:40 06/15/2024 12:21:12 screening 860230087 Z36.2 Z3A.25 [id number] MD Tammi Villagomez [address],[place] [address] 06/15/2024 10:50:59 06/15/2024 12:49:10 Routine care 243594413 Z34.91 [id number] Nilton Rodríguez MD [place] [address],[place] [address] 06/20/2024 11:57:10 06/21/2024 09:03:31 50169741 Z33.1 [id number] ROSALBA CHAVEZ MD [place] [address],[place] [address] 07/06/2024 10:13:34 07/06/2024 11:30:00 History of SARS-CoV-2 6372564575 77476186 Z86.16 - bASA- growth US at 32 weeks Gestation period, 28 weeks 55235880 Z3A.28 [id number] Nilton Rodríguez MD [place] [address],[place] [address] 07/20/2024 10:50:29 07/20/2024 14:01:45 Gestational diabetes mellitus 75581918 O24.410 Pt here for diet teaching. Went over ideal ranges for FBS and pp BS. Went over carb counting and carb ranges for each meal/snack . Gave ideas for foods to eat for meals/snac ks. Discussed drink options and to avoid soda and juice. Told pt she can go online to [employer] for meal options or to look up low carb meal recipes online for ideas as well. Pt has not picked up glucometer yet. Told pt pick this up DANG to start checking BS QID and adjusting diet to follow low carb diet to try to keep BS within normal range. Pt aware if sugars aren't controlled by diet we would discuss starting insulin. Pt to keep upcoming appts and continue to check BS QID and follow diet instructio ns for her and baby's health. Pts questions were answered and pt verbalized understand ing. VENKATESH dahl [id number] ROSALBA CHAVEZ MD [place] [address],[facility] [address] 07/20/2024 10:50:58 07/20/2024 15:19:49 Gestational diabetes mellitus 47133304 O24.410 - diet teaching at 30 weeks- f/pp blood sugar checks- serial growth US History of SARS-CoV-2 29 62981712 50214582 Z86.16 - bASA- growth US at 32 weeks Gestation period, 30 weeks 06414181 Z3A.30 [id number] Nilton Rodríguez MD [place] [address],[place] [address] 08/03/2024 10:22:11 08/03/2024 11:26:00 Gestational diabetes mellitus 99331062 O24.410 Z86.16 Z3A.32 Pt here for diet teaching. Went over ideal ranges for FBS and pp BS. Went over carb counting and carb ranges for each meal/snack . Gave ideas for foods to eat for meals/snac ks. Discussed drink options and to avoid soda and juice. Told pt she can go online to ADA for meal options or to look up low carb meal recipes online for ideas as well. Pt has not picked up glucometer yet. Told pt pick this up DANG to start checking BS QID and adjusting diet to follow low carb diet to try to keep BS within normal range. Pt aware if sugars aren't controlled by diet we would discuss starting insulin. Pt to keep upcoming appts and continue to check BS QID and follow diet instructio ns for her and baby's health. Pts questions were answered and pt verbalized understand ing. VENKATESH dahl [id number] ROSALBA CHAVEZ MD [place] [address] [address] 08/07/2024 14:44:04 08/07/2024 16:05:05 Gestational diabetes mellitus 05180593 O24.410 - diet teaching at 30 weeks- f/pp blood sugar checks- serial growth US Gestation period, 33 weeks 05337942 Z3A.33 - continue PNV [id number] Nilton Rodríguez MD [place] [address],[place] [address] 08/24/2024 11:27:16 08/24/2024 12:10:58 Gestational diabetes mellitus 81270132 O24.410 Z86.16 Z3A.35 Pt here for diet teaching. Went over ideal ranges for FBS and pp BS. Went over carb counting and carb ranges for each meal/snack . Gave ideas for foods to eat for meals/snac ks. Discussed drink options and to avoid soda and juice. Told pt she can go online to ADA for meal options or to look up low carb meal recipes online for ideas as well. Pt has not picked up glucometer yet. Told pt pick this up DANG to start checking BS QID and adjusting diet to follow low carb diet to try to keep BS within normal range. Pt aware if sugars aren't controlled by diet we would discuss starting insulin. Pt to keep upcoming appts and continue to check BS QID and follow diet instructio ns for her and baby's health. Pts questions were answered and pt verbalized understand ing. VENKATESH dahl [id number] ROSALBA CHAVEZ MD [place] [address],[place] [address] 08/24/2024 11:28:00 08/24/2024 12:53:50 Gestational diabetes mellitus 22465333 O24.410 - diet teaching at 30 weeks- f/pp blood sugar checks- serial growth clubfoot 745629111 1 9101 O35.HXX9 Gestation period, 35 weeks 60968254 Z3A.35 [id number] ROSALBA CHAVEZ MD [place] [address],[place] [address] 08/31/2024 15:57:31 09/04/2024 02:40:03 Gestational diabetes mellitus 03685609 O24.410 - diet teaching at 30 weeks- f/pp blood sugar checks- serial growth US Gestation period, 37 weeks 27770788 Z3A.37 [id number] ROSALBA CHAVEZ MD [place] [address],[place] [address] 10/26/2024 09:27:56 10/26/2024 12:11:19 care 434602041 Z39.2 S/p PLTCS 6 weeks ago here today for a visit.1. Patient recovering well2. Plans to continue formula feeding3. Interested in control patch for contracept ion at this time. Risks, benefits, and alternativ es reviewed with the patient4. Patient instructed to follow up in 6 months for well woman exam unless need arises prior Health Concerns Section Related Observation LastModified by Organization Detai ls LastModified Time None Recorded Concern Status LastModified by Organization Details LastModified Time None Recorded Advance Directives Directive None Recorded Payers Insurance Date Sequence Insurance Name Policy Number Policy Cast Covered Member ID Cast Member ID Guarantor Name 10/26/2024 1 [id number] Veena Montalvo [id number] Veena Montalvo 10/26/2024 1 [facility] Veena [employer] [id number] Veena Montalvo Notes Date Note Type Note Provider Name and Address Organization Details Recorded Time 10/26/2024 text/html S/P on 09/03 at 37 weeks gestation. was complicated by GDM. Complications with delivery: none. Patient denies any specific problems since delivery. Patient overall feeling well. Patient is formula feeding without problems. Has had a period yet. No bleeding. Bowel and bladder function are normal. Pap due 2024. Denies any signs or symptoms of depression. Is coping with parenting well however concerned about increased anxiety once she returns to work and baby goes to daycare. Some anxiety currently, improving since delivery. Patient has been sexually active since delivery, no pain. Patient is interested in contraception at this time. ROSALBA CHAVEZ MD [address], [place], [address], [facility] 10/26/2024 12:07:12 OBGyn Episode Ob Episode Information Episode Created Date Number of Fetuses Patient Bloodtype Patient rh Status Prepregnancy Weight lbs Domestic Partner Domestic Partner Phone Father Name Welding Machine Operator Plasma Arc Status 10/18/20 24 1 CLOSED Fetus Data First Name Last Name Admitted to NICU Weight (g) Sex Living Outcome Pediatric Complications Fetus ID Race Codes Race Delivery Type , Spontane ous [id number] Tyson Calculation Initial Tyson Date Initial Exam Date Initial Exam Provider Initial Ultrasound Date Last Menstrual Period Date Ultra Sound Weeks Gestation 0 Eighteen To Twenty Week Tyson Update Ultra Sound Date Fundal Height At Umbil Quickening Date Ultra Sound Latest Weeks Gestation Final Tyson Confirmed By Final Tyson Confirmed Date Final Tyson Date Ultra Sound Latest Days Gestation 0 0 Menstrual History Last Menstrual Date Menses Monthly On Bcp Conception Prior Menses Frequency Hcg Plus Date Menarche Onset Age Delivery Information Delivery Date Delivery Type Labor Anesthesia Weeks Gestation Incision Type Labor Labor Length Hrs Delivered By Post Complications Tubal Sterilization Discharge Date Comments 3 Discharge Information Feeding Method Contraceptive Method Maternal HG B and HCT Levels Ob Episode Information Episode Created Date Number of Fetuses Patient Bloodtype Patient rh Status Prepregnancy Weight lbs Domestic Partner Domestic Partner Phone Father Name Welding Machine Operator Plasma Arc Status 10/18/20 24 1 CLOSED Fetus Data First Name Last Name Admitted to NICU Weight (g) Sex Living Outcome Pediatric Complications Fetus ID Race Codes Race Delivery Type , Spontane ous [id number] Tyson Calculation Initial Tyson Date Initial Exam Date Initial Exam Provider Initial Ultrasound Date Last Menstrual Period Date Ultra Sound Weeks Gestation 0 Eighteen To Twenty Week Tyson Update Ultra Sound Date Fundal Height At Umbil Quickening Date Ultra Sound Latest Weeks Gestation Final Tyson Confirmed By Final Tyson Confirmed Date Final Tyson Date Ultra Sound Latest Days Gestation 0 0 Menstrual History Last Menstrual Date Menses Monthly On Bcp Conception Prior Menses Frequency Hcg Plus Date Menarche Onset Age Delivery Information Delivery Date Delivery Type Labor Anesthesia Weeks Gestation Incision Type Labor Labor Length Hrs Delivered By Post Complications Tubal Sterilization Discharge Date Comments 2 Discharge Information Feeding Method Contraceptive Method Maternal HG B and HCT Levels Ob Episode Information Episode Created Date Number of Fetuses Patient Bloodtype Patient rh Status Prepregnancy Weight lbs Domestic Partner Domestic Partner Phone Father Name Welding Machine Operator Plasma Arc Status 03/15/20 24 1 AB Positive 188 CLOSED Fetus Data First Name Last Name Admitted to NICU Weight (g) Sex Living Outcome Pediatric Complications Fetus ID Race Codes Race Delivery Type 3090.09 55 M true Full Term [email or web address] [id number] Vaginal Delivery Problems Problem Notes failed 1 hr - 3hr gtt 07/13Bo y,MFM Appt: 06/27 145p u/s and ov - no club foot noted on ultrasound.,rn Problem Name Start Date End Date Resolution Snomed Code Not e Gestational diabetes mellitus 12604477 serial joe wth , checking bs QID Anxiety 37214989 Untreated, possible panic attacks clubfoot 06/15/2024 [id number] possibly - to see mfm - schd 06/27 @ 1:45 Level II & OV History of SARS-CoV-2 07/06/2024 [id number] Gonorrhea 07603526 treated Tyson Calculation Initial Tyson Date Initial Exam Date Initial Exam Provider Initial Ultrasound Date Last Menstrual Period Date Ultra Sound Weeks Gestation 09/22/2024 03/15/2024 02/16/2024 8 Eighteen To Twenty Week Tyson Update Ultra Sound Date Fundal Height At Umbil Quickening Date Ultra Sound Latest Weeks Gestation Final Tyson Confirmed By Final Tyson Confirmed Date Final Tyson Date Ultra Sound Latest Days Gestation 0 [email or web address] 03/15/2024 09/22/20 24 0 Pre-kailyn Flowsheet Flowsheet Date 03/15/2024 [place] Score Blood Edema Fundus Height Fundus Units Glucose Ketones Leukocytes Nitrite Labor Signs Protein Cervic Dilation Cervic Effacement Cervic Station Type Weight in lbs Pre/Post Dialysis Refused Weight 188.884480663170 BP Diastolic BP Location Tested BP Systolic BP Type 75 L arm 121 sitting Fetus Heart Rate Present A 153 Fetus Movement Comments This patient is a 23-year-ol d 3 para 430684 weeks' gestation who presents for initial care. [...] Weight in lbs Pre/Post Dialysis Refused Weight 190.664735303223 BP Diastolic BP Location Tested BP Systolic BP Type 82 L arm 127 sitting Fetus Heart Rate Present A 145 Fetus Movement A No Comments reports recent chest pain, l ikely she related to anxiety attack, she was laying down. With the tightness and shortness in her sternum help high. [place] like there was a bubble there was [...] Weight in lbs Pre/Post Dialysis Refused Weight 190.779329342220 BP Diastolic BP Location Tested BP Systolic [...] Type Weight in lbs Pre/Post Dialysis Refused 195.046672788204 BP Diastolic BP Location Tested BP Systolic [...] Weight in lbs Pre/Post Dialysis Refused Weight 193.679023275101 BP Diastolic BP Location Tested BP Systolic [...] Type Weight in lbs Pre/Post Dialysis Refused 192.231383267668 BP Diastolic BP Location Tested BP Systolic [...] Weight in lbs Pre/Post Dialysis Refused Weight 195.126979742728 BP Diastolic BP Location Tested BP Systolic [...] Weight in lbs Pre/Post Dialysis Refused Weight 192.626743033348 BP Diastolic BP Location Tested BP Systolic BP Type 84 L arm 130 sitting Fetus Heart Rate Present A 127 Fetus Movement A Yes Comments Patient c/o of Treutlen Callahan . Good movement. No bleeding or [...] Weight in lbs Pre/Post Dialysis Refused Weight [id number] BP Diastolic BP Location Tested BP Systolic [...] Estim ated Date of Delivery false Thalassemia (Citizen Of [place], Albanian, Mediterranean, Or Background): MCV < 80 false Neural Tube Defect (Meningomyelocele, Spina Bifi da, Or Anencephaly) false Congenital Heart Defect false Down Syndrome false Boris-Sachs (eg, Cheondoism, Cajun, Sri Lankan-Kazakh) f alse Edward Disease false Sickle Cell Disease Or Trait () false Hemophilia Or Other Blood Disorders false Muscular Dystrophy false Cystic Fibrosis false Asotin's Chorea false Intellectual Disability/Autism false If Yes, [...]
--- NOTE | 2025-05-06 22:24 | PC.NURSE ---
Patient stating that the attack is over so I'm going to go home Pain has resolved
--- OUTSIDE RECORDS SUMMARY | 2025-05-06 22:30 | XMS_ITS | Clinical Summary ---
Author Organization [facility] Address [address] [place] [address] Care Team Providers Care Delimer Name Role Phone Unavailable Primary Care Provider Unavailabl e Source Comments [facility],non-owned Affiliates and Associated Physician Practices is amultiple site organization consisting of ambulatory clinics and hospital sitesin [place], [place], [place] and [place]. This disclosure is being madepursuant to the Care Everywhere program and may not contain all information available regarding this patient. 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
--- OUTSIDE RECORDS SUMMARY | 2025-05-06 22:30 | XMS_ITS | Clinical Summary ---
Author Organization [facility] [address] Address [address] [place] [address] Care Team Providers Care Runstitching Machine Operator Name Role Phone Unavailable Primary Care [...]
== END 2025-05-06 22:24 | disposition left against medical advice (07) ==
DX: R10.10 Upper abdominal pain, unspecified (principal)
CPT/HCPCS: 99199

== ENCOUNTER 2025-07-23 12:41 | Emergency (ER) | payer OTHER, SELFPAY ==
--- NOTE | ~2025-07-23 | XR_ITS ---
EXAMINATION: XR chest 1V portable COMPARISON: No comparisons available. HISTORY: dizziness, LIGHT HEADED FINDINGS: The lungs are clear, no effusion. No pneumothorax. Heart is normal size. Mediastinal and hilar contours are within normal limits. Bony thorax no acute abnormality. Miscellaneous: None Impression: No acute cardiopulmonary abnormality. Reviewed, dictated and finalized at location P. Impression: No acute cardiopulmonary abnormality.
--- OUTSIDE RECORDS SUMMARY | 2025-07-23 12:45 | XMS_ITS | Encounter Summary ---
Author Organization [facility] Address [address] [place] [address] Care Team Providers Care Warehouse Packer Name Role Phone Unavailable Primary Care Provider Unavailabl e Reason for Visit * Reason Onset Date Comments Surgery 07/22/2025 Encounter Details Date Type Department Care Team (Late st Contact Info) Description 07/22/2025 Telephone [facility] Surgical Spec [place] [id number] [place] [address] Don Bradford MD [address] [place] [address] Surgery Social History Tobacco Use Types Packs/Day Years Used Date Smoking Tobacco: Never Smokeless Tobacco: Never Alcohol Use Standard Drinks/Week Comments Not Currently 0 (1 standard drink = 0.6 oz pur e alcohol) Food Insecurity Answer Date Recorded Patient needs follow up regardin 07/12/2025 Transportation Needs Answer Date Record ed Patient needs follow up regardin 07/12/2025 Utility Needs Answer Date Recorded Patient needs follow up regardin 07/12/2025 Comments No Sex and Gender Information Value Date Recorded Sex Assigned at Not on file Legal Sex Female 10:03 AM CDT Gender Identity Not on file Sexual Orientation Not on file documented as of this encounter Miscellaneous Notes * Telephone Encounter - Tania Marrufo - 07/22/2025 8:29 AM CDT Patient had left voicemail Tuesday afternoon returning a call from our office. I attempted to call her again this morning to give her arrival time for surgery with Dr. Bradford on Tuesday but was not able to leave a message again. Patient is supposed to arrive on Tuesday07/26/25 at 10:25 am for her surgery. documented in this encounter Plan of Treatment Upcoming Encounters Date Type Department Care Team (Latest Contact Info) Description 07/26/2025 12:12 PM CDT Hospital Encounter [facility] Operating Room [address] [place] [phone] Don Bradford MD [address] [place] [address] Calculus of gallbladder with acute cholecystitis without obstruction 07/26/2025 12:12 PM CDT - 07/26/2025 1:47 PM CDT Surgery [facility] Operating Room [address] [place] [address] Don Bradford MD [address] [place] [address] CHOLECYSTECTOMY LAPAROSCOPIC 08/12/2025 1:00 PM CDT Office Visit [facility] Surgical Spec [place] [address] [place] [address] Don Bradford MD [address] [place] [address] Scheduled Procedures Name Priority Associated Diagnoses Date/Ti me CHOLECYSTECTOMY LAPAROSCOPIC Calculus of gallbladder with acute cholecystitis without obstruction 07/26/2025 12:12 PM CDT documented as of this encounter Visit Diagnoses Not on filedocumented in this encounter
--- OUTSIDE RECORDS SUMMARY | 2025-07-23 12:45 | XMS_ITS | Clinical Summary ---
Author Organization [facility] [address] Address [address] [place] [address] Care Team Providers Care Executive Admin Name Role Phone Unavailable Primary Care Provider Unavailabl e Allergies Active Allergy Reactions Criticality Noted Date Comments Latex Other (See Comments) 07/12/2025 Burning Medications No known medications Active Problems Problem Noted Date Diagnosed Date Gallstones 07/09/2025 Encounters Date Type Department Care Team Description 07/22/2025 Telephone [facility] Surgical Spec [place] [address] [place] [address] Don Bradford MD Surgery 07/22/2025 Telephone [facility] Surgical Spec [place] [address] [place] [phone] Don Bradford MD Surgery 07/19/2025 Telephone [facility] Surgical Spec [place] [address] [place] [address] Don Bradford MD Surgery 07/16/2025 External Device Data STL ABSTRACTION Provider, Abstract 07/16/2025 External Device Data STL ABSTRACTION Provider, Abstract 07/16/2025 External Device Data STL ABSTRACTION Provider, Abstract 07/15/2025 Prep for Surgery [facility] Surgical Spec [place] [id number] [place] [address] Jenny Hernandes RN Gallstones (Primary Dx) 07/10/2025 Abstract [facility] Surgical Spec [place] [address] [place] [address] Estephanie Romero RN 07/09/2025 9:15 AM CDT Office Visit [facility] [address] [place] [address] Don Bradford MD Gallstones (Primary Dx) from Last 3 Months Social History Tobacco Use Types Packs/Day Years Used Date Smoking Tobacco: Never Smokeless Tobacco: Never Tobacco Cessation:Counseling Given: Not [...] Sign Reading Time Taken Comments Blood Pressure 119/81 07/09/2025 9:20 AM CDT Pulse 82 07/09/2025 9:20 AM CDT Temperature 37.1 C (98.7 F) 01/21/2025 1:54 PM CDT Respiratory Rate 20 01/21/2025 1:54 PM CDT Oxygen Saturation 100% 07/09/2025 9:20 AM CDT Inhaled Oxygen Concentration - - Weight 86.6 kg (191 lb) 07/12/2025 10:42 AM CDT Height 167.6 cm (5' 6) 07/12/2025 10:42 AM CDT Body Mass Index 30.83 07/12/2025 10:42 AM CDT Plan of Treatment Upcoming Encounters Date Type Department Care Team (Latest Contact Info) Description 07/26/2025 12:12 PM CDT Hospital Encounter [facility] Operating Room [address] [place] [address] Don Bradford MD [address] [place] [address] Calculus of gallbladder with acute cholecystitis without obstruction 07/26/2025 12:12 PM CDT - 07/26/2025 1:47 PM CDT Surgery [facility] Operating Room [address] [place] [address] Don Bradford MD [address] [place] [address] CHOLECYSTECTOMY LAPAROSCOPIC 08/12/2025 1:00 PM CDT Office Visit [facility] Surgical Spec [place] [id number] [place] [address] Don Bradford MD [address] [place] [address] Scheduled Procedures Name Priority Associated Diagnoses Date/Ti me CHOLECYSTECTOMY LAPAROSCOPIC Calculus of gallbladder with acute cholecystitis without obstruction 07/26/2025 12:12 PM CDT Health Maintenance Due Date Last Done Comments CERVICAL CANCER SCREENING 2019 HPV/Cotest (21-29) 2019 PAP SMEAR 2019 DTAP/TDAP/TD VACCINES (2 - T d or Tdap) 06/06/2022 06/06/2012, 07/05/2002, 11/02/2001, Additional history exists INFLUENZA VACCINE (#1) 2025 HEPATITIS B VACCINES Completed 10/01/1999, 09/01/1999, 1998, Additional history exists HPV VACCINES Completed 07/08/2015, 06/06/2012 Insurance [employer]
--- OUTSIDE RECORDS SUMMARY | 2025-07-23 12:45 | XMS_ITS | Encounter Summary ---
Author Organization [facility] Address [address] [place] [address] Care Team Providers Care Basketball Referee Name Role Phone Unavailable Primary Care Provider Unavailabl e Reason for Visit * Reason Onset Date Comments Surgery 07/22/2025 Encounter Details Date Type Department Care Team (Late st Contact Info) Description 07/22/2025 Telephone [facility] Surgical Spec [place] [id number] [place] [address] Don Bradford MD [address] [place] [address] Surgery Social History Tobacco Use [...] Telephone Encounter - Tania Marrufo - 07/22/2025 9:42 AM CDT Patient returned my missed call and I provided her with her surgery arrival time of 10:25 am on this Tuesday. documented in this encounter Plan of Treatment Upcoming Encounters Date Type Department Care Team (Latest Contact Info) Description 07/26/2025 12:12 PM CDT Hospital Encounter [facility] Operating Room [address] [place] [address] Don Bradford MD [address] [place] [address] Calculus of gallbladder with acute cholecystitis without obstruction 07/26/2025 12:12 PM CDT - 07/26/2025 1:47 PM CDT Surgery [facility] Operating Room [address] [place] [address] Don Bradford MD [address] [place] [address] CHOLECYSTECTOMY LAPAROSCOPIC 08/12/2025 1:00 PM CDT Office Visit [facility] Surgical Spec [place] [address] [place] [address] Don Bradford MD [address] [place] [address] Scheduled Procedures Name Priority Associated Diagnoses Date/Ti me CHOLECYSTECTOMY LAPAROSCOPIC Calculus of gallbladder with acute cholecystitis without obstruction 07/26/2025 12:12 PM CDT documented as of this encounter Visit Diagnoses Not on filedocumented in this encounter
[2025-07-23 12:55] VITALS: BP 131/77; PULSE 137; RESP 20; TEMP 37.6; O2SAT 100
--- NOTE | 2025-07-23 12:59 | ECG_ITS ---
Test Date: 2025-07-23 13:39:32 Measurements Intervals [place] Rate: 125 P: 23 DE: 185 QRS: 43 QRSD: 80 T: 14 QT: 394 QTc: 569 Interpretive Statements SINUS TACHYCARDIA NONSPECIFIC T-WAVE ABNORMALITY ABNORMAL RHYTHM ECG Compared to ECG 10/06/2024 20:42:12 T-wave abnormality now present Sinus rhythm no longer present Electronically Signed On 07-23-2025 14:46:05 CDT by Sarah Pearson M.D.
--- NOTE | 2025-07-23 13:18 | ED_ITS ---
HPI - General Adult General Chief complaint: Dizziness Stated complaint: dizzy, fever 102 earlier today Time Seen by Provider: 07/23/25 12:48 History of Present Illness HPI narrative: 25-year-old female presents to the emergency department for evaluation increased generalized weakness and fatigue over the course of the last week and than worsening dizziness today while she was at work. Patient has had decreased p.o. intake due to intermittent abdominal pain. Patient is going to have her gallbladder removed on Tuesday at [facility]. Patient denies any current abdominal pain at this time. Patient states she does feel improved and denies any current dizziness but patient's heart rate is in the 130s. Patient states she does have history of possible white coat syndrome and does often have tachycardia when she goes to physicians offices. Patient declined any medications for anxiety control. Related Data Allergies Allergy/AdvReac Type Severity Reaction Status Date / Time No Known Allergies Allergy Verified 07/23/25 13:34 Review of Systems 2 Review of Systems: All systems reviewed & are unremarkable except as noted in HPI and below PMFSH Past Medical History Medical History History of miscarriage Surgical History Surgical History No history of previous surgery Social History Social History Smoking status: Never smoker Substance use: never Do You Feel Safe in your Home?: Yes Lack of Transportation: No Lack of Food: Never True Current Housing: I Have Housing Concerned About Future Housing: No Difficulty Paying Gas/Electric Bills: No Difficulty Paying for Meds: No Currently Unemployed: No Education: High School Diploma/GED Difficulty w/ Childcare or Family Care: No Spiritual care concerns: No Exam 2 Narrative: APPEARANCE: Well appearing, no pain, no distress, well-nourished. HEAD: normocephalic, atraumatic. EYES: PERRLA/EOMI, conjunctivae clear. NOSE: Normal no drainage EARS:TMS clear with good light reflex. THROAT: Pharynx clear, no exudate. NECK: Supple. No adenopathy, no masses. RESPIRATORY: Airway patent, respirations nonlabored. Clear to auscultation bilaterally, no rales, rhonchi, wheezing. CARDIOVASCULAR: Tachycardia ABDOMINAL: Soft, nontender, nondistended, normal bowel sounds MUSCULOSKELETAL: Moves all extremities. Strength/ROM intact, No edema, No calf tenderness. NEURO: Alert. Cranial nerves II through XII intact. Good gait. Good coordination SKIN: Warm, dry. Normal Color Course Vital Signs Vital signs: Vital Signs Temperature 99.7 F H 07/23/25 12:55 Pulse Rate 137 H 07/23/25 12:55 Respiratory Rate 20 07/23/25 12:55 Blood Pressure 131/77 07/23/25 12:55 Pulse Oximetry 100 07/23/25 12:55 Oxygen Delivery Room Air 07/23/25 12:55 Temperature 99.7 F H 07/23/25 12:55 Pulse Rate 98 07/23/25 16:23 Respiratory Rate 16 07/23/25 16:23 Blood Pressure 124/72 07/23/25 16:23 Pulse Oximetry 99 07/23/25 16:23 Oxygen Delivery Room Air 07/23/25 12:55 Medical Decision Making [facility] Narrative Medical decision making narrative: 25-year-old female presents emergency department for decreased p.o. intake and episode of dizziness. Patient was tachycardic upon arrival to the emergency department. Patient is currently afebrile no leukocytosis hemoglobin of 13.9. Patient has no significant abnormalities on her CMP, patient does have mild elevation AST and ALT but normal T bili alk-phos. Patient does have a a normal thyroid. UA was did have leukocyte esterase positive urine with a high white blood cell count and +1 bacteria with moderate squamous epithelials. Patient was negative for the flu RSV and for COVID. On re-evaluation after 2 L of lactated Ringer's patient does feel improved. Patient was able to ambulate at baseline with no complaints. Patient does contribute her rapid heart rate to tachycardia. Patient denies any chest pain or shortness of breath. Low concern for pulmonary embolism. Differential Diagnosis Differential Diagnosis: Dehydration, pulmonary embolism, near syncope, COVID, RSV, influenza, UTI Vital Signs Vital Signs: Vital Signs Temperature 99.7 F H 07/23/25 12:55 Pulse Rate 137 H 07/23/25 12:55 Respiratory Rate 20 07/23/25 12:55 Blood Pressure 131/77 07/23/25 12:55 Pulse Oximetry 100 07/23/25 12:55 Oxygen Delivery Room Air 07/23/25 12:55 Temperature 99.7 F H 07/23/25 12:55 Pulse Rate 98 07/23/25 16:23 Respiratory Rate 16 07/23/25 16:23 Blood Pressure 124/72 07/23/25 16:23 Pulse Oximetry 99 07/23/25 16:23 Oxygen Delivery Room Air 07/23/25 12:55 Lab Data Lab results reviewed: Yes I reviewed the patient's lab results. 07/23/25 13:22 07/23/25 13:22 Labs: Lab Results 07/23/25 07/23/25 Range/Units 13:22 14:03 WBC 9.2 (4.5-10.0) K/mm3 RBC 4.41 (4.2-5.4) M/mm3 Hgb 13.9 (12.0-15.0) g/dL Hct 40.6 (37.0-47.0) % MCV 92.1 (80-100) fl MCH 31.5 (26-34) pg MCHC 34.2 (32-36) g/dl RDW 11.9 (11.5-14.5) % Plt Count 228 (150-375) k/mm3 MPV 9.7 (7.4-10.4) fl Immature Gran % (Auto) 0.5 (0-0.5) % Neut % (Auto) 86.2 H (45.5-73.1) % Lymph % (Auto) 8.4 L (18.3-44.2) % [place] % (Auto) 4.5 (2.6-8.5) % Eos % (Auto) 0.0 (0-4.4) % Baso % (Auto) 0.4 (0.2-1.2) % Lymph # (Auto) 0.77 L (0.9-3.2) K/mm3 [place] # (Auto) 0.4 (0.1-0.6) K/mm3 Eos # (Auto) 0.0 (0-0.3) K/mm3 Baso # (Auto) 0.0 (0.0-0.1) K/mm3 Abs Immat Gran (auto) 0.05 H (0.00-0.031) K/mm3 Absolute Neuts (auto) 7.9 H (1.3-6.7) K/mm3 Absolute Nucleated RBC 0.000 (0.0-0.012) K/mm3 Nucleated RBC % 0.0 (0.0-0.2) % PT 12.6 (11.1-14.7) Seconds INR 0.9 APTT 25.9 (22.3-36.8) Seconds Sodium 137 (137-145) mmol/L Potassium 3.9 (3.4-5.0) mmol/L Chloride 103 (98-107) mmol/L Carbon Dioxide 23 (22-30) mmol/L Anion Gap 11 (4-12) mmol/L BUN 10 (7-17) mg/dL Creatinine 0.66 L (0.7-1.0) mg/dL Estim Creat Clear Calc 123 ml/min Estimated GFR > 60 (59 - ) Glucose 143 H (65-110) mg/dL Lactic Acid 1.7 (0.7-2.0) mmol/L Calcium 9.0 (8.4-10.2) mg/dL Magnesium 1.9 (1.6-2.3) mg/dL Total Bilirubin 0.8 (0.2-1.3) mg/dL AST 44 H (14-36) U/L ALT 55 H (6-35) U/L Alkaline Phosphatase 49 (38-126) U/L Total Protein 8.8 H (6.3-8.2) g/dL Albumin 5.0 (3.5-5.1) g/dL TSH (Reflex) 1.030 (0.465-4.68) uIU/mL Urine Color Yellow (Yellow) Urine Appearance Cloudy H (Clear) Urine pH 6.5 (5.0-9.0) Ur Specific [place] 1.006 (1.001-1.035) Urine Protein Negative (Negative) mg/dL Urine Glucose (UA) Negative (Negative) mg/dL Urine Ketones Negative (Negative) mg/dL Ur Blood (Man) 1+ H (Negative) Urine Nitrate Negative (Negative) Urine Bilirubin Negative (Negative) Urine Urobilinogen 0.2 (<2.0) mg/dL Leukocyte Esterase Rfl 1+ H (Negative) ENRIQUE/UL Urine RBC 0-2 (0-2) /hpf Urine WBC 6-10 H (0-3) /hpf Ur Squamous Epith Cells Moderate (Few) /hpf Urine Bacteria 1+ H /hpf Urine Casts 0-2 Influenza A (RT-PCR) Negative (Negative) Influenza B (RT-PCR) Negative (Negative) RSV (RT-PCR) Negative (Negative) SARS-CoV-2 RNA (RT-PCR) Negative (Negative) Imaging Data Radiologist's impression: Impressions Chest X-Ray 07/23/25 13:54 Impression: No acute cardiopulmonary abnormality. Discharge Plan Discharge Clinical Impression: Tachycardia, Dizziness, Dehydration Patient Disposition: Home Condition: Stable Instructions: Antibiotic Form, Dizziness (ED), Tachycardia (ED) Additional Instructions: Drink plenty of fluids. Continue to have close follow-up with your physicians as scheduled. If you have any worsening symptoms and please call or return to the emergency department. Patient Language: Swedish Prescriptions: No Action docusate sodium 100 mg Capsule 100 mg PO BID PRN (Reason: Constipation) Qty: 60 0RF ibuprofen 600 mg Tablet 600 mg PO Q6H PRN (Reason: Cramping) Qty: 30 0RF Follow-up/Referrals: PHYSICIAN NOT ON STAFF,NONSTAFF [Primary Care Provider] Stand Alone Forms: Work/School Release IP
--- OUTSIDE RECORDS SUMMARY | 2025-07-23 13:19 | XMS_ITS | Encounter Summary ---
Author Organization [facility] Address [address] [place] [address] Care Team Providers Care Care Worker Name Role Phone Unavailable Primary Care Provider Unavailabl e Reason for Visit * Reason Onset Date Comments Surgery 07/22/2025 Encounter Details Date Type Department Care Team (Late st Contact Info) Description 07/22/2025 Telephone [facility] Surgical Spec [place] [address] [place] [address] Don Bradford MD [address] [place] [address] Surgery Social History Tobacco Use [...] Care Team (Latest Contact Info) Description 07/26/2025 12:01 PM CDT Hospital Encounter [facility] Operating Room [address] [place] [phone] Don Bradford MD [address] [place] [address] Calculus of gallbladder with acute cholecystitis without obstruction 07/26/2025 12:01 PM CDT - 07/26/2025 1:36 PM CDT Surgery [facility] Operating Room [address] [place] [address] Don Bradford MD [address] [place] [address] CHOLECYSTECTOMY LAPAROSCOPIC 08/12/2025 1:00 PM CDT Office Visit [facility] Surgical Spec [place] [address] [place] [address] Don Bradford MD [address] [place] [address] Scheduled Procedures Name Priority Associated Diagnoses Date/Ti me CHOLECYSTECTOMY LAPAROSCOPIC Calculus of gallbladder with acute cholecystitis without obstruction 07/26/2025 12:01 PM CDT documented as of this encounter Visit Diagnoses Not on filedocumented in this encounter
--- OUTSIDE RECORDS SUMMARY | 2025-07-23 13:19 | XMS_ITS | Encounter Summary ---
Author Organization [facility] Address [address] [place] [address] Care Team Providers Care Steel Cutter Name Role Phone Unavailable Primary Care Provider Unavailabl e Reason for Visit * Reason Onset Date Comments Surgery 07/22/2025 Encounter Details Date Type Department Care Team (Late st Contact Info) Description 07/22/2025 Telephone [facility] Surgical Spec [place] [address] [place] [address] Don Bradford MD [address] [place] [address] Surgery Social History Tobacco Use [...] Description 07/26/2025 12:01 PM CDT Hospital Encounter [facility] Operating Room [address] [place] [address] Don Bradford MD [address] [place] [address] Calculus of gallbladder with acute cholecystitis without obstruction 07/26/2025 12:01 PM CDT - 07/26/2025 1:36 PM CDT Surgery [facility] Operating Room [address] [place] [address] Don Bradford MD [address] [place] [address] CHOLECYSTECTOMY LAPAROSCOPIC 08/12/2025 1:00 PM CDT Office Visit [facility] Surgical Spec [place] [address] [place] [address] Don Bradford MD [address] [place] [address] Scheduled Procedures Name Priority Associated Diagnoses Date/Ti me CHOLECYSTECTOMY LAPAROSCOPIC Calculus of gallbladder with acute cholecystitis without obstruction 07/26/2025 12:01 PM CDT documented as of this encounter Visit Diagnoses Not on filedocumented in this encounter
--- OUTSIDE RECORDS SUMMARY | 2025-07-23 13:19 | XMS_ITS | Clinical Summary ---
Author Organization true[x] [facility] [address] Address [address] [place] [address] Care Team Providers Care Collar Runner Name Role Phone Unavailable Primary Care Provider Unavailabl e Allergies Active Allergy Reactions Criticality Noted Date Comments Latex Other (See Comments) 07/12/2025 Burning Medications No known medications Active Problems Problem Noted Date Diagnosed Date Gallstones 07/09/2025 Encounters Date Type Department Care Team Description 07/22/2025 Telephone [facility] [place] [facility] [id number] [place] [phone] Don Bradford MD Surgery 07/22/2025 Telephone [facility] [place] [facility] [id number] [place] [phone] Don Bradford MD Surgery 07/19/2025 Telephone [facility] [place] [facility] [id number] [place] [phone] Don Bradford MD Surgery 07/16/2025 External Device Data [facility] ABSTRACTION Provider, Abstract 07/16/2025 External Device Data [facility] ABSTRACTION Provider, Abstract 07/16/2025 External Device Data [facility] ABSTRACTION Provider, Abstract 07/15/2025 Prep for Surgery [facility] [place] [facility] [id number] [place] [address] Jenny Hernandes RN Gallstones (Primary Dx) 07/10/2025 Abstract [facility] [place] [facility] [id number] [place] [address] Estephanie Romero RN 07/09/2025 9:15 AM CDT Office Visit [facility] [address], [address] [place] [address] Don Bradford MD Gallstones (Primary [...] Description 07/26/2025 12:01 PM CDT Hospital Encounter [facility] Operating Room [address] [place] [address] Don Bradford MD [address] [place] [address] Calculus of gallbladder with acute cholecystitis without obstruction 07/26/2025 12:01 PM CDT - 07/26/2025 1:36 PM CDT Surgery [facility] Operating Room [address] [place] [address] Don Bradford MD [address] [place] [address] CHOLECYSTECTOMY LAPAROSCOPIC 08/12/2025 1:00 PM CDT Office Visit [facility] [place] [facility] [id number] [place] [address] Don Bradford MD [address] [place] [address] Scheduled Procedures Name Priority Associated Diagnoses Date/Ti me CHOLECYSTECTOMY LAPAROSCOPIC Calculus of gallbladder with acute cholecystitis without obstruction 07/26/2025 12:01 PM CDT Health Maintenance Due Date Last [...]
[2025-07-23] MEDS: LACTATED RINGERS 2,000 ML 999 ML IV CONT (13:30)
[2025-07-23 13:31] LABS: Hematocrit 40.6 % (37.0-47.0); Hemoglobin 13.9 g/dL (12.0-15.0); Immature Granulocyte Percent A 0.5 % (0-0.5); Lymphocytes Absolute Auto 0.77 K/mm3 (0.9-3.2); Mean Corpuscular HGB Conc 34.2 g/dl (32-36); Mean Corpuscular Hemoglobin 31.5 pg (26-34); Mean Corpuscular Volume 92.1 fl (80-100); Nucleated Red Blood Cells Absolute Auto 0.000 K/mm3 (0.0-0.012); Nucleated Red Blood Cells Perc 0.0 % (0.0-0.2); Platelet Count Result 228 k/mm3 (150-375); Red Blood Count 4.41 M/mm3 (4.2-5.4); White Blood Count 9.2 K/mm3 (4.5-10.0)
[2025-07-23 13:42] LABS: INR 0.9; Prothrombin Time 12.6 Seconds (11.1-14.7)
[2025-07-23 13:43] LABS: Partial Thromboplastin Time 25.9 Seconds (22.3-36.8)
[2025-07-23 13:53] LABS: Alanine Aminotransferase 55 U/L (6-35); Albumin Level 5.0 g/dL (3.5-5.1); Alkaline Phosphatase 49 U/L (38-126); Anion Gap 11 mmol/L (4-12); Aspartate Amino Transferase 44 U/L (14-36); Bilirubin,Total 0.8 mg/dL (0.2-1.3); Blood Urea Nitrogen 10 mg/dL (7-17); Calcium 9.0 mg/dL (8.4-10.2); Carbon Dioxide 23 mmol/L (22-30); Chloride 103 mmol/L (98-107); Estimated CRCL calculation 123 ml/min; Estimated Glomerular Filt Rate > 60; Glucose 143 mg/dL (65-110); Magnesium 1.9 mg/dL (1.6-2.3); Potassium 3.9 mmol/L (3.4-5.0); Sodium 137 mmol/L (137-145); Total Protein 8.8 g/dL (6.3-8.2)
[2025-07-23] MEDS: ACETAMINOPHEN 500 MG TABLET 1000 MG PO (13:53)
[2025-07-23 14:07] LABS: Influenza A QL RT-PCR Negative (Negative); Influenza B QL RT-PCR Negative (Negative); RSV RNA, RT-PCR Negative (Negative); SARS-CoV-2 RNA PCR Negative (Negative)
[2025-07-23 14:12] LABS: Thyroid Stimulating Hormone Reflex 1.030 uIU/mL (0.465-4.68)
[2025-07-23 14:15] LABS: Add Urine Microscopic? YES; Appearance Urine Cloudy (Clear); Glucose Urine UA Negative (Negative); Leukocyte Esterase Ur 1+ LEU/UL (Negative); Nitrate Urine Negative (Negative); Non Pathogenic Casts 0-2; Specific Grav Ur 1.006 (1.001-1.035)
[2025-07-23] MEDS: cefTRIAXone 1 GM in SODIUM CHLORIDE 0.9% IV 50 ML 100 ML IVPB (15:12)
[2025-07-23 16:23] VITALS: BP 124/72; PULSE 98; RESP 16; O2SAT 99
== END 2025-07-23 16:27 | disposition home or self-care (01) ==
PROVIDERS: Emergency Provider Emergency Medicine
DX: R00.0 Tachycardia, unspecified (principal); E86.0 Dehydration; R42 Dizziness and giddiness; Z20.822 Contact with and (suspected) exposure to COVID-19
CPT/HCPCS: 36415; 71045; 80053; 81001; 83605; 83735; 84443; 85025; 85610; 85730; 87637; 93005; 96361; 96365; 99284; A9270; J0696; J7120